=== PATIENT | male | born 1955 | race African-American/Black ===

== ENCOUNTER 2022-01-23 08:38 | Outpatient (CLI) | payer MEDICARE, MEDICAID, SELFPAY ==
[2022-01-23 12:38] LABS: Albumin* 4.2 g/dL (3.3-5.0)
[2022-01-23 12:39] LABS: Chloride* 104 mmol/L (96-114); Potassium* 4.5 mmol/L (3.6-5.1); Sodium* 138 mmol/L (135-149)
[2022-01-23 12:41] LABS: Alkaline Phosphatase* 86 U/L (40-150); Aspartate Amino Transferase* 45 U/L (12-35); Bilirubin Total* 0.9 mg/dL (0.1-1.5); Blood Urea Nitrogen* 15 mg/dL (7-30); Carbon Dioxide* 29 mmol/L (20-32); Estimated Glomerular Filt Rate 84 ml/min
[2022-01-23 12:42] LABS: Alanine Aminotransferase* 19 U/L (4-50); Calcium* 8.6 mg/dL (8.4-10.6); Glucose* 187 mg/dL (60-115)
[2022-01-23 13:10] LABS: PSA Diagnostic* 0.37 ng/mL (0.10-4.00)
== END 2022-01-23 08:39 | disposition home or self-care (01) ==
PROVIDERS: PCP Family Medicine; Visit Provider Family Medicine
DX: I10 Essential (primary) hypertension (principal); C61 Malignant neoplasm of prostate; E66.9 Obesity, unspecified; I48.91 Unspecified atrial fibrillation; Z13.29 Encounter for screening for other suspected endocrine disorder
CPT/HCPCS: 80053; 84153; 84443

== ENCOUNTER 2022-02-05 10:37 | Emergency (ER) | payer MEDICARE, MEDICAID, SELFPAY ==
[2022-02-05 11:03] VITALS: BP 146/84; PULSE 69; RESP 18; TEMP 36.2; O2SAT 94; BMI 55.1
--- NOTE | 2022-02-05 12:15 | ED_ITS ---
HPI - Abdominal Pain General Chief Complaint: Abdominal Pain Stated Complaint: Abdominal pain Time Seen by Provider: 02/05/22 12:09 History of Present Illness HPI narrative: This 66-year-old male comes in reporting upper epigastric abdominal pain radiating through to his back. This is been present over the past 3 days or so but much worse recently. He states that he has a history of pancreatitis. He still has is gallbladder in place. He states that he does take alcohol. He has decreased food and drink intake recently due to his symptoms. He states that the pain last night was not tolerable. Related Data Home Medications Medication Instructions Recorded Confirmed ReliOn Flex Pen 12 unit INJECTION .Before Each Meal 09/26/21 amlodipine 10 mg tablet 10 mg PO QDAY 09/26/21 tadalafil 20 mg tablet (Cialis) 20 mg PO QDAY PRN 09/26/21 tizanidine 4 mg capsule 2 - 4 mg PO Q8H PRN 09/26/21 Previous Rx's Medication Instructions Recorded blood-glucose meter (Blood Glucose #1 ea 01/23/22 Monitoring kit) furosemide 40 mg tablet 40 mg PO BID #180 tabs 01/23/22 glipizide 10 mg tablet 10 mg PO BID #180 tabs 01/23/22 insulin aspart U-100 100 unit/mL 12 unit (0.12 mL) subcut TID #15 mL 01/23/22 (3 mL) subcutaneous pen levetiracetam 1,000 mg tablet See Rx Instructions .Route 01/23/22 .COMPLEX #225 tabs lisinopril 20 2 tab PO QDAY #180 tabs 01/23/22 mg-hydrochlorothiazide 12.5 mg tablet metformin 1,000 mg tablet 1,000 mg PO BIDWMEAL #180 tabs 01/23/22 metoprolol tartrate 50 mg tablet 50 mg PO BID #180 tabs 01/23/22 spironolactone 25 mg tablet 25 mg PO QDAY #90 tabs 01/23/22 warfarin 7.5 mg tablet 15 mg PO .UD #60 tabs 01/23/22 hydrocodone 5 mg-acetaminophen 325 1 tab PO Q4-6H PRN pain #12 tabs 02/05/22 mg tablet pantoprazole 20 mg tablet,delayed 20 mg PO DAILY #20 tabs 02/05/22 release (Protonix) Allergies Allergy/AdvReac Type Severity Reaction Status Date / Time No Known Allergies Allergy Unknown Unverified 12/21/21 16:00 Review of Systems Status of ROS Reports: 10 or more systems reviewed and unremarkable except as noted in History and below Narrative Constitutional: No fevers, no weight gain or loss. Eyes: No discharge. No vision changes. HENT: No congestion, no sore throat, no ear pain. Cardiovascular: No chest pain, no palpitations. Respiratory: No shortness of breath, no wheezes, no cough. Gastrointestinal: Upper epigastric abdominal pain with nausea. Pain radiates through to the back. Genitourinary: No dysuria, no hematuria. Musculoskeletal: Normal range of motion. Skin: No rashes, no pruritis. Neurological: No dizziness, weakness, sensory change, speech change. Endo/Heme/Allergies: No bruising or bleeding. No polydipsia. Pysch: no suicidality, no anxiety, no insomnia. All other systems reviewed and are negative. [facility] Surgical History History of esophageal surgery History of laminectomy History of tonsillectomy and adenoidectomy Social History Smoking Status: Former smoker Non-prescribed substance use: denies use Exam Narrative: Exam Narrative: Constitutional: Well-developed, well-nourished, no acute distress. HEENT: Normocephalic, atraumatic. Neck: Normal range of motion. Nontender. Supple. Heart: Regular. No murmurs. Normal rate. Intact distal pulses. Lungs: Clear to auscultation. No chest discomfort. No wheezes, rhonchi, or rales. Abdomen: Normal bowel sounds. Upper epigastric abdominal pain.. No rebound tenderness. Genitalia: Deferred. Back: No midline tenderness. Normal range of motion. Extremities: Normal range of motion. No injury. Skin: Intact. No rash. Warm. No erythema or pallor. Neurologic: No altered sensation. No weakness. Alert and oriented. Psychiatric: No suicidality. No anxiety or depression. No insomnia. Nursing notes and vitals signs are reviewed. Const: Vital Signs, click to edit/add: Vital Signs - 24 hr 02/05/22 11:03 Temperature 97.1 F L Pulse Rate [Right Pulse Oximeter] 69 Respiratory Rate 18 Blood Pressure [Ri ght Upper Arm] 146/84 H Pulse Oximetry 94 Oxygen Delivery Me thod Room Air Course Vital Signs Vital signs: Initial Vital Signs Temperature 97.1 F L 02/05/22 11:03 Temperature Source Temporal Artery Scan 02/05/22 11:03 Pulse Rate 69 02/05/22 11:03 Respiratory Rate 18 02/05/22 11:03 Blood Pressure 146/84 H 02/05/22 11:03 Blood Pressure Mean 104 02/05/22 11:03 Blood Pressure Position Sitting 02/05/22 11:03 Pulse Oximetry 94 02/05/22 11:03 Oxygen Delivery Method 02/05/22 11:03 Vital Signs Temperature 97.1 F L 02/05/22 11:03 Pulse Rate 69 02/05/22 11:03 Respiratory Rate 18 02/05/22 11:03 Blood Pressure 146/84 H 02/05/22 11:03 Pulse Oximetry 94 02/05/22 11:03 Oxygen Delivery Method 02/05/22 11:03 Temperature 97.1 F L 02/05/22 11:03 Pulse Rate 69 02/05/22 11:03 Respiratory Rate 18 02/05/22 11:03 Blood Pressure 146/84 H 02/05/22 11:03 Pulse Oximetry 94 02/05/22 11:03 Oxygen Delivery Method 02/05/22 11:03 MDM - Abdominal Pain MDM Narrative Medical decision making narrative: This patient comes in with upper epigastric abdominal pain that is suspicious for recurrent pancreatitis. An IV was established and the patient received 0.5 mg of Dilaudid and Zofran 4 mg. This brought sufficient relief to his pain. Lab results returned with reassuring findings. His lipase is actually within normal range. Other lab results also are reassuring. He may be exhibiting symptoms from chronic pancreatitis with a normal lipase level. In any event he is okay to return home as he has normal vital signs. I did prescribe Protonix and some tablets of [place]. I advised him to return if symptoms are recurrent or worsening. I advised him to avoid alcohol of course. Lab Data Labs: Lab Results 02/05/22 02/05/22 Range/Units 13:05 13:05 WBC 3.51 L (4.50-11.00) K/uL RBC 5.44 (4.30-5.90) m/uL Hgb 16.1 (13.5-17.5) gm/dL Hct 48.3 (37.0-53.0) % MCV 89 (80-100) fL MCH 30 (26-34) pg MCHC 33 (32-36) gm/dL RDW Coeff of Ramona 14.5 (11.5-15.5) % Plt Count 199 (140-440) K/uL Neut % (Auto) 46.5 (42.0-72.0) % Lymph % (Auto) 38.7 (20-44) % [place] % (Auto) 12.8 H (0.0-11.0) % Eos % (Auto) 1.4 (0.0-7.0) % Baso % (Auto) 0.3 (0.0-3.0) % Neut # (Auto) 1.60 L (1.7-7.0) K/uL Lymph # (Auto) 1.40 (0.90-2.90) K/uL [place] # (Auto) 0.40 (0.00-0.90) K/UL Eos # (Auto) 0.00 (0.00-0.50) K/uL Baso # (Auto) 0.00 (0.00-0.30) K/uL Sodium 137 (135-149) mmol/L Potassium 3.6 (3.6-5.1) mmol/L Chloride 93 L (96-114) mmol/L Carbon Dioxide 37 H (20-32) mmol/L BUN 23 (7-30) mg/dL Creatinine 1.3 (0.5-1.5) mg/dL Estimated Creat Clear 62.18 Estimated GFR 61 ml/min Glucose 94 (60-115) mg/dL Calcium 8.7 (8.4-10.6) mg/dL Total Bilirubin 0.6 (0.1-1.5) mg/dL Direct Bilirubin 0.3 (0.0-0.5) mg/dL AST 22 (12-35) U/L ALT 15 (4-50) U/L Alkaline Phosphatase 53 (40-150) U/L Total Protein 7.4 (6.0-8.3) g/dL Albumin 4.3 (3.3-5.0) g/dL Lipase 237 (23-300) U/L Ethyl Alcohol < 0.01 L (0.01-0.03) % Discharge Plan Discharge Clinical Impression: Chronic pancreatitis, Abdominal pain Patient Disposition: Home, Self-Care Condition: Improved Additional Instructions: Take medication as needed and indicated. Avoid alcohol. Follow up with MD or return if worsening symptoms happen. Prescriptions: New hydrocodone-acetaminophen 5-325 mg tablet 1 tab PO Q4-6H PRN (Reason: pain) Qty: 12 0RF pantoprazole [Protonix] 20 mg tablet,delayed release (DR/EC) 20 mg PO DAILY Qty: 20 2RF No Action furosemide 40 mg tablet 40 mg PO BID Qty: 180 3RF glipizide 10 mg tablet 10 mg PO BID Qty: 180 3RF levetiracetam 1,000 mg tablet See Rx Instructions .ROUTE .COMPLEX Qty: 225 3RF Dose Instruction: TAKE 1 TABLET BY MOUTH IN THE MORNING AND 1.5 TABLETS AT BEDTIME Rx Instructions: TAKE 1 TABLET BY MOUTH IN THE MORNING AND 1.5 TABLETS AT BEDTIME lisinopril-hydrochlorothiazide 20-12.5 mg tablet 2 tab PO QDAY Qty: 180 3RF metformin 1,000 mg tablet 1,000 mg PO BIDWMEAL Qty: 180 3RF metoprolol tartrate 50 mg tablet 50 mg PO BID Qty: 180 3RF spironolactone 25 mg tablet 25 mg PO QDAY Qty: 90 3RF warfarin 7.5 mg tablet 15 mg PO .UD Qty: 60 11RF insulin aspart U-100 100 unit/mL (3 mL) insulin pen 12 unit subcut TID Qty: 15 5RF (DME) blood-glucose meter [Blood Glucose Monitoring] Kit See Rx Instructions .Route Qty: 1 0RF Rx Instructions: BID ReliOn Flex Pen 12 unit INJECTION .Before Each Meal amlodipine 10 mg tablet 10 mg PO QDAY tizanidine 4 mg capsule 2 - 4 mg PO Q8H PRN tadalafil [Cialis] 20 mg tablet 20 mg PO QDAY PRN Rx Instructions: administer approximately 30min before sexual activity; do not use more than 1 dose per 24hrs Follow Up/Referrals: Isaac Logan MD [Primary Care Provider] - Stand Alone Forms: [employer] [place] Info Instructions
[2022-02-05 13:12] LABS: Basophils Percent Auto 0.3 % (0.0-3.0); Eosinophils Percent Auto 1.4 % (0.0-7.0); Hematocrit 48.3 % (37.0-53.0); Hemoglobin* 16.1 gm/dL (13.5-17.5); Immature Granulocytes Pct Auto 0.3 %; Lymphocytes Percent Auto 38.7 % (20-44); Mean Corpuscular HGB Conc 33 gm/dL (32-36); Mean Corpuscular Hemoglobin 30 pg (26-34); Mean Corpuscular Volume 89 fL (80-100); Monocytes Percent Auto 12.8 % (0.0-11.0); Neutrophils Percent Auto 46.5 % (42.0-72.0); Platelet Count* 199 K/uL (140-440); RDW Coefficient of Variation % 14.5 % (11.5-15.5); Red Blood Count 5.44 m/uL (4.30-5.90); White Blood Count* 3.51 K/uL (4.50-11.00)
[2022-02-05 13:19] LABS: Slide Review Reflex No
[2022-02-05 13:27] LABS: Albumin* 4.3 g/dL (3.3-5.0); Chloride* 93 mmol/L (96-114); Sodium* 137 mmol/L (135-149)
[2022-02-05] MEDS: HYDROmorphone 0.5 mg/0.5 ml inj IVP (13:27)
[2022-02-05] MEDS: 0.9 % SODIUM CHLORIDE 1000 ml 1,000 ML IV (13:27)
[2022-02-05] MEDS: ONDANSETRON 2 MG/ML inj 4 MG IVP (13:27)
[2022-02-05 13:28] LABS: Potassium* 3.6 mmol/L (3.6-5.1)
[2022-02-05 13:30] LABS: Alkaline Phosphatase* 53 U/L (40-150); Aspartate Amino Transferase* 22 U/L (12-35); Bilirubin Direct* 0.3 mg/dL (0.0-0.5); Bilirubin Total* 0.6 mg/dL (0.1-1.5); Blood Urea Nitrogen* 23 mg/dL (7-30); Calcium* 8.7 mg/dL (8.4-10.6); Carbon Dioxide* 37 mmol/L (20-32); Creatinine* 1.3 mg/dL (0.5-1.5); Est. Creatinine Clearance* 62.18; Estimated Glomerular Filt Rate 61 ml/min; Glucose* 94 mg/dL (60-115); Lipase* 237 U/L (23-300); Total Protein* 7.4 g/dL (6.0-8.3)
[2022-02-05 13:31] LABS: Alanine Aminotransferase* 15 U/L (4-50)
[2022-02-05 13:35] LABS: Ethanol* < 0.01 % (0.01-0.03)
[2022-02-05 14:17] VITALS: RESP 20; TEMP 36.2; O2SAT 90
== END 2022-02-05 14:18 | disposition home or self-care (01) ==
PROVIDERS: Emergency Provider Emergency Medicine Emergency Medical Services; PCP Family Medicine
DX: K85.90 Acute pancreatitis without necrosis or infection, unspecified (principal)
CPT/HCPCS: 36415; 80048; 80076; 82077; 83690; 85025; 96374; 96375; 99284; J1170; J2405; J7030

== ENCOUNTER 2022-02-07 14:00 | Emergency (ER) | payer MEDICARE, MEDICAID, SELFPAY ==
[2022-02-07 14:17] VITALS: BP 160/121; PULSE 80; RESP 18; TEMP 36.1; O2SAT 93; BMI 55.1
--- NOTE | 2022-02-07 14:44 | ED.GENADULT ---
HPI - General Adult General Chief complaint: Neuro Symptoms/Altered Deficit Stated complaint: Seizures Time Seen by Provider: 02/07/22 14:19 History of Present Illness HPI narrative: This 66-year-old male comes in reporting some brief jolts or jerks that began about 12 hours prior to arrival. He states that he had this once before in the distant past and was told that they are like pre seizures. He has never had a seizure. He does have recurrent or chronic pancreatitis. He was seen by me a couple days ago for upper epigastric abdominal pain typical of pancreatitis. His lipase returned normal and yet it seems that this was perhaps a chronic pancreatitis. He states that he has not had any alcohol since then. He does not report any symptoms of withdrawal. He does not have a headache or show any sign of neurologic deficit. During my interview with him there were several episodes where he had a brief contraction of muscles generally making him jump a bit on the gurney. Related Data Home Medications Medication Instructions Recorded Confirmed ReliOn Flex Pen 12 unit INJECTION .Before Each Meal 09/26/21 amlodipine 10 mg tablet 10 mg PO QDAY 09/26/21 tadalafil 20 mg tablet (Cialis) 20 mg PO QDAY PRN 09/26/21 tizanidine 4 mg capsule 2 - 4 mg PO Q8H PRN 09/26/21 Previous Rx's Medication Instructions Recorded blood-glucose meter (Blood Glucose #1 ea 01/23/22 Monitoring kit) furosemide 40 mg tablet 40 mg PO BID #180 tabs 01/23/22 glipizide 10 mg tablet 10 mg PO BID #180 tabs 01/23/22 insulin aspart U-100 100 unit/mL 12 unit (0.12 mL) subcut TID #15 mL 01/23/22 (3 mL) subcutaneous pen levetiracetam 1,000 mg tablet See Rx Instructions .Route 01/23/22 .COMPLEX #225 tabs lisinopril 20 2 tab PO QDAY #180 tabs 01/23/22 mg-hydrochlorothiazide 12.5 mg tablet metformin 1,000 mg tablet 1,000 mg PO BIDWMEAL #180 tabs 01/23/22 metoprolol tartrate 50 mg tablet 50 mg PO BID #180 tabs 01/23/22 spironolactone 25 mg tablet 25 mg PO QDAY #90 tabs 01/23/22 warfarin 7.5 mg tablet 15 mg PO .UD #60 tabs 01/23/22 hydrocodone 5 mg-acetaminophen 325 1 tab PO Q4-6H PRN pain #12 tabs 02/05/22 mg tablet pantoprazole 20 mg tablet,delayed 20 mg PO DAILY #20 tabs 02/05/22 release (Protonix) hydrocodone 5 mg-acetaminophen 325 1 tab PO Q4-6H PRN pain #10 tabs 02/07/22 mg tablet pantoprazole 20 mg tablet,delayed 20 mg PO DAILY #20 tabs 02/07/22 release (Protonix) Allergies Allergy/AdvReac Type Severity Reaction Status Date / Time No Known Allergies Allergy Unknown Verified 02/07/22 14:16 Review of Systems Status of ROS: Reports: 10 or more systems reviewed and unremarkable except as noted in History and below Narrative: Constitutional: No fevers, no weight gain or loss. Eyes: No discharge. No vision changes. HENT: No congestion, no sore throat, no ear pain. Cardiovascular: No chest pain, no palpitations. Respiratory: No shortness of breath, no wheezes, no cough. Gastrointestinal: No abdominal pain, no vomiting, no diarrhea. Genitourinary: No dysuria, no hematuria. Musculoskeletal: Normal range of motion. Skin: No rashes, no pruritis. Neurological: No dizziness, weakness, sensory change, speech change. Brief myoclonic jerks. Endo/Heme/Allergies: No bruising or bleeding. No polydipsia. Pysch: no suicidality, no anxiety, no insomnia. All other systems reviewed and are negative. [facility] Surgical History History of esophageal surgery History of laminectomy History of tonsillectomy and adenoidectomy Social History Smoking Status: Former smoker Do you use any of these nicotine containing products: None Second hand tobacco smoke exposure: No How often do you have a drink containing alcohol: 2-4 times a month How many standard drinks containing alcohol do you have on a typical day: 1 or 2 How often do you have six or more drinks on one occasion: Less than monthly AUDIT-C Alcohol total score: 3 Non-prescribed substance use: denies use service: No Exam Narrative: Exam Narrative: Constitutional: Well-developed, well-nourished, no acute distress. HEENT: Normocephalic, atraumatic. Neck: Normal range of motion. Nontender. Supple. Heart: Regular. No murmurs. Normal rate. Intact distal pulses. Lungs: Clear to auscultation. No chest discomfort. No wheezes, rhonchi, or rales. Abdomen: Normal bowel sounds. Upper epigastric pain. No rebound tenderness. Genitalia: Deferred. Back: No midline tenderness. Normal range of motion. Extremities: Normal range of motion. No injury. Skin: Intact. No rash. Warm. No erythema or pallor. Neurologic: No altered sensation. No weakness. Alert and oriented. No unilateral deficits. Brief generalized myoclonic jerks lasting about one second. Psychiatric: No suicidality. No anxiety or depression. No insomnia. Nursing notes and vitals signs are reviewed. Const: Vital Signs, click to edit/add: Vital Signs - 24 hr 02/07/22 14:17 Temperature 97 F L Pulse Rate [Pulse Oximeter] 80 Respiratory Rate 18 Blood Pressure [Le ft Upper Arm] 160/121 H Pulse Oximetry 93 Oxygen Delivery Me thod Room Air Course Vital Signs Vital signs: Initial Vital Signs Temperature 97 F L 02/07/22 14:17 Temperature Source Temporal Artery Scan 02/07/22 14:17 Pulse Rate 80 02/07/22 14:17 Pulse Rhythm 02/07/22 14:17 Respiratory Rate 18 02/07/22 14:17 Blood Pressure 160/121 H 02/07/22 14:17 Blood Pressure Mean 134 02/07/22 14:17 Blood Pressure Position Supine 02/07/22 14:17 Pulse Oximetry 93 02/07/22 14:17 Oxygen Delivery Method 02/07/22 14:17 Vital Signs Temperature 97 F L 02/07/22 14:17 Pulse Rate 80 02/07/22 14:17 Respiratory Rate 18 02/07/22 14:17 Blood Pressure 160/121 H 02/07/22 14:17 Pulse Oximetry 93 02/07/22 14:17 Oxygen Delivery Method 02/07/22 14:17 Temperature 97 F L 02/07/22 14:17 Pulse Rate 80 02/07/22 14:17 Respiratory Rate 18 02/07/22 14:17 Blood Pressure 160/121 H 02/07/22 14:17 Pulse Oximetry 93 02/07/22 14:17 Oxygen Delivery Method 02/07/22 14:17 Medical Decision Making MDM Narrative Medical decision making narrative: This patient comes in with some episodes of myoclonic jerks. He arrives with normal vital signs. He did receive an oral dose of Ativan 1 mg. This brought complete relief of his symptoms. I did check lab results and there are few returning with some relevant results. His lipase again is in normal range. His carbon dioxide is elevated at 41. He states that he does not have any particular history of respiratory disease. He is morbidly obese. He does have diabetes and has been taking his medications for diabetes. Because of his upper epigastric pain he has not been eating so much recently. He also reports that he has not taken any alcohol as this is probably what triggered some symptoms in the previous visit here a couple days ago. He could have a normal lipase level with a chronic pancreatitis. His glucose level today is a bit low at 55. This may also contribute to some of the involuntary jerks. I advised him to take food. He may need to decrease his glucose lowering medications if not eating as much. He is okay to be discharged home. I provided prescription for Protonix and a few tablets of Ativan and a few more tablets of [place]. He understands that these last 2 medicines are not to be taken simultaneously. Lab Data Labs: Lab Results 02/07/22 02/07/22 Range/Units 15:00 15:00 WBC 3.45 L (4.50-11.00) K/uL RBC 5.66 (4.30-5.90) m/uL Hgb 16.9 (13.5-17.5) gm/dL Hct 50.9 (37.0-53.0) % MCV 90 (80-100) fL MCH 30 (26-34) pg MCHC 33 (32-36) gm/dL RDW Coeff of Ramona 14.4 (11.5-15.5) % Plt Count 189 (140-440) K/uL Neut % (Auto) 48.1 (42.0-72.0) % Lymph % (Auto) 37.4 (20-44) % [place] % (Auto) 12.5 H (0.0-11.0) % Eos % (Auto) 1.4 (0.0-7.0) % Baso % (Auto) 0.3 (0.0-3.0) % Neut # (Auto) 1.70 (1.7-7.0) K/uL Lymph # (Auto) 1.30 (0.90-2.90) K/uL [place] # (Auto) 0.40 (0.00-0.90) K/UL Eos # (Auto) 0.00 (0.00-0.50) K/uL Baso # (Auto) 0.00 (0.00-0.30) K/uL Sodium 139 (135-149) mmol/L Potassium 3.1 L (3.6-5.1) mmol/L Chloride 88 L (96-114) mmol/L Carbon Dioxide 41 H* (20-32) mmol/L BUN 23 (7-30) mg/dL Creatinine 1.4 (0.5-1.5) mg/dL Estimated Creat Clear 57.74 Estimated GFR 56 ml/min Glucose 55 L (60-115) mg/dL Calcium 8.5 (8.4-10.6) mg/dL Lipase 237 (23-300) U/L Discharge Plan Discharge Clinical Impression: Hypoglycemia, Myoclonic jerking Patient Disposition: Home, Self-Care Condition: Improved Additional Instructions: Take medication as needed and indicated. Follow up with MD or return if worsening. Prescriptions: New hydrocodone-acetaminophen 5-325 mg tablet 1 tab PO Q4-6H PRN (Reason: pain) Qty: 10 0RF pantoprazole [Protonix] 20 mg tablet,delayed release (DR/EC) 20 mg PO DAILY Qty: 20 2RF No Action furosemide 40 mg tablet 40 mg PO BID Qty: 180 3RF glipizide 10 mg tablet 10 mg PO BID Qty: 180 3RF levetiracetam 1,000 mg tablet See Rx Instructions .ROUTE .COMPLEX Qty: 225 3RF Dose Instruction: TAKE 1 TABLET BY MOUTH IN THE MORNING AND 1.5 TABLETS AT BEDTIME Rx Instructions: TAKE 1 TABLET BY MOUTH IN THE MORNING AND 1.5 TABLETS AT BEDTIME lisinopril-hydrochlorothiazide 20-12.5 mg tablet 2 tab PO QDAY Qty: 180 3RF metformin 1,000 mg tablet 1,000 mg PO BIDWMEAL Qty: 180 3RF metoprolol tartrate 50 mg tablet 50 mg PO BID Qty: 180 3RF spironolactone 25 mg tablet 25 mg PO QDAY Qty: 90 3RF warfarin 7.5 mg tablet 15 mg PO .UD Qty: 60 11RF insulin aspart U-100 100 unit/mL (3 mL) insulin pen 12 unit subcut TID Qty: 15 5RF (DME) blood-glucose meter [Blood Glucose Monitoring] Kit See Rx Instructions .Route Qty: 1 0RF Rx Instructions: BID hydrocodone-acetaminophen 5-325 mg tablet 1 tab PO Q4-6H PRN (Reason: pain) Qty: 12 0RF pantoprazole [Protonix] 20 mg tablet,delayed release (DR/EC) 20 mg PO DAILY Qty: 20 2RF ReliOn Flex Pen 12 unit INJECTION .Before Each Meal amlodipine 10 mg tablet 10 mg PO QDAY tizanidine 4 mg capsule 2 - 4 mg PO Q8H PRN tadalafil [Cialis] 20 mg tablet 20 mg PO QDAY PRN Rx Instructions: administer approximately 30min before sexual activity; do not use more than 1 dose per 24hrs Follow Up/Referrals: Isaac Logan MD [Primary Care Provider] - Stand Alone Forms: [employer] Info Instructions
[2022-02-07] MEDS: LORazepam 1 MG TABLET PO (14:58)
[2022-02-07 15:17] LABS: Basophils Percent Auto 0.3 % (0.0-3.0); Eosinophils Percent Auto 1.4 % (0.0-7.0); Hematocrit 50.9 % (37.0-53.0); Hemoglobin* 16.9 gm/dL (13.5-17.5); Immature Granulocytes Pct Auto 0.3 %; Lymphocytes Percent Auto 37.4 % (20-44); Mean Corpuscular HGB Conc 33 gm/dL (32-36); Mean Corpuscular Hemoglobin 30 pg (26-34); Mean Corpuscular Volume 90 fL (80-100); Monocytes Percent Auto 12.5 % (0.0-11.0); Neutrophils Percent Auto 48.1 % (42.0-72.0); Platelet Count* 189 K/uL (140-440); RDW Coefficient of Variation % 14.4 % (11.5-15.5); Red Blood Count 5.66 m/uL (4.30-5.90); White Blood Count* 3.45 K/uL (4.50-11.00)
[2022-02-07 15:29] LABS: Chloride* 88 mmol/L (96-114); Potassium* 3.1 mmol/L (3.6-5.1); Slide Review Reflex No; Sodium* 139 mmol/L (135-149)
[2022-02-07 15:31] LABS: Creatinine* 1.4 mg/dL (0.5-1.5); Est. Creatinine Clearance* 57.74; Estimated Glomerular Filt Rate 56 ml/min; Lipase* 237 U/L (23-300)
[2022-02-07 15:32] LABS: Blood Urea Nitrogen* 23 mg/dL (7-30); Calcium* 8.5 mg/dL (8.4-10.6); Glucose* 55 mg/dL (60-115)
[2022-02-07 15:41] LABS: Carbon Dioxide* 41 mmol/L (20-32)
--- NOTE | 2022-02-07 16:35 | ED.NURSE ---
pt given sandwhich and juice for blood sugar. Per thelma Aguirre for pt to d/c to home with his glucose level.
== END 2022-02-07 16:44 | disposition home or self-care (01) ==
PROVIDERS: Emergency Provider Emergency Medicine Emergency Medical Services; PCP Family Medicine
DX: G25.3 Myoclonus (principal); E16.2 Hypoglycemia, unspecified
CPT/HCPCS: 36415; 80048; 83690; 85025; 99284; A9270

== ENCOUNTER 2022-02-13 10:11 | Outpatient (CLI) | payer MEDICARE, MEDICAID, SELFPAY | END 2022-02-13 10:12 | disposition home or self-care (01) | PROVIDERS: PCP Family Medicine; Visit Provider Family Medicine | DX: R10.9 Unspecified abdominal pain (principal); E66.01 Morbid (severe) obesity due to excess calories; R31.0 Gross hematuria | CPT/HCPCS: 74177; 87086; Q9967 ==

== ENCOUNTER 2022-04-01 11:12 | Outpatient (CLI) | payer MEDICARE, MEDICAID, SELFPAY ==
[2022-04-01 17:47] LABS: Chloride* 96 mmol/L (96-114); Potassium* 4.2 mmol/L (3.6-5.1); Sodium* 134 mmol/L (135-149)
[2022-04-01 17:50] LABS: Blood Urea Nitrogen* 21 mg/dL (7-30); Carbon Dioxide* 32 mmol/L (20-32); Estimated Glomerular Filt Rate 84 ml/min; Glucose* 173 mg/dL (60-115)
[2022-04-01 17:51] LABS: Calcium* 8.6 mg/dL (8.4-10.6)
== END 2022-04-01 11:13 | disposition home or self-care (01) ==
LOC: LONREF 11:14
PROVIDERS: PCP Family Medicine; Visit Provider Family Medicine
DX: Z01.818 Encounter for other preprocedural examination (principal)
CPT/HCPCS: 80048

== ENCOUNTER 2022-05-25 08:38 | Outpatient (CLI) | payer MEDICARE, MEDICAID, SELFPAY | END 2022-05-25 08:39 | disposition home or self-care (01) | LOC: NFLDREF 05-26 12:16 | PROVIDERS: PCP Family Medicine; Referring Provider Family Medicine; Visit Provider Family Medicine | DX: R31.0 Gross hematuria (principal); E13.9 Other specified diabetes mellitus without complications; R53.1 Weakness; M54.9 Dorsalgia, unspecified; Z13.89 Encounter for screening for other disorder | CPT/HCPCS: 87086 ==

== ENCOUNTER 2022-06-18 09:30 | Outpatient (RCR) | payer MEDICARE, MEDICAID, SELFPAY ==
--- NOTE | 2022-05-29 13:10 | PT.OPEX ---
[facility] PT [facility] Out[facility] Eval Start: 05/29/22 09:02 Freq: Status: Active Protocol: Document 05/29/22 09:02 WENDY (Rec: 05/29/22 12:49 WENDY [id number]) E-signed By Hattie Walker Physical Therapy Outpatient Evaluation Insurance Information Recert Due Date 08/28/22 Insurance Name Medicare B,Medicaid,[employer] Medical Diagnosis R53.1 Weakness Treating Diagnosis R53.1 Weakness R26.9 Gait abnormality R26.81 Unsteadiness on feet Referring MD Isaac Logan Subjective Subjective Pt presents to PT with complaints of weakness. Pt uses SPC for mobility. Getting out of chairs, walking any distance, standing for any time is more difficult. R foot continues to have weakness from CVA in 2009. Pt reports having lots of falls over the last year. Pt's most recent fall was 1 month ago, he was picking up something from the floor and collapsed. Pt states that when he had his stroke he didn't have health insurance and couldn't afford to go PT. No pain, occasionally will have pain shooting through R foot. Pt with complaints of lightheadedness when changing positions, recently was taken off medication last week. Lives at home with , IND with ADLs. Has RW at home. Occasionally goes w/o AD at home and holds onto furniture and the hernandez. Pt lives in multilevel home, reports stairs are difficult, is looking to move into a rambler style home. Pain Comments 06/17 Date of Last Physician Visit 05/20/22 Current Work Status [employer] Occupation Works 10 hours as a [employer] Prolonged sitting required Preferred Name Alex[employer] Precautions Treatment Precautions/Contraindications PMHx: DM, HTN, CVA in 2009, A- fib, seizure disorder, and chronic back pain. Weight Bearing Status Full Weight Bearing Therapy Limitations/Systems Review Not Limited Objective Range of Motion PROM WNLs Strength RUE = 3+/5, biceps = 3/5 LUE = 4/5 L hip flexion =3+/5 R hip flexion = 3/5 L hip abd/add = 4-/5 R hip abd/add = 3/5 L quads/hamstrings = 4/5 R quads = 3+/5 R hamstrings = 4-/5 L dorsiflexors = 4/5 R dorsiflexors = 3+/5 B calf raises = 20 Balance & Gait Pt using SPC for gait, shuffling gait pattern with dec foot clearance Functional Test Performed & Score 5xSTS = 29s TUG = 25.6s, 3 trials CHRIS = 31/56 Assessment Assessment/Impression Pt is a 66yo M presenting to PT with complaints of weakness . PMHx: DM, HTN, CVA in 2010, A-fib, seizure disorder, and chronic back pain. Pt reports that ever since his CVA he has gotten progressively weaker. Pt states that he has had many falls in the last year, with the last one being a month ago when he tried to pick something up off the floor. Uses SPC at baseline. Demonstrates dec step clearance with shuffling gait pattern. Pt demonstrates balance deficits and high fall risk as determined by his score of 31/56 on the CHRIS, 29s 5xSTS, and 25.6s TUG. Pt would continue to benefit from skilled PT services to address balance, strength, and gait deficits. Primary Functional Limitations Balance deficits Gait deficits Generalized weakness Plan of Care Rehabilitation Potential Good Physical Therapy Goals In 8 visits: 1. Pt will inc CHRIS score to > 43/56 in order to reduce fall risk in the community. 2. Pt will reduce TUG score < 13s in order to reduce fall risk in the community. 3. Pt will reduce 5xSTS score < 15s in order to reduce fall risk in the community. 4. Pt will successfully get in /out of boat [place] using least restrictive AD in order to fish this summer. Coordination/Communication With Referral Source Treatment Plan/Direct Interventions Gait Training,Manual Therapy, Neuromuscular Re-ed,Self-Care/ Home Management,Therapeutic Activities,Therapeutic Exercises Frequency/Duration 1x/week for 8 weeks. Patient Will Be Discharged From Therapy Completion of LTG(s),Skills Plateau,Independent w/HEP, Independently Progressing Evaluation Billing Untimed Code Treatment Minutes 35 PT Eval No Charge No Complexity High Certification Information Initial Certification Date 05/29/22 Ending Certification Date 08/28/22 Provider Signature Shows Agreement With POC & Medical Necessity Physician Comment/Change : Physician NPI Number #
== END 2022-10-16 23:59 | disposition home or self-care (01) ==
PROVIDERS: PCP Family Medicine; Visit Provider Family Medicine
DX: R53.1 Weakness (principal); Z51.89 Encounter for other specified aftercare
CPT/HCPCS: 97110; 97112; 97163; 97535

== ENCOUNTER 2022-06-20 12:36 | Outpatient (CLI) | payer MEDICARE, MEDICAID, SELFPAY | END 2022-06-20 12:37 | disposition home or self-care (01) | LOC: AMB 06-22 12:32 | PROVIDERS: PCP Family Medicine; Visit Provider Emergency Medicine Emergency Medical Services | DX: R53.1 Weakness (principal) ==

== ENCOUNTER 2022-08-31 11:37 | Outpatient (CLI) | payer OTHER, SELFPAY | END 2022-08-31 11:38 | disposition home or self-care (01) | PROVIDERS: PCP Family Medicine; Visit Provider Family Medicine | DX: E13.9 Other specified diabetes mellitus without complications (principal); I10 Essential (primary) hypertension; I48.91 Unspecified atrial fibrillation; C61 Malignant neoplasm of prostate | CPT/HCPCS: 80048; 84153 ==

== ENCOUNTER 2022-09-09 08:30 | Observation (INO) | payer OTHER, SELFPAY ==
[2022-09-09] VITALS (47 sets, daily range): BP systolic 126–179; BP diastolic 65–114; PULSE 77–99; RESP 18–20; TEMP 35.8–37.2; O2SAT 85–98; BMI 48.8
--- NOTE | 2022-09-09 09:50 | CRLHL7_ITS ---
For Patients: As a result of the Century Cures Act, medical imaging exams and procedure reports are released immediately into your electronic medical record. You may view this report before your referring provider. If you have questions, please contact your health care provider. Indication: Vertigo Technique: Volumetric multidetector CT images of the head were obtained without the administration of low osmolar intravenous contrast. Comparison: CT head April 24, 2018 and MRI brain June 24, 2022 Findings: There is no intra-axial or extra-axial fluid collection. There is no mass effect or midline shift. There is age-related cortical atrophy with mild sulcal widening and ex vacuo dilatation of the lateral ventricles. There is again seen encephalomalacia of the medial left frontal lobe at the parasagittal vertex. There is moderate chronic small vessel disease change within the subcortical and periventricular white matter. Old lacunar change of the right carlito iveth is appreciated. Otherwise, the brain parenchyma is preserved and attenuation and villarreal-white differentiation. The orbits again demonstrate moderate exophthalmos with moderate orbital lipomatosis. There is demonstration of marked edema within the posterior cervical occipital midline soft tissues. The bony calvarium is otherwise grossly intact. The paranasal sinuses are clear. There is fluid within the right mastoid air cells. This is similar to remote comparison. Impression: Stable remote ischemic and chronic small-vessel disease changes of the brain without new acute intracranial abnormality. If there remains persisting clinical concern follow-up with MRI may be useful for assessment of additional subtle acute lacunar changes. Please note that all CT scans at this facility use dose modulation, iterative reconstruction, and/or weight-based dosing when appropriate to reduce radiation dose to as low as reasonably achievable. Dictated by Edison Tirado MD @ 09/09/2022 10:52:33 AM (Electronically Signed)
--- NOTE | 2022-09-09 09:54 | ED.GENADULT ---
HPI - General Adult General Time Seen by Provider: 09:54 Date Seen: 09/09/22 Chief complaint: Dizziness/Vertigo Stated complaint: weakness Time Seen by Provider: 09/09/22 09:00 Source: patient Mode of arrival: EMS Limitations: physical limitation History of Present Illness HPI narrative: Patient is a 66-year-old black male who lives near [place], sees Dr. Logan for primary care. 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 He is back on his Eliquis. Yesterday he was at his home and felt dizziness and it recurred continued today. He feels when he turns over quickly he feels much worse with spinning and feels unsteady. He was brought in by EMS. He denies chest pain, fevers, chills, cough. He did [facility]habilitate in a [facility] for period of time but he is back home now. He denies focal neurologic weakness, facial asymmetry, word-finding inability or visual problem. Patient denies headache. At this point he is simply troubled by vertigo he lies still he has pretty well. Related Data Home Medications Medication Instructions Recorded Confirmed sennosides 8.6 mg-docusate sodium 2 tab-cap PO BID PRN constipation 09/09/22 09/09/22 50 mg tablet (Stool Softener-Laxative) Previous Rx's Medication Instructions Recorded furosemide 40 mg tablet 40 mg PO BID #180 tabs 01/23/22 levetiracetam 1,000 mg tablet See Rx Instructions .Route 01/23/22 .COMPLEX #225 tabs metformin 1,000 mg tablet 1,000 mg PO BIDWMEAL #180 tabs 01/23/22 metoprolol tartrate 50 mg tablet 50 mg PO BID #180 tabs 01/23/22 tizanidine 4 mg tablet 2 - 4 mg (0.5 - 1 x 4 mg) PO Q8H 04/17/22 PRN for muscle spasm #36 tabs tadalafil 20 mg tablet 20 mg PO Q OTHER DAY PRN sexual 06/05/22 activity #6 tabs insulin detemir U-100 100 unit/mL 16 unit (0.16 mL) subcut QAM #15 mL 06/25/22 (3 mL) subcutaneous pen (Levemir FlexPen) magnesium oxide 400 mg (241.3 mg 400 mg PO DAILY #30 tabs 05/18/23 magnesium) tablet omeprazole 20 mg capsule,delayed 20 mg PO DAILY #30 caps 06/25/22 release apixaban 5 mg tablet (Eliquis) 5 mg PO BID #180 tabs 08/31/22 empagliflozin 25 mg tablet 25 mg PO QAM #90 tabs 08/31/22 (Jardiance) Allergies Allergy/AdvReac Type Severity Reaction Status Date / Time No Known Allergies Allergy Unknown Verified 09/09/22 08:39 Review of Systems Status of ROS: Reports: 10 or more systems reviewed and unremarkable except as noted in History and below [facility] Medical History Recurrent pancreatitis Sebaceous cyst ?L72.3 - Sebaceous cyst (ICD-10) Tobacco use ?Z72.0 - Tobacco use (ICD-10) Mastoiditis ?H70.90 - Unspecified mastoiditis, unspecified ear (ICD-10) Surgical History History of tonsillectomy and adenoidectomy ?Z90.89 - Acquired absence of other organs (ICD-10) History of laminectomy ?Z98.890 - Other specified postprocedural states (ICD-10) History of esophageal surgery ?Z98.890 - Other specified postprocedural states (ICD-10) Social History Narrative: . Lives independently. Smoked 40-50 years, 1 pack every 3 days. Quit all alcohol almost a year ago per Dr. Logan's recommendation. Uses marajuana daily to help with sleep. DNR/DNI. What is your current living situation?: I presently have a place to live Problems where you live: mold Problems where you live details: Mold in the basement In the past 12 months, utilities in danger of being shut off: no In the past 12 mos, have been you worried that your food would run out before you had money to buy more?: sometimes true In the past 12 mos, the food you bought just didn't last and you didn't have money to buy more?: sometimes true Highest level of school completed/degree received: Associate degree: occupational, technical, vocational program Smoking Status: Former smoker Do you use any of these nicotine containing products: None Second hand tobacco smoke exposure: No How often do you have a drink containing alcohol: never How often do you have six or more drinks on one occasion: Never AUDIT-C Alcohol total score: 0 Non-prescribed substance use: marijuana (any form) Non-prescribed substance use details: daily Caffeine: Yes (6 cups daily) How often does anyone, including family, friends and others, physically hurt you: never How often does anyone, including family, friends and others, insult or talk down to you: never How often does anyone, including family, friends and others, threaten you with harm: never How often does anyone, including family, friends and others, scream or curse at you: never service: No Exam Narrative: Exam Narrative: Objective: Patient has stable vital signs He is alert orient x3, no facial asymmetry, mouth is clear, neck is supple Chest clear Heart irregular rhythm 2/6 systolic murmur ectopic beat noted Abdomen obese benign nontender Extremities good mobility, no focal neurologic deficit, normal sensation, normal strength in upper lower extremities that is symmetric Const: Vital Signs, click to edit/add: Vital Signs - 24 hr 09/09/22 08:39 09/09/22 08:52 09/09/22 09:00 Temperature 96.5 F L Pulse Rate 88 85 Pulse Rate [Pulse Oximeter] 79 Respiratory Rate 18 Blood Pressure Blood Pressure [Le ft Upper Arm] 138/83 Pulse Oximetry [address] [facility] 09/09/22 09:02 09/09/22 09:15 09/09/22 09:30 Temperature Pulse Rate 88 80 87 Pulse Rate [Pulse Oximeter] Respiratory Rate Blood Pressure 144/95 H Blood Pressure [Le ft Upper Arm] Pulse Oximetry 96 88 97 Oxygen Delivery Ok thod 09/09/22 09:31 09/09/22 09:42 09/09/22 09:45 Temperature Pulse Rate 83 85 Pulse Rate [Pulse Oximeter] Respiratory Rate Blood Pressure 165/102 H Blood Pressure [Le ft Upper Arm] Pulse Oximetry 95 94 98 Oxygen Delivery Ok thod 09/09/22 10:00 09/09/22 10:02 09/09/22 10:03 Temperature Pulse Rate 85 85 85 Pulse Rate [Pulse Oximeter] Respiratory Rate Blood Pressure 179/88 H Blood Pressure [Le ft Upper Arm] Pulse Oximetry 98 94 94 Oxygen Delivery Me thod 09/09/22 10:05 09/09/22 10:29 09/09/22 10:30 Temperature Pulse Rate 88 81 88 Pulse Rate [Pulse Oximeter] Respiratory Rate Blood Pressure 179/88 H Blood Pressure [Le ft Upper Arm] Pulse Oximetry 96 93 97 Oxygen Delivery Me thod 09/09/22 10:32 09/09/22 10:50 09/09/22 11:00 Temperature Pulse Rate 86 91 81 Pulse Rate [Pulse Oximeter] Respiratory Rate Blood Pressure 141/73 H Blood Pressure [Le ft Upper Arm] Pulse Oximetry 95 98 85 L Oxygen Delivery Ok thod 09/09/22 11:05 09/09/22 11:15 09/09/22 11:30 Temperature Pulse Rate 88 80 85 Pulse Rate [Pulse Oximeter] Respiratory Rate Blood Pressure Blood Pressure [Le ft Upper Arm] Pulse Oximetry 92 95 98 Oxygen Delivery Ok thod 09/09/22 11:35 09/09/22 11:45 09/09/22 12:45 Temperature Pulse Rate 90 85 82 Pulse Rate [Pulse Oximeter] Respiratory Rate Blood Pressure Blood Pressure [Le ft Upper Arm] Pulse Oximetry 97 95 96 Oxygen Delivery Ok thod 09/09/22 12:47 09/09/22 12:48 09/09/22 13:00 Temperature Pulse Rate 89 89 83 Pulse Rate [Pulse Oximeter] Respiratory Rate Blood Pressure 133/65 Blood Pressure [Le ft Upper Arm] Pulse Oximetry 98 97 92 Oxygen Delivery Ok thod 09/09/22 13:02 09/09/22 13:15 09/09/22 13:30 Temperature Pulse Rate 78 85 84 Pulse Rate [Pulse Oximeter] Respiratory Rate Blood Pressure 141/87 H Blood Pressure [Le ft Upper Arm] Pulse Oximetry 93 90 93 Oxygen Delivery Me thod 09/09/22 13:32 09/09/22 13:45 09/09/22 14:00 Temperature Pulse Rate 89 87 77 Pulse Rate [Pulse Oximeter] Respiratory Rate Blood Pressure 155/93 H Blood Pressure [Le ft Upper Arm] Pulse Oximetry 94 92 92 Oxygen Delivery Ok thod 09/09/22 14:02 09/09/22 14:32 09/09/22 14:33 Temperature Pulse Rate 80 83 Pulse Rate [Pulse Oximeter] Respiratory Rate Blood Pressure 145/112 H 153/84 H Blood Pressure [Le ft Upper Arm] Pulse Oximetry 93 94 Oxygen Delivery Me thod 09/09/22 14:45 09/09/22 15:00 09/09/22 15:02 Temperature Pulse Rate 90 93 85 Pulse Rate [Pulse Oximeter] Respiratory Rate Blood Pressure 126/85 Blood Pressure [Le ft Upper Arm] Pulse Oximetry 98 97 96 Oxygen Delivery Me thod 09/09/22 15:15 Temperature Pulse Rate 93 Pulse Rate [Pulse Oximeter] Respiratory Rate Blood Pressure Blood Pressure [Le ft Upper Arm] Pulse Oximetry 97 Oxygen Delivery Me thod Course Vital Signs Vital signs: Initial Vital Signs Temperature 96.5 F L 09/09/22 08:39 Temperature Source Temporal Artery Scan 09/09/22 08:39 Pulse Rate 79 09/09/22 08:39 Pulse Rhythm Irregular 09/09/22 08:39 Respiratory Rate 18 09/09/22 08:39 Blood Pressure 138/83 09/09/22 08:39 Blood Pressure Mean 101 09/09/22 08:39 Blood Pressure Position Supine 09/09/22 08:39 Pulse Oximetry 98 09/09/22 08:39 Oxygen Delivery Method Room Air 09/09/22 08:39 Vital Signs Temperature 96.5 F L 09/09/22 08:39 Pulse Rate 79 09/09/22 08:39 Respiratory Rate 18 09/09/22 08:39 Blood Pressure 138/83 09/09/22 08:39 Pulse Oximetry 98 09/09/22 08:39 Oxygen Delivery Method Room Air 09/09/22 08:39 Temperature 98.9 F 09/09/22 15:46 Pulse Rate 86 09/09/22 15:46 Respiratory Rate 18 09/09/22 15:46 Blood Pressure 135/114 H 09/09/22 15:46 Pulse Oximetry 94 09/09/22 15:46 Oxygen Delivery Method Room Air 09/09/22 15:46 Medical Decision Making MDM Narrative Medical decision making narrative: Patient is a very complex 66-year-old black male with history of multiple medical problems including stroke atrial fibrillation hypertension diabetes. He has had a seizure disorder as well. He has vertigo starting yesterday and today. About 3 months after his pontine stroke. Think at this point be reasonable to get a CT scan again to make sure does not have new bleeding or other abnormality given he is on Eliquis. Disposition pending findings, will check electrolytes, IV fluid, IV Ativan. Patient was cup the workup and plan at this point. Addendum: 3:10 p.m. discussed with Stroke Neurology Dr. Diaz, who felt that given the patient's history we could keep him on Eliquis, control risk factors. The patient still is feeling a little vertiginous I think we should observe him as did the Stroke Neurology , no new real recommendations other than prevention of falls and maximal management of his stroke risk factors. Will discuss with hospitalist. Lab Data Labs: Lab Results 09/09/22 Range/Units 11:42 WBC 4.00 L (4.50-11.00) K/uL RBC 5.20 (4.30-5.90) m/uL Hgb 14.9 (13.5-17.5) gm/dL Hct 45.9 (37.0-53.0) % MCV 88 (80-100) fL MCH 29 (26-34) pg MCHC 33 (32-36) gm/dL RDW Coeff of Ramona 13.4 (11.5-15.5) % Plt Count 199 (140-440) K/uL Neut % (Auto) 67.1 (42.0-72.0) % Lymph % (Auto) 22.8 (20-44) % [place] % (Auto) 8.0 (0.0-11.0) % Eos % (Auto) 1.5 (0.0-7.0) % Baso % (Auto) 0.3 (0.0-3.0) % Neut # (Auto) 2.70 (1.7-7.0) K/uL Lymph # (Auto) 0.90 (0.90-2.90) K/uL [place] # (Auto) 0.30 (0.00-0.90) K/UL Eos # (Auto) 0.10 (0.00-0.50) K/uL Baso # (Auto) 0.00 (0.00-0.30) K/uL Abs Immat Gran (auto) 0.00 (0.00-0.30) K/uL Imm/Tot Granulo (auto) 0.3 % INR 1.12 H (0.91-1.10) APTT 30 (23-33) Seconds Sodium 140 (135-149) mmol/L Potassium 3.9 (3.6-5.1) mmol/L Chloride 101 (96-114) mmol/L Carbon Dioxide 30 (20-32) mmol/L BUN 19 (7-30) mg/dL Creatinine 1.1 (0.5-1.5) mg/dL Estimated Creat Clear 73.48 Estimated GFR 75 ml/min Glucose 138 H (60-115) mg/dL Calcium 9.1 (8.4-10.6) mg/dL Troponin I < 0.01 L (0.01-0.04) ng/mL C-Reactive Protein 0.6 (0.5-1.0) mg/dL NT-Pro-B Natriuret Pep 1510 pg/mL Discharge Plan Discharge Clinical Impression: Vertigo
[2022-09-09] MEDS: 0.9 % SODIUM CHLORIDE 500 ML 500 ML IV (09:58)
[2022-09-09] MEDS: LORazepam 2 MG/ML inj 1 MG IVP (10:01)
--- NOTE | 2022-09-09 11:15 | CRLHL7_ITS ---
For Patients: As a result of the Century Cures Act, medical imaging exams and procedure reports are released immediately into your electronic medical record. You may view this report before your referring provider. If you have questions, please contact your health care provider. Indication: vertigo Technique: Noncontrast sagittal T1 weighted, axial T2 fast spin echo, FLAIR, and diffusion weighted images of the head. Comparison: CT 09/09/2022, MRI 06/24/2022 Findings: Small focus of diffusion signal abnormality in the left superior frontal lobe without signal loss on ADC map. Moderate scattered patchy foci of increased T2 signal within the periventricular and subcortical white matter of both cerebral hemispheres. Chronic lacunar infarct in the right carlito iveth. Chronic infarct in the left parafalcine frontal and parietal cortex. Moderate cerebral parenchymal volume loss. The ventricles, sulci and gyri are of normal size, shape and contour for age and degree of atrophy. No regions of restricted diffusion. Midline structures are centrally located. No convincing evidence of suspicious intra- or extra-axial fluid collections. Complete opacification of the right mastoid air cells. Fluid in the right petrous apex. AP and large min to have the right globe likely due to staphyloma. Impression: 1. Small focus of diffusion signal abnormality in the left superior frontal lobe without signal loss on ADC map suggestive of a subacute ischemic infarct. 2. Moderate supratentorial white matter changes are non-specific but most likely related to small vessel ischemic disease. Moderate cerebral volume loss. 3. Chronic lacunar infarct in the right carlito iveth. Chronic infarct in the left parafalcine frontal and parietal cortex. 4. Complete opacification of the right mastoid air cells. Dictated by Jasen Maki MD @ 09/09/2022 2:26:42 PM (Electronically Signed)
[2022-09-09 11:53] LABS: Basophils Percent Auto 0.3 % (0.0-3.0); Eosinophils Percent Auto 1.5 % (0.0-7.0); Hematocrit 45.9 % (37.0-53.0); Hemoglobin* 14.9 gm/dL (13.5-17.5); Immature Granulocytes Pct Auto 0.3 %; Lymphocytes Percent Auto 22.8 % (20-44); Mean Corpuscular HGB Conc 33 gm/dL (32-36); Mean Corpuscular Hemoglobin 29 pg (26-34); Mean Corpuscular Volume 88 fL (80-100); Neutrophils Percent Auto 67.1 % (42.0-72.0); Platelet Count* 199 K/uL (140-440); RDW Coefficient of Variation % 13.4 % (11.5-15.5)
--- NOTE | 2022-09-09 11:55 | ED.NURSE ---
Pt to MRI.
[2022-09-09 12:06] LABS: Slide Review Reflex No
[2022-09-09 12:09] LABS: Chloride* 101 mmol/L (96-114); Potassium* 3.9 mmol/L (3.6-5.1); Sodium* 140 mmol/L (135-149)
[2022-09-09 12:10] LABS: INR 1.12 (0.91-1.10)
[2022-09-09 12:11] LABS: Partial Thromboplastin Time* 30 Seconds (23-33)
[2022-09-09 12:12] LABS: Creatinine* 1.1 mg/dL (0.5-1.5); Est. Creatinine Clearance* 73.48; Estimated Glomerular Filt Rate 75 ml/min
[2022-09-09 12:13] LABS: Blood Urea Nitrogen* 19 mg/dL (7-30); Calcium* 9.1 mg/dL (8.4-10.6); Carbon Dioxide* 30 mmol/L (20-32); Glucose* 138 mg/dL (60-115)
[2022-09-09 12:16] LABS: C Reactive Protein* 0.6 mg/dL (0.5-1.0)
[2022-09-09 12:23] LABS: NT Pro B Type NatriureticPept* 1510 pg/mL
[2022-09-09 12:27] LABS: Troponin I* < 0.01 ng/mL (0.01-0.04)
--- NOTE | 2022-09-09 13:04 | ED.NURSE ---
has been resting. awaiting results of the mri. has been on his phone. is alert and pleasant.
--- NOTE | 2022-09-09 14:14 | ED.NURSE ---
02 sats dip to lower 80s when he was sleeping. is awake now and reports that he does know that his oxygen levels drop like that. does not have a c pap at home. is using the urinal in bed. has chronic back pain. awaiting the mri results. has been resting. is not complaining of vertigo while in bed.
--- NOTE | 2022-09-09 14:40 | ED.NURSE ---
is awake and watching tv. 02 sats 95%. is alert and oriented. dr prado requesting neurologist consult through [facility]..
--- NOTE | 2022-09-09 15:18 | ED.NURSE ---
report was given to Doretha haile.
--- NOTE | 2022-09-09 15:30 | ED.NURSE ---
to [address] marmolejo was here and had accepted pt
[2022-09-09] MEDS: MECLIZINE HCL 25 MG TABLET PO (18:08)
[2022-09-09] MEDS: ACETAMINOPHEN 325 MG TABLET 650 MG PO (18:08)
[2022-09-09] MEDS: METFORMIN 1,000 MG TABLET 1000 MG PO (18:08)
[2022-09-09] MEDS: TIZANIDINE HCL 4 MG TABLET PO (18:08)
--- NOTE | 2022-09-09 18:54 | P.IMHP_ITS ---
Hospitalist- H&P: HPI History of Present Illness Time Seen by Provider: 16:00 Date Seen: 09/09/22 Chief complaint: vertigo Narrative: Anoop Myers is a 66 year old man was in his usual state of health until yesterday evening around dinner time. He got up to go eat dinner and suddenly felt the room spinning. Unable to get this sensation to stop and felt off balance because of it. Denies nausea at that time. No nausea since. No vomiting. Did eat his dinner yesterday. Not too interested in eating today however. Because of the persistent nature of this sense that the room is spinning and he is not able to have a good sense of balance he presents to the emergency department for further assessment. No recent fevers, rigors, diaphoresis. No other recent illnesses. No recent trauma or injury. No recent travel. Denies other neurologic deficits. Denies headache. Denies cough or dyspnea at rest. Denies diarrhea. Denies hematuria, dysuria, urgency, frequency. No skin infections. Satisfied with current bowel and bladder function. Denies chest heaviness, pressure, tightness, or pain. Denies syncope or near-syncope. Denies loss of consciousness of any sort. Review of Systems Status of ROS: Reports: 10 or more systems reviewed and unremarkable except as noted in History and below Narrative: No recent seizures. Has obstructive sleep apnea. Tells me he is not able to tolerate a CPAP machine. Thus he is not treating his obstructive sleep apnea. Tells me he takes his medications as prescribed. Currently taking levetiracetam 1500 mg at bedtime and 1000 mg every morning. Lives with and son. Designates his as his power of corporate associate attorney for health should that be required. Requests DNR DNI resuscitation status. [facility] Medical History (Updated 09/09/22 @ 19:22 by Francisco Nowak MD) Obstructive sleep apnea ?G47.33 - Obstructive sleep apnea (adult) (pediatric) (ICD-10) Diabetes 1.5, managed as type 1 ?E13.9 - Other specified diabetes mellitus without complications (ICD-10) Hypertension ?I10 - Essential (primary) hypertension (ICD-10) Seizure disorder ?G40.909 - Epilepsy, unspecified, not intractable, without status epilepticus (ICD-10) Right pontine stroke ?I63.50 - Cerebral infarction due to unspecified occlusion or stenosis of unspecified cerebral artery (ICD-10) Generalized weakness ?R53.1 - Weakness (ICD-10) Erectile dysfunction ?N52.9 - Male erectile dysfunction, unspecified (ICD-10) Gross hematuria ?R31.0 - Gross hematuria (ICD-10) Sebaceous cyst ?L72.3 - Sebaceous cyst (ICD-10) Obesity ?E66.9 - Obesity, unspecified (ICD-10) Malignant neoplasm of prostate ?C61 - Malignant neoplasm of prostate (ICD-10) Gastroesophageal reflux ?K21.9 - Gastro-esophageal reflux disease without esophagitis (ICD-10) Cerebrovascular accident (CVA) ?I63.9 - Cerebral infarction, unspecified (ICD-10) Atrial fibrillation ?I48.91 - Unspecified atrial fibrillation (ICD-10) Edema ?R60.9 - Edema, unspecified (ICD-10) Chronic back pain ?M54.9 - Dorsalgia, unspecified (ICD-10) ?G89.29 - Other chronic pain (ICD-10) Recurrent pancreatitis Tobacco use ?Z72.0 - Tobacco use (ICD-10) Mastoiditis ?H70.90 - Unspecified mastoiditis, unspecified ear (ICD-10) Surgical History History of tonsillectomy and adenoidectomy ?Z90.89 - Acquired absence of other organs (ICD-10) History of laminectomy ?Z98.890 - Other specified postprocedural states (ICD-10) History of esophageal surgery ?Z98.890 - Other specified postprocedural states (ICD-10) Social History Narrative: . Lives independently. Smoked 40-50 years, 1 pack every 3 days. Quit all alcohol almost a year ago per Dr. Logan's recommendation. Uses marajuana daily to help with sleep. DNR/DNI. What is your current living situation?: I presently have a place to live Problems where you live: mold Problems where you live details: Mold in the basement In the past 12 months, utilities in danger of being shut off: no In the past 12 mos, have been you worried that your food would run out before you had money to buy more?: sometimes true In the past 12 mos, the food you bought just didn't last and you didn't have money to buy more?: sometimes true Highest level of school completed/degree received: Associate degree: occupational, technical, vocational program Smoking Status: Former smoker Do you use any of these nicotine containing products: None Second hand tobacco smoke exposure: No How often do you have a drink containing alcohol: never How often do you have six or more drinks on one occasion: Never AUDIT-C Alcohol total score: 0 Non-prescribed substance use: marijuana (any form) Non-prescribed substance use details: daily Caffeine: Yes (6 cups daily) How often does anyone, including family, friends and others, physically hurt you : never How often does anyone, including family, friends and others, insult or talk down to you: never How often does anyone, including family, friends and others, threaten you with harm: never How often does anyone, including family, friends and others, scream or curse at you: never service: No Meds Home Medications and Allergies Home Medications Medication Instructions Recorded Confirmed Type insulin detemir U-100 100 unit/mL 22 unit subcut QAM 09/09/22 09/09/22 History (3 mL) subcutaneous pen (Levemir FlexPen) sennosides 8.6 mg-docusate sodium 2 tab-cap PO BID PRN constipation 09/09/22 09/09/22 History 50 mg tablet (Stool Softener-Laxative) Home Medication Comments: Apixaban 5 mg twice daily Furosemide 40 mg twice daily Levemir 22 units subcutaneous every morning Jardiance 25 mg once daily levetiracetam 1500 mg at bedtime and 1000 mg every morning Magnesium 400 mg daily Metformin 1000 mg twice daily Metoprolol tartrate 50 mg twice daily Omeprazole 20 mg once daily next tizanidine 2-4 mg as needed Allergies Allergy/AdvReac Type Severity Reaction Status Date / Time No Known Allergies Allergy Unknown Verified 09/09/22 08:39 Exam Narrative: Exam Narrative: I examine him in the emergency department as he is laying supine on the exam table. Appears comfortable and in no acute distress. Vision and hearing are grossly normal. Alert and oriented to self, place, time, situation. Friendly, articulate, cooperative. Mood and affect are congruent. External auditory canals are clear with normal tympanic membranes. Mallampati class 4 airway. Dry buccal mucosa. No icterus or conjunctival injection. Pupils equally round reactive to light and accommodation. Extraocular muscles are intact. No nystagmus at rest or inducible. Other cranial nerves 3-12 grossly normal. Neck is full. No JVD or hepatojugular reflux. No carotid bruits. No head and neck lymphadenopathy. Lungs clear to auscultation. Chest wall excursions are full. Heart tones with chaotic rhythm, normal S1-S2. No murmur, gallop, or rub. PMI is not laterally displaced. Abdomen is obese with active bowel sounds, soft, nontender. Extremities with edema bilaterally. Skin is intact. No tremor or asterixis. I do not test his gait at this time he Const: Vital Signs, click to edit/add: Vital Signs - 24 hr 09/09/22 08:39 09/09/22 08:52 09/09/22 09:00 Temperature 96.5 F L Pulse Rate 88 85 Pulse Rate [Pulse Oximeter] 79 Respiratory Rate 18 Blood Pressure Blood Pressure [Le ft Arm] Blood Pressure [Le ft Upper Arm] 138/83 Blood Pressure [Ri ght Arm] Pulse Oximetry 98 95 96 [facility] 09/09/22 09:02 09/09/22 09:15 09/09/22 09:30 Temperature Pulse Rate 88 80 87 Pulse Rate [Pulse Oximeter] Respiratory Rate Blood Pressure 144/95 H Blood Pressure [Le ft Arm] Blood Pressure [Le ft Upper Arm] Blood Pressure [Ri ght Arm] Pulse Oximetry 96 88 97 [facility] 09/09/22 09:31 09/09/22 09:42 09/09/22 09:45 Temperature Pulse Rate 83 85 Pulse Rate [Pulse Oximeter] Respiratory Rate Blood Pressure 165/102 H Blood Pressure [Le ft Arm] Blood Pressure [Le ft Upper Arm] Blood Pressure [Ri ght Arm] Pulse Oximetry 95 94 98 [facility] 09/09/22 10:00 09/09/22 10:02 09/09/22 10:03 Temperature Pulse Rate 85 85 85 Pulse Rate [Pulse Oximeter] Respiratory Rate Blood Pressure 179/88 H Blood Pressure [Le ft Arm] Blood Pressure [Le ft Upper Arm] Blood Pressure [Ri ght Arm] Pulse Oximetry 98 94 94 Oxygen Delivery Me thod 09/09/22 10:05 09/09/22 10:29 09/09/22 10:30 Temperature Pulse Rate 88 81 88 Pulse Rate [Pulse Oximeter] Respiratory Rate Blood Pressure 179/88 H Blood Pressure [Le ft Arm] Blood Pressure [Le ft Upper Arm] Blood Pressure [Ri ght Arm] Pulse Oximetry 96 93 97 Oxygen Delivery Me thod 09/09/22 10:32 09/09/22 10:50 09/09/22 11:00 Temperature Pulse Rate 86 91 81 Pulse Rate [Pulse Oximeter] Respiratory Rate Blood Pressure 141/73 H Blood Pressure [Le ft Arm] Blood Pressure [Le ft Upper Arm] Blood Pressure [Ri ght Arm] Pulse Oximetry 95 98 85 L Oxygen Delivery Ut thod 09/09/22 11:05 09/09/22 11:15 09/09/22 11:30 Temperature Pulse Rate 88 80 85 Pulse Rate [Pulse Oximeter] Respiratory Rate Blood Pressure Blood Pressure [Le ft Arm] Blood Pressure [Le ft Upper Arm] Blood Pressure [Ri ght Arm] Pulse Oximetry 92 95 98 Oxygen Delivery Ut thod 09/09/22 11:35 09/09/22 11:45 09/09/22 12:45 Temperature Pulse Rate 90 85 82 Pulse Rate [Pulse Oximeter] Respiratory Rate Blood Pressure Blood Pressure [Le ft Arm] Blood Pressure [Le ft Upper Arm] Blood Pressure [Ri ght Arm] Pulse Oximetry 97 95 96 Oxygen Delivery Ut thod 09/09/22 12:47 09/09/22 12:48 09/09/22 13:00 Temperature Pulse Rate 89 89 83 Pulse Rate [Pulse Oximeter] Respiratory Rate Blood Pressure 133/65 Blood Pressure [Le ft Arm] Blood Pressure [Le ft Upper Arm] Blood Pressure [Ri ght Arm] Pulse Oximetry 98 97 92 Oxygen Delivery Me thod 09/09/22 13:02 09/09/22 13:15 09/09/22 13:30 Temperature Pulse Rate 78 85 84 Pulse Rate [Pulse Oximeter] Respiratory Rate Blood Pressure 141/87 H Blood Pressure [Le ft Arm] Blood Pressure [Le ft Upper Arm] Blood Pressure [Ri ght Arm] Pulse Oximetry 93 90 93 Oxygen Delivery Me thod 09/09/22 13:32 09/09/22 13:45 09/09/22 14:00 Temperature Pulse Rate 89 87 77 Pulse Rate [Pulse Oximeter] Respiratory Rate Blood Pressure 155/93 H Blood Pressure [Le ft Arm] Blood Pressure [Le ft Upper Arm] Blood Pressure [Ri ght Arm] Pulse Oximetry 94 92 92 Oxygen Delivery Me thod 09/09/22 14:02 09/09/22 14:32 09/09/22 14:33 Temperature Pulse Rate 80 83 Pulse Rate [Pulse Oximeter] Respiratory Rate Blood Pressure 145/112 H 153/84 H Blood Pressure [Le ft Arm] Blood Pressure [Le ft Upper Arm] Blood Pressure [Ri ght Arm] Pulse Oximetry 93 94 Oxygen Delivery Me thod 09/09/22 14:45 09/09/22 15:00 09/09/22 15:02 Temperature Pulse Rate 90 93 85 Pulse Rate [Pulse Oximeter] Respiratory Rate Blood Pressure 126/85 Blood Pressure [Le ft Arm] Blood Pressure [Le ft Upper Arm] Blood Pressure [Ri ght Arm] Pulse Oximetry 98 97 96 Oxygen Delivery Me thod 09/09/22 15:15 09/09/22 15:46 Temperature 98.9 F Pulse Rate 93 Pulse Rate [Pulse Oximeter] 86 Respiratory Rate 18 Blood Pressure Blood Pressure [Le ft Arm] 135/114 H Blood Pressure [Le ft Upper Arm] Blood Pressure [Ri ght Arm] 143/110 H Pulse Oximetry 97 94 Oxygen Delivery Me thod Room Air Hospitalist - H&P: Result Labs Labs: Short CBC 09/09/22 Range/Units 11:42 WBC 4.00 L (4.50-11.00) K/uL Hgb 14.9 (13.5-17.5) gm/dL Hct 45.9 (37.0-53.0) % Plt Count 199 (140-440) K/uL BMP 09/09/22 11:42 Sodium 140 Potassium 3.9 Chloride 101 Carbon Dioxide 30 BUN 19 Creatinine 1.1 Glucose 138 H Calcium 9.1 Cardiac Enzymes 09/09/22 Range/Units 11:42 Troponin I < 0.01 L (0.01-0.04) ng/mL ECG Attestation: I personally reviewed and interpreted this ECG as follows: ECG interpretation date: 09/09/22 ECG interpretation time: 16:00 Prior ECG tracings: not available for review Interpretation: Atrial fibrillation Imaging CT scan - head: Attestation: I have reviewed the pertinent imaging results. Radiologist's impression: Impression: Stable remote ischemic and chronic small-vessel disease changes of the brain without new acute intracranial abnormality. If there remains persisting clinical concern follow-up with MRI may be useful for assessment of additional subtle acute lacunar changes. MRI - head: Attestation: I have reviewed the pertinent imaging results. Radiologist's impression: Impression: 1. Small focus of diffusion signal abnormality in the left superior frontal lobe without signal loss on ADC map suggestive of a subacute ischemic infarct. 2. Moderate supratentorial white matter changes are non-specific but most likely related to small vessel ischemic disease. Moderate cerebral volume loss. 3. Chronic lacunar infarct in the right carlito iveth. Chronic infarct in the left parafalcine frontal and parietal cortex. 4. Complete opacification of the right mastoid air cells. Assessment and Plan Assessment and plan (1) Vertigo: Problem comment: Most likely benign paroxysmal positional vertigo. Nonetheless, check levetiracetam level for possible toxicity effects. Symptom management. Physical therapy and occupational therapy to assist while he is being observed in the hospital. Status: Acute (2) Cerebrovascular accident (CVA): Problem comment: He had a stroke in 2008 with right hemiparesis which is much improved. Another stroke in 2015. New right pontine stroke, June 2022. 09/09/2022 found to have a subacute left superior frontal stroke - no change in management after consulting with stroke neurology. Statin therapy and apixaban and ongoing blood pressure control and blood sugar control for stroke prevention. Status: Chronic (3) Diabetes 1.5, managed as type 1: Status: Acute (4) Hypertension: Problem comment: Continue home meds. Status: Acute (5) Obstructive sleep apnea: Problem comment: He tells me this has been diagnosed as severe, but he is not able to wear CPAP because it does not work for him. He describes being in hospital setting trying to wear the CPAP at night but the alarms kept going off even while he was on the CPAP so he stopped wearing it. Status: Acute (6) Seizure disorder: Problem comment: 04/2018, treated with Keppra. 09/09/2022, check levetiracetam level. Status: Acute Plan 1. Reviewed with patient. 2. Recommended admission to observation per recommendation from stroke pathologist. 3. Telemetry. Neuro checks. 4. Will check a levetiracetam level to make sure that he does not have toxic levels that might be contributing to the vertigo. 5. Treat the vertical symptomatically for now. Will have PT and OT assess and assist. 6. Continue with other supportive efforts. For now will also add sliding scale insulin. 7. Patient agreeable to above stated plans or recommendations.
[2022-09-09 20:14] LABS: SARS PCR* Negative SARS-CoV-2 (Negative)
[2022-09-09] MEDS: levETIRAcetam 500 MG TABLET 1500 MG PO (21:02)
[2022-09-09] MEDS: MELATONIN 3 MG TABLET 6 MG PO (21:02)
[2022-09-09] MEDS: FUROSEMIDE 40 MG TABLET PO (21:02)
[2022-09-09] MEDS: METOPROLOL TARTRATE 50 MG TABLET PO (21:02)
[2022-09-09] MEDS: APIXABAN 5 MG TABLET PO (21:02)
[2022-09-09] MEDS: SODIUM CHLORIDE 0.9 % (FLUSH) 10 ML SYRINGE 5 ML IVF (21:03)
--- NOTE | 2022-09-09 23:19 | PC.NURSE ---
Shift note: Pt friendly and cooperative with cares. A/o x3, during conversation his responses are mildly delayed. Answers are appropriate. States he is not dizzy at this time but has had intermittent bouts of acute and severe dizziness since yesterday. Pt was able to dangle at the edge of the bed, stand and move to his recliner for supper with assist x2, walker, and GB. Pt denied acute dizziness and transitions were slow. Hypertensive on admission, but BP's have since improved and home meds given at HS. 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 BG= 113 and 257, SS novolog given at HS. Chronic low back pain rated 5-7/10, PRN Tylenol and Zanaflex given as well as frequent repositioning.
[2022-09-10 00:04] VITALS: PULSE 76
[2022-09-10] MEDS: ACETAMINOPHEN 325 MG TABLET 650 MG PO (02:33)
[2022-09-10 03:00] VITALS: BP 123/86; PULSE 95; RESP 20; TEMP 36.7; O2SAT 95
[2022-09-10] MEDS: MECLIZINE HCL 25 MG TABLET PO (05:26)
[2022-09-10] MEDS: OMEPRAZOLE 20 MG CAPSULE DR PO (06:31)
--- NOTE | 2022-09-10 06:35 | PC.NURSE ---
End of shift: Pt A&O, pleasant and cooperative. VSS w/ sats >90% on RA.?At 0500 attempted to get pt up the commode w/ A2, but when sitting on the side of the bed pt got dizzy and needed to lay back down. See eMAR for intervention. Once laying back down pt states symptoms relieved. Neuro?s q4h. Rating pain in lower back /10, PRN Tylenol given. Upon reassessment, pt was sleeping. Pt was able to turn and repo self overnight. Using urinal in bed to void.
[2022-09-10 07:00] VITALS: BP 139/85; PULSE 80; PULSE 86; RESP 20; TEMP 36.7; O2SAT 99
[2022-09-10] MEDS: METFORMIN 1,000 MG TABLET 1000 MG PO (08:42)
[2022-09-10] MEDS: APIXABAN 5 MG TABLET PO (08:42)
[2022-09-10] MEDS: EMPAGLIFLOZIN 10 MG TABLET 25 MG PO (08:43)
[2022-09-10] MEDS: FUROSEMIDE 40 MG TABLET PO (08:45)
[2022-09-10] MEDS: levETIRAcetam 500 MG TABLET 1000 MG PO (08:47)
[2022-09-10] MEDS: METOPROLOL TARTRATE 50 MG TABLET PO (08:48)
[2022-09-10] MEDS: MAGNESIUM OXIDE 400 MG TABLET PO (08:48)
[2022-09-10] MEDS: SODIUM CHLORIDE 0.9 % (FLUSH) 10 ML SYRINGE 5 ML IVF (08:48)
--- NOTE | 2022-09-10 09:58 | P.IMPN_ITS ---
Exam Const: Vital Signs, click to edit/add: Vital Signs - 24 hr 09/09/22 10:00 09/09/22 10:02 09/09/22 10:03 Temperature Pulse Rate 85 85 85 Pulse Rate [Apical ] Pulse Rate [Pulse Oximeter] Respiratory Rate Blood Pressure 179/88 H Blood Pressure [Le ft Arm] Blood Pressure [Ri ght Arm] Pulse Oximetry 98 94 94 Oxygen Delivery Vt thod 09/09/22 10:05 09/09/22 10:29 09/09/22 10:30 Temperature Pulse Rate 88 81 88 Pulse Rate [Apical ] Pulse Rate [Pulse Oximeter] Respiratory Rate Blood Pressure 179/88 H Blood Pressure [Le ft Arm] Blood Pressure [Ri ght Arm] Pulse Oximetry 96 93 97 [facility] 10:32 09/09/22 10:50 09/09/22 11:00 Temperature Pulse Rate 86 91 81 Pulse Rate [Apical ] Pulse Rate [Pulse Oximeter] Respiratory Rate Blood Pressure 141/73 H Blood Pressure [Le ft Arm] Blood Pressure [Ri ght Arm] Pulse Oximetry 95 98 85 L Oxygen Delivery Vt thod 09/09/22 11:05 09/09/22 11:15 09/09/22 11:30 Temperature Pulse Rate 88 80 85 Pulse Rate [Apical ] Pulse Rate [Pulse Oximeter] Respiratory Rate Blood Pressure Blood Pressure [Le ft Arm] Blood Pressure [Ri ght Arm] Pulse Oximetry 92 95 98 Oxygen Delivery Vt thod 09/09/22 11:35 09/09/22 11:45 09/09/22 12:45 Temperature Pulse Rate 90 85 82 Pulse Rate [Apical ] Pulse Rate [Pulse Oximeter] Respiratory Rate Blood Pressure Blood Pressure [Le ft Arm] Blood Pressure [Ri ght Arm] Pulse Oximetry 97 95 96 Oxygen Delivery Vt thod 09/09/22 12:47 09/09/22 12:48 09/09/22 13:00 Temperature Pulse Rate 89 89 83 Pulse Rate [Apical ] Pulse Rate [Pulse Oximeter] Respiratory Rate Blood Pressure 133/65 Blood Pressure [Le ft Arm] Blood Pressure [Ri ght Arm] Pulse Oximetry 98 97 92 Oxygen Delivery Vt thod 09/09/22 13:02 09/09/22 13:15 09/09/22 13:30 Temperature Pulse Rate 78 85 84 Pulse Rate [Apical ] Pulse Rate [Pulse Oximeter] Respiratory Rate Blood Pressure 141/87 H Blood Pressure [Le ft Arm] Blood Pressure [Ri ght Arm] Pulse Oximetry 93 90 93 [facility] 09/[facility] 13:32 09/09/22 13:45 09/09/22 14:00 Temperature Pulse Rate 89 87 77 Pulse Rate [Apical ] Pulse Rate [Pulse Oximeter] Respiratory Rate Blood Pressure 155/93 H Blood Pressure [Le ft Arm] Blood Pressure [Ri ght Arm] Pulse Oximetry 94 92 92 [facility] 09/[facility]/22 14:02 09/09/22 14:32 09/09/22 14:33 Temperature Pulse Rate 80 83 Pulse Rate [Apical ] Pulse Rate [Pulse Oximeter] Respiratory Rate Blood Pressure 145/112 H 153/84 H Blood Pressure [Le ft Arm] Blood Pressure [Ri ght Arm] Pulse Oximetry 93 94 [facility] 09/[facility]/22 14:45 09/09/22 15:00 09/09/22 15:02 Temperature Pulse Rate 90 93 85 Pulse Rate [Apical ] Pulse Rate [Pulse Oximeter] Respiratory Rate Blood Pressure 126/85 Blood Pressure [Le ft Arm] Blood Pressure [Ri ght Arm] Pulse Oximetry 98 97 96 [facility] 09/09/22 15:15 09/09/22 15:46 09/09/22 19:00 Temperature 98.9 F 98.1 F Pulse Rate 93 Pulse Rate [Apical ] Pulse Rate [Pulse Oximeter] 86 99 Respiratory Rate 18 18 Blood Pressure Blood Pressure [Le ft Arm] 135/114 H Blood Pressure [Ri ght Arm] 143/110 H 134/79 Pulse Oximetry 97 94 94 Oxygen Delivery [facility] Room Air Room Air 09/09/22 19:07 09/09/22 21:12 09/09/22 23:33 Temperature 98.1 F Pulse Rate 97 Pulse Rate [Apical ] Pulse Rate [Pulse Oximeter] 91 Respiratory Rate 18 20 Blood Pressure Blood Pressure [Le ft Arm] 143/85 H Blood Pressure [Ri ght Arm] Pulse Oximetry 94 95 [facility] Air 09/09/22 23:48 09/09/22 23:50 09/10/22 00:04 Temperature Pulse Rate 76 Pulse Rate [Apical ] 81 Pulse Rate [Pulse Oximeter] Respiratory Rate 20 Blood Pressure Blood Pressure [Le ft Arm] Blood Pressure [Ri ght Arm] Pulse Oximetry 95 Oxygen Delivery Me thod Room Air 09/10/22 03:00 09/10/22 07:00 09/10/22 07:00 Temperature 98.1 F Pulse Rate Pulse Rate [Apical ] 80 Pulse Rate [Pulse Oximeter] 95 Respiratory Rate 20 Blood Pressure Blood Pressure [Le ft Arm] Blood Pressure [Ri ght Arm] 123/86 Pulse Oximetry 95 99 Oxygen Delivery Me thod Room Air Room Air 09/10/22 07:00 Temperature 98.1 F Pulse Rate Pulse Rate [Apical ] Pulse Rate [Pulse Oximeter] 80 Respiratory Rate 20 Blood Pressure Blood Pressure [Le ft Arm] 139/85 Blood Pressure [Ri ght Arm] Pulse Oximetry 99 Oxygen Delivery Me thod Room Air Labs Labs: Laboratory Results - last 24 hr 09/09/22 09/09/22 09/09/22 11:42 16:44 18:58 WBC 4.00 L RBC 5.20 Hgb 14.9 Hct 45.9 MCV 88 MCH 29 MCHC 33 RDW Coeff of Ramona 13.4 Plt Count 199 Neut % (Auto) 67.1 Lymph % (Auto) 22.8 Otero % (Auto) 8.0 Eos % (Auto) 1.5 Baso % (Auto) 0.3 Neut # (Auto) 2.70 Lymph # (Auto) 0.90 Otero # (Auto) 0.30 Eos # (Auto) 0.10 Baso # (Auto) 0.00 Abs Immat Gran (auto) 0.00 Imm/Tot Granulo (auto) 0.3 INR 1.12 H APTT 30 Sodium 140 Potassium 3.9 Chloride 101 Carbon Dioxide 30 BUN 19 Creatinine 1.1 Estimated Creat Clear 73.48 Estimated GFR 75 Glucose 138 H Calcium 9.1 Troponin I < 0.01 L C-Reactive Protein 0.6 NT-Pro-B Natriuret Pep 1510 SARS-CoV-2 (PCR) Negative SARS-CoV-2 Lab Acknowledgement Test Added Imaging MRI - head: Radiologist's impression: Indication: vertigo Technique: Noncontrast sagittal T1 weighted, axial T2 fast spin echo, FLAIR, and diffusion weighted images of the head. Comparison: CT 09/09/2022, MRI 06/24/2022 Findings: Small focus of diffusion signal abnormality in the left superior frontal lobe without signal loss on ADC map. Moderate scattered patchy foci of increased T2 signal within the periventricular and subcortical white matter of both cerebral hemispheres. Chronic lacunar infarct in the right carlito iveth. Chronic infarct in the left parafalcine frontal and parietal cortex. Moderate cerebral parenchymal volume loss. The ventricles, sulci and gyri are of normal size, shape and contour for age and degree of atrophy. No regions of restricted diffusion. Midline structures are centrally located. No convincing evidence of suspicious intra- or extra-axial fluid collections. Complete opacification of the right mastoid air cells. Fluid in the right petrous apex. AP and large min to have the right globe likely due to staphyloma. Impression: 1. Small focus of diffusion signal abnormality in the left superior frontal lobe without signal loss on ADC map suggestive of a subacute ischemic infarct. 2. Moderate supratentorial white matter changes are non-specific but most likely related to small vessel ischemic disease. Moderate cerebral volume loss. 3. Chronic lacunar infarct in the right carlito iveth. Chronic infarct in the left parafalcine frontal and parietal cortex. 4. Complete opacification of the right mastoid air cells.
[2022-09-10 11:00] VITALS: BP 121/64; PULSE 97; RESP 18; TEMP 36.8; O2SAT 97
--- NOTE | 2022-09-10 11:58 | P.DS_ITS ---
DS: Providers Provider Date Seen: 09/10/22 Date of admission: 09/09/22 15:32 Primary care physician: Isaac Logan MD Admitting Clinician: Francisco Nowak MD Attending Physician on discharge: Mika Herrera MD Date of Discharge: 09/10/22 DS: Diagnosis Discharge Diagnosis (1) Vertigo: Status: Acute Problem details: Most likely benign paroxysmal positional vertigo. Nonetheless, check levetiracetam level for possible toxicity effects. Symptom management. Therapy performed otolith repositioning maneuvers with good affect at resolving symptoms (2) Cerebrovascular accident (CVA): Status: Chronic Problem details: He had a stroke in 2008 with right hemiparesis which is much improved. Another stroke in 2015. New right pontine stroke, June 2022. 09/09/2022 found to have a subacute left superior frontal stroke - no change in management after consulting with stroke neurology. MRI done yesterday showed subacute frontal stroke which was not thought to cause vertigo. Statin therapy and apixaban and ongoing blood pressure control and blood sugar control for stroke prevention. (3) Right pontine stroke: Status: Acute Problem details: 06/2012, with weakness and balance problems (4) Diabetes 1.5, managed as type 1: Status: Acute (5) Obstructive sleep apnea: Status: Acute Problem details: He tells me this has been diagnosed as severe, but he is not able to wear CPAP because it does not work for him. He describes being in hospital setting trying to wear the CPAP at night but the alarms kept going off even while he was on the CPAP so he stopped wearing it. (6) Hypertension: Status: Acute Problem details: Continue home meds. (7) Seizure disorder: Status: Acute Problem details: 04/2018, treated with Keppra. 09/09/2022, check levetiracetam level. DS: Summary Hospital Course Hospital Course: 66-year-old male admitted through the emergency department with fairly severe vertigo for 2 days prior to admission. Symptoms were bad enough that he was having trouble ambulating. Evaluation in the emergency room did not show evidence of acute stroke. He had head CT and MRI of the head showing old strokes and chronic small-vessel ischemic changes. The MRI showed a subacute frontal stroke. This was not thought to be likely the cause of vertigo however. His symptoms overnight remains stable. Physical therapy did otolith repositioning maneuvers with good affect. Other chronic medical problems appear to be stable at this time. Status at Discharge Functional status at discharge: uses cane/walker Overall status at discharge: patient is progressing back to baseline Time Spent with Patient Time attestation: Total time spent providing and/or coordinating discharge services: Time spent: Greater than 30 minutes Exam Narrative: Exam Narrative: He is alert and in no distress. Oriented to his circumstances. Eyes are normal. Extraocular movements are full. Visual hernandez are intact. There is no nystagmus. Oropharynx with small airway. Tongue is midline. No facial asymmetry. Intact sensation on both sides the face. Roughly symmetric hearing in both ears to soft touch. Neck is supple without mass or adenopathy. Respirations are clear to auscultation. Cardiovascular: S1, S2, regular rate and rhythm. Abdomen is soft without tenderness or mass. Strength testing is upper extremities shows 5/5 strength on the left shoulder flexion and extension, elbow flexion extension wrist flexion extension and finger extension. On the right he has very mild weakness compared to the right due to his prior stroke. Lower extremities are proximally symmetric in strength. [id number] and heel-rodríguez are relatively normal as well. No pronator drift. Otolith repositioning maneuvers are performed he does get nystagmus when he lies supine and rolls toward the right side. This extinguishes after about 10 seconds to 15 seconds of lying still. Const: Vital Signs, click to edit/add: Vital Signs - 24 hr 09/09/22 12:45 09/09/22 12:47 09/09/22 12:48 Temperature Pulse Rate 82 89 89 Pulse Rate [Apical ] Pulse Rate [Pulse Oximeter] Respiratory Rate Blood Pressure 133/65 Blood Pressure [Le ft Arm] Blood Pressure [Ri ght Arm] Pulse Oximetry 96 98 97 Oxygen Delivery Ia thod 09/09/22 13:00 09/09/22 13:02 09/09/22 13:15 Temperature Pulse Rate 83 78 85 Pulse Rate [Apical ] Pulse Rate [Pulse Oximeter] Respiratory Rate Blood Pressure 141/87 H Blood Pressure [Le ft Arm] Blood Pressure [Ri ght Arm] Pulse Oximetry 92 93 90 Oxygen Delivery Me thod 09/09/22 13:30 09/09/22 13:32 09/09/22 13:45 Temperature Pulse Rate 84 89 87 Pulse Rate [Apical ] Pulse Rate [Pulse Oximeter] Respiratory Rate Blood Pressure 155/93 H Blood Pressure [Le ft Arm] Blood Pressure [Ri ght Arm] Pulse Oximetry 93 94 [facility] 14:00 09/09/22 14:02 09/09/22 14:32 Temperature Pulse Rate 77 80 Pulse Rate [Apical ] Pulse Rate [Pulse Oximeter] Respiratory Rate Blood Pressure 145/112 H 153/84 H Blood Pressure [Le ft Arm] Blood Pressure [Ri ght Arm] Pulse Oximetry 92 93 [facility] 09/[facility]22 14:33 09/09/22 14:45 09/09/22 15:00 Temperature Pulse Rate 83 90 93 Pulse Rate [Apical ] Pulse Rate [Pulse Oximeter] Respiratory Rate Blood Pressure Blood Pressure [Le ft Arm] Blood Pressure [Ri ght Arm] Pulse Oximetry 94 98 97 [facility] 09/09/22 15:02 09/09/22 15:15 09/09/22 15:46 Temperature 98.9 F Pulse Rate 85 93 Pulse Rate [Apical ] Pulse Rate [Pulse Oximeter] 86 Respiratory Rate 18 Blood Pressure 126/85 Blood Pressure [Le ft Arm] 135/114 H Blood Pressure [Ri ght Arm] 143/110 H Pulse Oximetry 96 97 94 Oxygen Delivery [facility] Room Air 09/09/22 19:00 09/09/22 19:07 09/09/22 21:12 Temperature 98.1 F Pulse Rate 97 Pulse Rate [Apical ] Pulse Rate [Pulse Oximeter] 99 Respiratory Rate 18 18 Blood Pressure Blood Pressure [Le ft Arm] Blood Pressure [Ri ght Arm] 134/79 Pulse Oximetry 94 94 Oxygen Delivery [facility] Room Air Room Air 09/09/22 23:33 09/09/22 23:48 09/09/22 23:50 Temperature 98.1 F Pulse Rate Pulse Rate [Apical ] 81 Pulse Rate [Pulse Oximeter] 91 Respiratory Rate 20 20 Blood Pressure Blood Pressure [Le ft Arm] 143/85 H Blood Pressure [Ri ght Arm] Pulse Oximetry 95 95 [facility] 09/10/22 00:04 09/10/22 03:00 09/10/22 07:00 Temperature 98.1 F Pulse Rate 76 Pulse Rate [Apical ] 80 Pulse Rate [Pulse Oximeter] 95 Respiratory Rate 20 Blood Pressure Blood Pressure [Le ft Arm] Blood Pressure [Ri ght Arm] 123/86 Pulse Oximetry 95 Oxygen Delivery Me thod Room Air 09/10/22 07:00 09/10/22 07:00 09/10/22 07:00 Temperature 98.1 F Pulse Rate 86 Pulse Rate [Apical ] Pulse Rate [Pulse Oximeter] 80 Respiratory Rate 20 Blood Pressure Blood Pressure [Le ft Arm] 139/85 Blood Pressure [Ri ght Arm] Pulse Oximetry 99 99 Oxygen Delivery Me thod Room Air Room Air 09/10/22 11:00 Temperature 98.2 F Pulse Rate Pulse Rate [Apical ] Pulse Rate [Pulse Oximeter] 97 Respiratory Rate 18 Blood Pressure Blood Pressure [Le ft Arm] 121/64 Blood Pressure [Ri ght Arm] Pulse Oximetry 97 Oxygen Delivery Me thod Room Air Documenting provider has reviewed patient's vital signs: yes DS: Data Data Completed and Pending Labs on day of discharge: Labs from last 24 hours 09/09/22 09/09/22 09/09/22 18:58 16:44 11:42 WBC 4.00 L RBC 5.20 Hgb 14.9 Hct 45.9 MCV 88 MCH 29 MCHC 33 RDW Coeff of Ramona 13.4 Plt Count 199 Neut % (Auto) 67.1 Lymph % (Auto) 22.8 Nicholas % (Auto) 8.0 Eos % (Auto) 1.5 Baso % (Auto) 0.3 Neut # (Auto) 2.70 Lymph # (Auto) 0.90 Nicholas # (Auto) 0.30 Eos # (Auto) 0.10 Baso # (Auto) 0.00 Abs Immat Gran (auto) 0.00 Imm/Tot Granulo (auto) 0.3 INR 1.12 H APTT 30 Sodium 140 Potassium 3.9 Chloride 101 Carbon Dioxide 30 BUN 19 Creatinine 1.1 Estimated Creat Clear 73.48 Estimated GFR 75 Glucose 138 H Calcium 9.1 Troponin I < 0.01 L C-Reactive Protein 0.6 NT-Pro-B Natriuret Pep 1510 Levetiracetam Pending SARS-CoV-2 (PCR) Negative SARS-CoV-2 Lab Acknowledgement Test Added Imaging MRI - head: My impression: Indication: vertigo Technique: Noncontrast sagittal T1 weighted, axial T2 fast spin echo, FLAIR, and diffusion weighted images of the head. Comparison: CT 09/09/2022, MRI 06/24/2022 Findings: Small focus of diffusion signal abnormality in the left superior frontal lobe without signal loss on ADC map. Moderate scattered patchy foci of increased T2 signal within the periventricular and subcortical white matter of both cerebral hemispheres. Chronic lacunar infarct in the right carlito iveth. Chronic infarct in the left parafalcine frontal and parietal cortex. Moderate cerebral parenchymal volume loss. The ventricles, sulci and gyri are of normal size, shape and contour for age and degree of atrophy. No regions of restricted diffusion. Midline structures are centrally located. No convincing evidence of suspicious intra- or extra-axial fluid collections. Complete opacification of the right mastoid air cells. Fluid in the right petrous apex. AP and large min to have the right globe likely due to staphyloma. Impression: 1. Small focus of diffusion signal abnormality in the left superior frontal lobe without signal loss on ADC map suggestive of a subacute ischemic infarct. 2. Moderate supratentorial white matter changes are non-specific but most likely related to small vessel ischemic disease. Moderate cerebral volume loss. 3. Chronic lacunar infarct in the right carlito iveth. Chronic infarct in the left parafalcine frontal and parietal cortex. 4. Complete opacification of the right mastoid air cells. Discharge Plan Discharge Disposition: Home, Self-Care Date of Admission: 09/09/22 15:32 Attending Provider on Discharge: Antonio Herrera Primary Care Provider: Isaac Logan Condition: Improved Anticipated Discharge Date/Time: 09/10/22 15:56 Discharge Medications: Continued furosemide 40 mg tablet 40 mg PO BID Qty: 180 3RF levetiracetam 1,000 mg tablet See Rx Instructions .ROUTE .COMPLEX Qty: 225 3RF Dose Instruction: TAKE 1 TABLET BY MOUTH IN THE MORNING AND 1.5 TABLETS AT BEDTIME Rx Instructions: TAKE 1 TABLET BY MOUTH IN THE MORNING AND 1.5 TABLETS AT BEDTIME metformin 1,000 mg tablet 1,000 mg PO BIDWMEAL Qty: 180 3RF metoprolol tartrate 50 mg tablet 50 mg PO BID Qty: 180 3RF Eliquis 5 mg tablet 5 mg PO BID Qty: 180 4RF Jardiance 25 mg tablet 25 mg PO QAM Qty: 90 3RF magnesium oxide 400 mg (241.3 mg magnesium) Tablet 400 mg PO DAILY Qty: 30 0RF omeprazole 20 mg Capsule,Delayed Release(Dr/Ec) 20 mg PO DAILY Qty: 30 0RF sennosides-docusate sodium [Stool Softener-Laxative] 8.6-50 mg Tablet 2 tab-cap PO BID PRN (Reason: constipation) Levemir FlexPen 100 unit/mL (3 mL) Insulin Pen 22 unit subcut QAM tizanidine 4 mg tablet 2 - 4 mg PO Q8H PRN (Reason: for muscle spasm) Qty: 36 2RF tadalafil 20 mg tablet 20 mg PO Q OTHER DAY PRN (Reason: sexual activity) Qty: 6 5RF Discharge Orders: Discharge Order (Routine); Ordered 09/10/22 Ordered By: Antonio Herrera Patient Education: Vertigo (DC), Stroke (DC) Additional Instructions: resume of cares, PT and OT, Nursing and Home health Aid Activity Level: Use Walker Discharge Diet: Heart Healthy (2 gm sodium, low fat) Follow Up Appointments: Isaac Logan MD [Primary Care Provider] - 09/16/22 12:45 pm ([facility] for follow-up.) Forms: [employer] Info Instructions
--- NOTE | 2022-09-10 13:12 | PC.SOCIAL ---
Pt. will discharge home today and will resume home care through [facility]. 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 Pt. recently discharged from the [facility] 2 weeks ago following a rehab stay and is now home with his spouse and 9 year old with home care.
--- NOTE | 2022-09-10 13:20 | NUTR.NU ---
RDN with nutrition screen for 2 gram sodium and diabetic diets. ?Patient declined verbal education for designated caregiver and will pass along the handout provided. Nutrition education on low sodium diet for HTN. Verbal and written information provided. Recommend limiting sodium to 2,000 mg per day.? Discussed foods recommended and to avoid.? Handouts provided from [facility] on hypertension nutrition therapy, sodium content of foods, and sodium-free flavoring tips. Patient verbalized understanding.?Diabetic diet education provided. Discussed basics of carbohydrate counting including sources of carbohydrates, serving sizes, and label reading. Discussed using the plate method for carbohydrate-controlled, balanced meals that include ? plate non-starchy vegetables, ? plate protein, and 3-4 servings of carbohydrates per meal (fruit, whole grains, legumes, milk, yogurt) and 1-2 per snack. Handouts provided to support discussion. Patient has had education in the past on 06.23.22 for the diabetic diet. RDN's contact information was provided and patient was encouraged to call with questions.?
--- NOTE | 2022-09-10 15:28 | PC.NURSE ---
Patient was ambulating with standby assist. Reporting some dizziness when changing positions. Sitting or waiting to change position for a few minutes was effective. Pt ambulated slowly, but was steady. He denied pain all shift. VSS. Pt was discharged at 3:20pm. IV to right arm removed. Pt was wheeled out. Left with and son. Discharge papers reviewed with pt and . Reeducated on using walker; if having dizziness to wait until subsides to move/stand/ambulate; keeping head up and looking ahead when standing up; finding a focal point.
[2022-09-11 13:54] LABS: Keppra (Levetiracetam) 24 ug/mL (10-40)
== END 2022-09-10 15:20 | disposition home or self-care (01) ==
LOC: ED 09:16 → MEDSURG 15:32
PROVIDERS: Admitting Provider Internal Medicine; Emergency Provider Family Medicine; PCP Family Medicine; Visit Provider Internal Medicine
DX: R42 Dizziness and giddiness (principal); I69.851 Hemiplegia and hemiparesis following other cerebrovascular disease affecting right dominant side; Z79.02 Long term (current) use of antithrombotics/antiplatelets; E13.9 Other specified diabetes mellitus without complications; Z79.4 Long term (current) use of insulin; Z79.84 Long term (current) use of oral hypoglycemic drugs; Z79.85 Long-term (current) use of injectable non-insulin antidiabetic drugs; I10 Essential (primary) hypertension; G47.33 Obstructive sleep apnea (adult) (pediatric); G40.909 Epilepsy, unspecified, not intractable, without status epilepticus; I48.91 Unspecified atrial fibrillation
CPT/HCPCS: 36415; 70450; 70551; 80048; 80177; 82962; 83880; 84484; 85025; 85610; 85730; 86140; 87081; 87635; 93005; 94761; 96374; 97112; 97116; 97161; 97165; 97535; 99285; G0378; A9270; J2060; J7120

== ENCOUNTER 2022-12-09 12:59 | Outpatient (CLI) | payer OTHER, SELFPAY ==
--- OUTSIDE RECORDS SUMMARY | 2022-12-12 16:40 | XMS_ITS | Continuity of Care Document ---
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 tel:[phone] Family History Family Member Type Diagnosis Age At Onset No Information Payers Payer name Insurance type Covered constitution party ID Authoriza tion(s) [facility] [place] [employer] [id number] Social History Type Description Quantity Date Captured Comments Sex Male Smoking Status No Information Chief Complaint And Reason For Visit No Information Reason For Referral Reason For Referral No Information History Of Present Illness Encounter Date Complaint History Of Prese nt Illness No Information Functional Status Date Functional Assessmen t No Information Instructions Date Instruction Additional Infor mation No Information Assessments Type Assessment Date No Information Patient Care Teams Name Effective Dates (start - stop) Status Members No Information
== END 2022-12-09 13:00 | disposition home or self-care (01) ==
LOC: AMB 12-12 16:38
PROVIDERS: PCP Family Medicine; Visit Provider Student in an Organized Health Care Education/Training Program
DX: M54.9 Dorsalgia, unspecified (principal)
CPT/HCPCS: A0425; A0427

== ENCOUNTER 2022-12-09 13:30 | Emergency (ER) | payer OTHER, SELFPAY ==
[2022-12-09 13:40] VITALS: BP 149/115; PULSE 73; RESP 20; TEMP 36.2; O2SAT 98; BMI 48.8
--- NOTE | 2022-12-09 14:07 | ED_ITS ---
HPI - Back Pain/Injury General Date Seen: 12/09/22 Chief Complaint: Back Injury/Pain Stated Complaint: Lower back pain Time Seen by Provider: 12/09/22 13:31 Source: patient Mode of arrival: EMS Limitations: no limitations History of Present Illness HPI Narrative: Patient is a 66-year-old male history of diabetes, hypertension, multiple strokes, AFib, chronic back pain presenting to the emergency department for low back pain. He states he has had back surgery back in 1995 and has been continued to have back issues since then. He was receiving Dilaudid through a pain doctor but then that provider cut back and patient's could no longer cm. He was also previously was seen epidural shots last 1 was 2 years ago. States his back is 7 a dull ache the past few years but it has been for the most part tolerable any only takes the occasional muscle relaxer. He noticed last night the back pain is getting worse and then today after he walked to the bathroom and sat on the toilet the back pain is worse is unable to stand back up. EMS was called. They states he is fully alert and oriented with normal vital signs for them. Patient states he has some chronic right leg numbness from his strokes but denies weakness. Denies saddle anesthesia, loss of bowel or bladder control, urinary retention, IV drug use, fevers or chills. No other concerns at this time. Related Data Home Medications Medication Instructions Recorded Confirmed insulin detemir U-100 100 unit/mL 22 unit subcut QAM 09/09/22 09/09/22 (3 mL) subcutaneous pen (Levemir FlexPen) sennosides 8.6 mg-docusate sodium 2 tab-cap PO BID PRN constipation 09/09/22 09/09/22 50 mg tablet (Stool Softener-Laxative) Previous Rx's Medication Instructions Recorded metoprolol tartrate 50 mg tablet 50 mg PO BID #180 tabs 01/23/22 tizanidine 4 mg tablet 2 - 4 mg (0.5 - 1 x 4 mg) PO Q8H 04/17/22 PRN for muscle spasm #36 tabs tadalafil 20 mg tablet 20 mg PO Q OTHER DAY PRN sexual 06/05/22 activity #6 tabs apixaban 5 mg tablet (Eliquis) 5 mg PO BID #180 tabs 08/31/22 empagliflozin 25 mg tablet 25 mg PO QAM #90 tabs 08/31/22 (Jardiance) meclizine 25 mg tablet 25 mg PO .Q6 PRN dizziness #30 tabs 09/11/22 clotrimazole 1 % topical cream 1 applic topical BID #30 grams 09/16/22 fluconazole 150 mg tablet See Rx Instructions PO .ud #3 tabs 09/16/22 levetiracetam 1,000 mg tablet See Rx Instructions .Route 09/29/22 .COMPLEX #225 tabs furosemide 40 mg tablet 40 mg PO BID #180 tabs 10/06/22 metformin 1,000 mg tablet 1,000 mg PO BIDWMEAL #180 tabs 10/06/22 magnesium oxide 400 mg (241.3 mg 400 mg PO DAILY #90 tabs 11/06/22 magnesium) tablet omeprazole 20 mg capsule,delayed 20 mg PO DAILY #90 caps 11/06/22 release oxycodone 5 mg tablet 5 mg PO Q6H PRN pain #12 tabs 12/09/22 Allergies Allergy/AdvReac Type Severity Reaction Status Date / Time No Known Allergies Allergy Unknown Verified 09/09/22 08:39 Review of Systems Status of ROS: Reports: 10 or more systems reviewed and unremarkable except as noted in History and below [facility] Medical History Generalized weakness ?R53.1 - Weakness (ICD-10) Erectile dysfunction ?N52.9 - Male erectile dysfunction, unspecified (ICD-10) Gross hematuria ?R31.0 - Gross hematuria (ICD-10) Sebaceous cyst ?L72.3 - Sebaceous cyst (ICD-10) Gastroesophageal reflux ?K21.9 - Gastro-esophageal reflux disease without esophagitis (ICD-10) Edema ?R60.9 - Edema, unspecified (ICD-10) Recurrent pancreatitis Tobacco use ?Z72.0 - Tobacco use (ICD-10) Mastoiditis ?H70.90 - Unspecified mastoiditis, unspecified ear (ICD-10) Surgical History History of tonsillectomy and adenoidectomy ?Z90.89 - Acquired absence of other organs (ICD-10) History of laminectomy ?Z98.890 - Other specified postprocedural states (ICD-10) History of esophageal surgery ?Z98.890 - Other specified postprocedural states (ICD-10) Social History Narrative: . Lives independently. Smoked 40-50 years, 1 pack every 3 days. Quit all alcohol almost a year ago per Dr. Logan's recommendation. Uses marajuana daily to help with sleep. DNR/DNI. What is your current living situation?: I presently have a place to live Problems where you live: mold Problems where you live details: Mold in the basement In the past 12 months, utilities in danger of being shut off: no In past 12 months, lack of transportation kept you from medical appts, meetings, work, or getting things needed for daily living: no In the past 12 mos, have been you worried that your food would run out before you had money to buy more?: sometimes true In the past 12 mos, the food you bought just didn't last and you didn't have money to buy more?: sometimes true Highest level of school completed/degree received: Associate degree: occupational, technical, vocational program Smoking Status: Former smoker Do you use any of these nicotine containing products: None Second hand tobacco smoke exposure: No How often do you have a drink containing alcohol: never How often do you have six or more drinks on one occasion: Never AUDIT-C Alcohol total score: 0 Non-prescribed substance use: marijuana (any form) Non-prescribed substance use details: daily Caffeine: Yes (6 cups daily) How often does anyone, including family, friends and others, physically hurt you : never How often does anyone, including family, friends and others, insult or talk down to you: never How often does anyone, including family, friends and others, threaten you with harm: never How often does anyone, including family, friends and others, scream or curse at you: never service: No Exam Narrative: Exam Narrative: Const: Well-nourished, Well-developed, in mild distress Eyes: PERRL, no conjunctival injection, and symmetrical lids HENT: Atraumatic external nose and ears. Moist mucous membranes. Neck: Symmetric, trachea midline, No thyromegaly. CVS: RRR, No murmurs or gallops. Peripheral pulses 2+ and equal in all extremities RESP: Unlabored respiratory effort. Clear to auscultation bilaterally. GI: Nontender/Nondistended, No rebound or guarding. MSK:Extremities w/o deformity, Normal Active ROM Skin: Warm, Dry. No rashes or lesions. Neuro: Normal Muscle tone, No focal neurological deficits other than chronic right leg numbness Psych: Awake, Alert, & Oriented x3. Appropriate mood and affect. Const: Vital Signs, click to edit/add: Vital Signs - 24 hr 12/09/22 13:40 12/09/22 15:22 Temperature 97.2 F L Pulse Rate [Pulse Oximeter] 73 Respiratory Rate 20 Blood Pressure [Ri ght Upper Arm] 149/115 H Pulse Oximetry 98 96 Oxygen Delivery Me thod Room Air Course Vital Signs Vital signs: Initial Vital Signs Temperature 97.2 F L 12/09/22 13:40 Temperature Source Temporal Artery Scan 12/09/22 13:40 Pulse Rate 73 12/09/22 13:40 Respiratory Rate 20 12/09/22 13:40 Blood Pressure 149/115 H 12/09/22 13:40 Blood Pressure Mean 126 H 12/09/22 13:40 Pulse Oximetry 98 12/09/22 13:40 Oxygen Delivery Method Room Air 12/09/22 13:40 Vital Signs Temperature 97.2 F L 12/09/22 13:40 Pulse Rate 73 12/09/22 13:40 Respiratory Rate 20 12/09/22 13:40 Blood Pressure 149/115 H 12/09/22 13:40 Pulse Oximetry 98 12/09/22 13:40 Oxygen Delivery Method Room Air 12/09/22 13:40 Temperature 97.2 F L 12/09/22 13:40 Pulse Rate 73 12/09/22 13:40 Respiratory Rate 20 12/09/22 13:40 Blood Pressure 149/115 H 12/09/22 13:40 Pulse Oximetry 96 12/09/22 15:22 Oxygen Delivery Method Room Air 12/09/22 13:40 MDM - Back Pain/Injury MDM Narrative Medical decision making narrative: Patient is a 66-year-old male presenting to emergency department for back pain. He has chronic back issues psycho acutely worse for the past day after he mopped his floor yesterday. He states the pain is usually tolerable. Patient has no red flag symptoms and Misbah equina seems unlikely. He lives in a split-level home with his bedroom on the upper level. Says he is usually able to get up the steps slowly. Denies any trauma or injuries to his back. Most of the pain is in the low back to lower right paraspinal on region. Hurts with lifting his right leg. I do not believe is necessary to do imaging of this patient right now is he has known chronic back issues and denies any recent trauma to his back or falls. The give him dose of oxycodone Toradol and then a dose of morphine. After the morphine he was able to stand up in take a few steps. I spoke to him about admission versus discharge with explained with him for admission there would only be able to give him pain medicine is not much different than what we will do for him if he goes home. At this time he is agreeable to try to go home. EMS will come and help him up his steps. He is agreeable to this plan at this time. He will be discharged with some oxycodone. Discharge Plan Discharge Clinical Impression: Low back pain Qualifiers: Chronicity: unspecified Back pain laterality: right Sciatica presence: without sciatica Qualified Code(s): M54.50 - Low back pain, unspecified Patient Disposition: Home, Self-Care Condition: Improved Instructions: Acute Low Back Pain (ED) Additional Instructions: Take Tylenol and ibuprofen for the pain and that has not helped pain take the prescribed oxycodone. He can also keep using muscle relaxers. Return for new or worsening symptoms Prescriptions: New oxycodone 5 mg tablet 5 mg PO Q6H PRN (Reason: pain) Qty: 12 0RF No Action metoprolol tartrate 50 mg tablet 50 mg PO BID Qty: 180 3RF fluconazole 150 mg tablet See Rx Instructions PO .ud Qty: 3 1RF Rx Instructions: 150 mg Q3D for 3 doses orally UD; clotrimazole 1 % cream 1 applic topical BID Qty: 30 1RF Eliquis 5 mg tablet 5 mg PO BID Qty: 180 4RF Jardiance 25 mg tablet 25 mg PO QAM Qty: 90 3RF sennosides-docusate sodium [Stool Softener-Laxative] 8.6-50 mg Tablet 2 tab-cap PO BID PRN (Reason: constipation) Levemir FlexPen 100 unit/mL (3 mL) Insulin Pen 22 unit subcut QAM tizanidine 4 mg tablet 2 - 4 mg PO Q8H PRN (Reason: for muscle spasm) Qty: 36 2RF tadalafil 20 mg tablet 20 mg PO Q OTHER DAY PRN (Reason: sexual activity) Qty: 6 5RF meclizine 25 mg tablet 25 mg PO .Q6 PRN (Reason: dizziness) Qty: 30 2RF levetiracetam 1,000 mg tablet See Rx Instructions .ROUTE .COMPLEX Qty: 225 3RF Dose Instruction: TAKE 1 TABLET BY MOUTH IN THE MORNING AND 1.5 TABLETS AT BEDTIME Rx Instructions: TAKE 1 TABLET BY MOUTH IN THE MORNING AND 1.5 TABLETS AT BEDTIME metformin 1,000 mg tablet 1,000 mg PO BIDWMEAL Qty: 180 3RF furosemide 40 mg tablet 40 mg PO BID Qty: 180 3RF magnesium oxide 400 mg (241.3 mg magnesium) tablet 400 mg PO DAILY Qty: 90 0RF omeprazole 20 mg capsule,delayed release(DR/EC) 20 mg PO DAILY Qty: 90 0RF Follow Up/Referrals: Isaac Logan MD [Primary Care Provider] - Stand Alone Forms: [employer] Info Instructions
[2022-12-09] MEDS: OXYCODONE 5 MG TABLET PO (14:14)
[2022-12-09] MEDS: KETOROLAC 30 MG/ML inj IM (14:14)
[2022-12-09] MEDS: MORPHINE 10 MG/ML inj 8 MG IM (15:20)
[2022-12-09 15:22] VITALS: O2SAT 96
--- NOTE | 2022-12-09 16:00 | ED.NURSE ---
Patient will discharge via EMS due to habitus of over 350lb. He will be assisted up the steps to his residence. Reports feeling better at time of discharge.
== END 2022-12-09 16:55 | disposition home or self-care (01) ==
PROVIDERS: Emergency Provider Student in an Organized Health Care Education/Training Program; PCP Family Medicine
DX: M54.50 Low back pain, unspecified (principal)
CPT/HCPCS: 94761; 96372; 99283; A9270; J1885; J2270

== ENCOUNTER 2022-12-09 16:25 | Outpatient (CLI) | payer OTHER, SELFPAY ==
--- OUTSIDE RECORDS SUMMARY | 2022-12-24 14:26 | XMS_ITS | Continuity of Care Document ---
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 [address], [place], [address], [place]. tel:[phone] Referring Provider: Oc Peck MD, [address] [place], [address]. tel:[phone] Offic/outpt E&m Estab Low-mod [facility], [address], [place], [place], [id number], tel:[phone] [facility] No Information 5 Shelly NAVARRO Cl. [address], [place], [address], [place]. tel:[phone] Referring Provider: Oc Peck MD, [address] [facility], [place], [address]. tel:[phone] Family History Family Member Type Diagnosis Age At Onset No Information Payers Payer name Insurance type Covered alliance party ID Authoriza tialexandr(s) [employer] [facility] [id number] Social History Type Description Quantity Date Captured [...]
== END 2022-12-09 16:26 | disposition home or self-care (01) ==
LOC: AMB 12-24 14:24
PROVIDERS: PCP Family Medicine; Visit Provider Student in an Organized Health Care Education/Training Program
DX: M54.9 Dorsalgia, unspecified (principal)
CPT/HCPCS: A0425; A0428

== ENCOUNTER 2023-02-12 16:26 | Emergency (ER) | payer OTHER, SELFPAY ==
[2023-02-12 16:31] VITALS: BP 152/95; PULSE 83; RESP 18; TEMP 36.1; O2SAT 97; BMI 51.5
--- NOTE | 2023-02-12 17:19 | ED.GENADULT ---
HPI - General Adult General Chief complaint: Back Injury/Pain Stated complaint: back pain, can't walk Time Seen by Provider: 02/12/23 17:17 History of Present Illness HPI narrative: 67-year-old male coming in today complaining of low back pain. Patient states that this is a recurrent problem for him. He has had a history of chronic narcotic use for this, epidural injections. He states that he no longer uses chronic narcotics. The last time he had oxycodone was in December of last year for with an acute episode like this occurred. He denies any alarming symptoms such as loss of bowel function, no fevers or chills. He denies any trauma to the back. He states that this episode is not unlike previous ones. Patient states that he had a very bad Bird: Patient got on January 26 that his house was repossessed on the . States that he is currently living in a hotel by himself. He states that he has reached out to the [facility] for some help and is waiting to hear back. Related Data Home Medications Medication Instructions Recorded Confirmed insulin detemir U-100 100 unit/mL 22 unit subcut QAM 09/09/22 02/12/23 (3 mL) subcutaneous pen (Levemir FlexPen) sennosides 8.6 mg-docusate sodium 2 tab-cap PO BID PRN constipation 09/09/22 09/09/22 50 mg tablet (Stool Softener-Laxative) Previous Rx's Medication Instructions Recorded metoprolol tartrate 50 mg tablet 50 mg PO BID #180 tabs 01/23/22 tizanidine 4 mg tablet 2 - 4 mg (0.5 - 1 x 4 mg) PO Q8H 04/17/22 PRN for muscle spasm #36 tabs tadalafil 20 mg tablet 20 mg PO Q OTHER DAY PRN sexual 06/05/22 activity #6 tabs apixaban 5 mg tablet (Eliquis) 5 mg PO BID #180 tabs 08/31/22 empagliflozin 25 mg tablet 25 mg PO QAM #90 tabs 08/31/22 (Jardiance) meclizine 25 mg tablet 25 mg PO .Q6 PRN dizziness #30 tabs 09/11/22 clotrimazole 1 % topical cream 1 applic topical BID #30 grams 09/16/22 levetiracetam 1,000 mg tablet See Rx Instructions .Route 09/29/22 .COMPLEX #225 tabs furosemide 40 mg tablet 40 mg PO BID #180 tabs 10/06/22 metformin 1,000 mg tablet 1,000 mg PO BIDWMEAL #180 tabs 10/06/22 magnesium oxide 400 mg (241.3 mg 400 mg PO DAILY #90 tabs 11/06/22 magnesium) tablet omeprazole 20 mg capsule,delayed 20 mg PO DAILY #90 caps 11/06/22 release fluconazole 150 mg tablet See Rx Instructions PO .ud #3 tabs 01/13/23 Allergies Allergy/AdvReac Type Severity Reaction Status Date / Time No Known Allergies Allergy Unknown Verified 09/09/22 08:39 Review of Systems Status of ROS: Reports: 10 or more systems reviewed and unremarkable except as noted in History and below [facility] Medical History Generalized weakness ?R53.1 - Weakness (ICD-10) Erectile dysfunction ?N52.9 - Male erectile dysfunction, unspecified (ICD-10) Gross hematuria ?R31.0 - Gross hematuria (ICD-10) Sebaceous cyst ?L72.3 - Sebaceous cyst (ICD-10) Gastroesophageal reflux ?K21.9 - Gastro-esophageal reflux disease without esophagitis (ICD-10) Edema ?R60.9 - Edema, unspecified (ICD-10) Recurrent pancreatitis Tobacco use ?Z72.0 - Tobacco use (ICD-10) Mastoiditis ?H70.90 - Unspecified mastoiditis, unspecified ear (ICD-10) Surgical History History of tonsillectomy and adenoidectomy ?Z90.89 - Acquired absence of other organs (ICD-10) History of laminectomy ?Z98.890 - Other specified postprocedural states (ICD-10) History of esophageal surgery ?Z98.890 - Other specified postprocedural states (ICD-10) Social History Narrative: . Lives independently. Smoked 40-50 years, 1 pack every 3 days. Quit all alcohol almost a year ago per Dr. Logan's recommendation. Uses marajuana daily to help with sleep. DNR/DNI. What is your current living situation?: I presently have a place to live Problems where you live: mold Problems where you live details: Mold in the basement In the past 12 months, utilities in danger of being shut off: no In past 12 months, lack of transportation kept you from medical appts, meetings, work, or getting things needed for daily living: no In the past 12 mos, have been you worried that your food would run out before you had money to buy more?: sometimes true In the past 12 mos, the food you bought just didn't last and you didn't have money to buy more?: sometimes true Highest level of school completed/degree received: Associate degree: occupational, technical, vocational program Smoking Status: Former smoker Do you use any of these nicotine containing products: None Second hand tobacco smoke exposure: No How often do you have a drink containing alcohol: never How often do you have six or more drinks on one occasion: Never AUDIT-C Alcohol total score: 0 Non-prescribed substance use: marijuana (any form) Non-prescribed substance use details: daily Caffeine: Yes (6 cups daily) How often does anyone, including family, friends and others, physically hurt you: never How often does anyone, including family, friends and others, insult or talk down to you: never How often does anyone, including family, friends and others, threaten you with harm: never How often does anyone, including family, friends and others, scream or curse at you: never service: No Exam Narrative: Exam Narrative: Obese patient in no acute distress. Alert and oriented x3. Answers questions appropriately. Mood and affect are appropriate. Thoughts are goal oriented and rational. No tangential or magical thinking noted. Patient speaks in full sentences without needing to catch his breath. HEENT: Normocephalic atraumatic. Pupils are equally round reactive to light. Extraocular muscles are intact. Conjunctivae are moist without any icterus noted. Moist mucous membranes. Posterior pharynx is normal. Neck is soft without any lymphadenopathy or thyromegaly. No masses are appreciated. Patient has poor dentition with several missing teeth. Cardiovascular: Heart is regular rate and rhythm. Lungs: Clear to auscultation bilaterally. Abdomen: Soft, protuberant and nontender. Cannot assess for organomegaly secondary to body habitus. Extremities: Bilateral lower extremities show edema with woody induration. Patient is lying down in bed and can elevate both legs into the air. He can ambulate but it is difficult. Skin: Well perfused without any obvious rashes. Const: Vital Signs, click to edit/add: Vital Signs - 24 hr 02/12/23 16:31 02/12/23 18:00 Temperature 97 F L Pulse Rate [Pulse Oximeter] 83 Respiratory Rate 18 Blood Pressure [Ri ght Upper Arm] 152/95 H Pulse Oximetry 97 96 Oxygen Delivery Me thod Room Air Course Course ED Course: IV is established and patient received 4 mg of IV morphine. This did help the patient requested oral medication as well. He received oxycodone-APAP orally. He was then able to walk around with his walker. Patient comfortable going home with some pain medication. Vital Signs Vital signs: Initial Vital Signs Temperature 97 F L 02/12/23 16:31 Temperature Source Temporal Artery Scan 02/12/23 16:31 Pulse Rate 83 02/12/23 16:31 Respiratory Rate 18 02/12/23 16:31 Blood Pressure 152/95 H 02/12/23 16:31 Blood Pressure Mean 114 H 02/12/23 16:31 Blood Pressure Position Sitting 02/12/23 16:31 Pulse Oximetry 97 02/12/23 16:31 Oxygen Delivery Method Room Air 02/12/23 16:31 Vital Signs Temperature 97 F L 02/12/23 16:31 Pulse Rate 83 02/12/23 16:31 Respiratory Rate 18 02/12/23 16:31 Blood Pressure 152/95 H 02/12/23 16:31 Pulse Oximetry 97 02/12/23 16:31 Oxygen Delivery Method Room Air 02/12/23 16:31 Temperature 97 F L 02/12/23 16:31 Pulse Rate 83 02/12/23 16:31 Respiratory Rate 18 02/12/23 16:31 Blood Pressure 152/95 H 02/12/23 16:31 Pulse Oximetry 96 02/12/23 18:00 Oxygen Delivery Method Room Air 02/12/23 16:31 Medications Administered Medications: Discontinued Medications Generic Name Dose Route Start Last Admin Trade Name Freq PRN Reason Stop Dose Admin Morphine Sulfate 4 mg 02/12/23 17:24 02/12/23 18:09 Morphine 4 Mg/Ml Inj IVP 02/12/23 17:25 4 mg ONCE ONE Administration Oxycodone/Acetaminophen 2 tab 02/12/23 18:42 02/12/23 18:57 Oxycodone/Apap 5-325 Tablet PO 02/12/23 18:43 2 tab ONCE ONE Administration Medical Decision Making MDM Narrative Medical decision making narrative: 67-year-old male with exacerbation of chronic back pain. Patient will be sent home 10 tablets of Percocet. He has had in the past with success. Last time he picked up any narcotic medications was December of last year according to the [place] pharmacy monitoring program. Recommend he follow-up with his primary care provider as needed. Discharge Plan Discharge Clinical Impression: Low back pain Patient Disposition: Home, Self-Care Condition: Improved Additional Instructions: Recommend you follow-up with your primary care provider or back specialist as needed. Prescriptions: No Action metoprolol tartrate 50 mg tablet 50 mg PO BID Qty: 180 3RF clotrimazole 1 % cream 1 applic topical BID Qty: 30 1RF Eliquis 5 mg tablet 5 mg PO BID Qty: 180 4RF Jardiance 25 mg tablet 25 mg PO QAM Qty: 90 3RF sennosides-docusate sodium [Stool Softener-Laxative] 8.6-50 mg Tablet 2 tab-cap PO BID PRN (Reason: constipation) Levemir FlexPen 100 unit/mL (3 mL) Insulin Pen 22 unit subcut QAM tizanidine 4 mg tablet 2 - 4 mg PO Q8H PRN (Reason: for muscle spasm) Qty: 36 2RF tadalafil 20 mg tablet 20 mg PO Q OTHER DAY PRN (Reason: sexual activity) Qty: 6 5RF meclizine 25 mg tablet 25 mg PO .Q6 PRN (Reason: dizziness) Qty: 30 2RF levetiracetam 1,000 mg tablet See Rx Instructions .ROUTE .COMPLEX Qty: 225 3RF Dose Instruction: TAKE 1 TABLET BY MOUTH IN THE MORNING AND 1.5 TABLETS AT BEDTIME Rx Instructions: TAKE 1 TABLET BY MOUTH IN THE MORNING AND 1.5 TABLETS AT BEDTIME metformin 1,000 mg tablet 1,000 mg PO BIDWMEAL Qty: 180 3RF furosemide 40 mg tablet 40 mg PO BID Qty: 180 3RF magnesium oxide 400 mg (241.3 mg magnesium) tablet 400 mg PO DAILY Qty: 90 0RF omeprazole 20 mg capsule,delayed release(DR/EC) 20 mg PO DAILY Qty: 90 0RF fluconazole 150 mg tablet See Rx Instructions PO .ud Qty: 3 1RF Rx Instructions: 150 mg Q3D for 3 doses orally UD; Follow Up/Referrals: Isaac Logan MD [Primary Care Provider] - Stand Alone Forms: cinvolve Info Instructions
[2023-02-12 18:00] VITALS: O2SAT 96
[2023-02-12] MEDS: MORPHINE 4 MG/ML INJ IVP (18:09)
--- OUTSIDE RECORDS SUMMARY | 2023-02-12 18:22 | XMS_ITS | Continuity of Care Document ---
Author Name Unknown Organization [facility] Address [address] [address] [place] [address] Phone Care Team Providers Care Reformatory Attendant Name Role Phone Unavailable Unavailable Unavailable Advance Directives Directive Yes / No Effective Date File Name No Information Encounters Encounter Description Practice Location Reason(s) For Visit Diagnoses Date Provider Providers Copied on Encounter [facility], [address] [address], [place], [place], [id number], [place] tel:[phone] [facility] No Information No Information Referring Provider: Zachary howell, [address], [place], [address]. tel:[phone] Family History Family Member Type Diagnosis Age At Onset No Information Payers Payer name Insurance type Covered alliance party ID Authoriza tion(s) Medical [place] [facility] [id number] Social History Type Description Quantity Date Captured [...]
--- OUTSIDE RECORDS SUMMARY | 2023-02-12 18:22 | XMS_ITS | Continuity of Care Document ---
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 [address], [place], [address], [place]. tel:[phone] Referring Provider: Oc Peck MD, [address] [place], [address]. tel:[phone] Offic/outpt E&m Estab Low-mod [facility], [address], [place], [place], [id number], tel:[phone] [facility] No Information 5 Shelly NAVARRO Cl. [address], [place], [address], [place]. tel:[phone] Referring Provider: Oc Peck MD, [address] [facility], [place], [address]. tel:[phone] Family History Family Member Type Diagnosis Age At Onset No Information Payers Payer name Insurance type Covered democrat ID Authoriza tialexandr(s) Preferred [facility] [id number] Social History Type Description Quantity Date Captured [...]
[2023-02-12] MEDS: OxyCODONE/APAP 5-325 TABLET 2 TAB PO (18:57)
--- NOTE | 2023-02-12 19:48 | ED.NURSE ---
pt able to tolerate walking
== END 2023-02-12 20:35 | disposition home or self-care (01) ==
PROVIDERS: Emergency Provider Family Medicine; PCP Family Medicine
DX: M54.50 Low back pain, unspecified (principal)
CPT/HCPCS: 94761; 96374; 99283; 99284; A9270; J2270

== ENCOUNTER 2023-02-23 14:08 | Outpatient (CLI) | payer OTHER, SELFPAY ==
--- NOTE | 2023-02-23 14:30 | CRLHL7_ITS ---
For Patients: As a result of the Century Cures Act, medical imaging exams and procedure reports are released immediately into your electronic medical record. You may view this report before your referring provider. If you have questions, please contact your health care provider. INDICATION: Lumbar radiculopathy. TECHNIQUE : Lumbar spine MRI without contrast. The following sequences were obtained: Sagittal T1, T2 weighted and STIR sequences. Axial T1 and T2 weighted sequences. COMPARISON: CT abdomen/pelvis from 02/13/2022. FINDINGS : A partially lumbarized S1 segment, with hyperplastic transverse processes which are fused with the sacral ala on the left. Five non rib-bearing lumbar type vertebral bodies above this level. Normal lumbar lordotic curve. No recent compression fracture or marrow replacing process. Lower cord/conus signal is normal. The conus terminates at a normal location. No intradural lesion. No extraspinal soft tissue abnormalities. Discs/Endplates: At L5-S1, advanced disc height loss is disc desiccation and endplate remodeling. At L1-2, mild disc height loss/disc desiccation. Minimal disc degeneration elsewhere. Stir hyperintensity within the anterior vertebral bodies and L1 through L3, likely reactive/degenerative. Findings at individual levels as follows: T12-L1: No spinal canal or neural foraminal stenosis. L1-2: Trace retrolisthesis. Mild disc bulge. Bilateral low-grade facet arthrosis. Mild bilateral foraminal stenosis. No spinal canal stenosis. L2-3: Trace retrolisthesis. Mild disc bulge. Bilateral low-grade facet arthrosis. Mild bilateral neural foraminal stenosis. No spinal canal stenosis. L3-4: Trace retrolisthesis. Mild disc bulge. Bilateral facet arthrosis. Mild bilateral neural foraminal stenosis. No spinal canal stenosis. L4-5: Mild disc bulge. Bilateral facet arthrosis. Mild bilateral neural foraminal stenosis. No spinal canal stenosis. L5-S1: A right-sided foraminotomy site. Moderate disc bulge with overlying osteophytic ridging and superimposed right subarticular extrusion with caudal migration which impinges the traversing right S1 nerve root. Bilateral low-grade facet arthrosis. Overall mild to moderate spinal canal stenosis, mild left and moderate right neural foraminal stenosis. S1-2: No spinal canal or neural foraminal stenosis. Imaged SI joints: Within normal limits. Imaged sacrum: Within normal limits. IMPRESSION: 1. Transitional segment designated S1. 2. At L5-S1, a right-sided foraminotomy site. Presumed residual/recurrent right subarticular disc extrusion which impinges the traversing right S1 nerve root. Overall mild to moderate spinal canal stenosis and moderate right neural foraminal stenosis. 3. Scattered spondylosis at the remaining imaged levels without high-grade spinal canal/neural foraminal stenosis or ignacia impingement on neural structures. 4. Type 1 reactive marrow changes involving the anterior L1 through L3 vertebral bodies. Dictated by Fidel Serrano MD @ 02/23/2023 4:17:09 PM (Electronically Signed)
== END 2023-02-23 14:09 | disposition home or self-care (01) ==
PROVIDERS: PCP Family Medicine; Visit Provider Registered Nurse
DX: M54.16 Radiculopathy, lumbar region (principal); M48.07 Spinal stenosis, lumbosacral region; M47.896 Other spondylosis, lumbar region
CPT/HCPCS: 72148

== ENCOUNTER 2023-06-09 13:30 | Outpatient (RCR) | payer MEDICAID, SELFPAY | END 2024-06-08 13:45 | disposition home or self-care (01) | LOC: MOW 13:30 | PROVIDERS: PCP Family Medicine; Visit Provider Family Medicine | DX: Z76.0 Encounter for issue of repeat prescription (principal) | CPT/HCPCS: S5170 ==

== ENCOUNTER 2023-07-19 18:42 | Emergency (ER) | payer MEDICARE, BC, MEDICAID, SELFPAY ==
[2023-07-19] VITALS (37 sets, daily range): BP systolic 100–179; BP diastolic 77–163; PULSE 67–230; RESP 16–20; TEMP 36.4–36.6; O2SAT 81–100; BMI 49.6
--- OUTSIDE RECORDS SUMMARY | 2023-07-19 19:17 | XMS_ITS | Data Portability ---
Author Organization [place] [facility] [place] [facility] Address [address] [place] [address] Assessment No assessment recorded. Plan of Treatment Reminders Order Date Submit Date Provider Last Modified By Organization Details Last Modified Time Details Appointments None recorded. Lab urinalysis, dipstick 2022 023 [email or web address] 30 [facility], [address], [place], [address], 3 11:36:38 Referral None recorded. Procedures None recorded. Surgeries cystoscopy with bladder biopsy (SURG) 2022 023 [email or web address] Not available 12:11:53 Imaging None recorded. Medication Orders None recorded. Patient TargetsNo targets recorded. Patient InstructionsNo instructions recorded. Reason for Referral None Reported. Results Created Date Observation Date Name Description Value Unit Range Abnormal Flag LastModifiedBy Organization Detail LastModifiedTime 03/26/1903/26/2022 urina lysis , dipst ick Color-Status Yellow Not Available [facility] [address], [place], [address], 03/26/2022 11:36:14 03/26/19 23 03/26/2022 urina lysis , dipst ick pH-Status 6.0 Not Available [facility] [address], [place], [address], 03/26/2022 11:36:14 03/26/19 23 03/26/2022 urina lysis , dipst ick Nitrates-Sta tus negati ve Not Available [facility] [address], [place], [address], 03/26/2022 11:36:14 03/26/19 23 03/26/2022 urina lysis , dipst ick Blood-Status Large Not Available [facility] [address], [place], [address], 03/26/2022 11:36:14 03/26/19 23 03/26/2022 urina lysis , dipst ick Leuko-Status Negati ve Not Available [facility] [address], [place], [address], 03/26/2022 11:36:14 Result Notes None recorded. Problems Name Status Onset Date Resolution Date Notes Provider Name and Address Organization Details Recorded Time Malignant tumor of prostate Active 05/06/19 17 C61 : Malignant neoplasm of prostate Not Available [facility] 07/27/2019 02:07:27 Carcinoma of prostate Active 03/26/19 23 Baron Burt MD [address] [place] [address],[address], [address], [facility] 03/26/2022 11:52:55 Blood in urine Active 03/26/19 23 Baron Burt MD [address] [place] [address],[address], [address], [facility] 03/26/2022 11:55:16 Problem Notes None recorded. Procedures Surgical History Date Name Laterality Status Provider Name and Address Organization Details Recorded Time procedure on back completed Silvana yeung [facility] 03/26/2022 11:36:06 Imaging Results None recorded. Procedure Notes None recorded. Medical Equipment None Reported. Allergies No known drug allergies Medications Name Sig Start Date Stop Date Status Note LastModified by Organization Details LastModified Time furosemide 40 mg tablet active Not Available Not Available Not Available lisinopril 20 mg-hydrochlo rothiazide 12.5 mg tablet active Not Available Not Available Not Available glipizide 10 mg tablet active Not Available Not Available No t Available spironolacto ne 25 mg tablet active Not Available Not Available Not Available amlodipine 10 mg tablet active Not Available Not Available Not Available metformin 1,000 mg tablet active Not Available Not Available Not Available metoprolol tartrate 50 mg tablet active Not Available Not Available No t Available Novolog FlexPen U-100 Insulin aspart 100 unit/mL (3 mL) subcutaneous INJECT 12 UNITS SUBCUTANEOU SLY BEFORE MEAL(S) active Not Available Not Available No t Available Jantoven 7.5 mg tablet active Not Available Not Available No t Available levetiraceta m 1,000 mg tablet active Not Available Not Available Not Available pen needle, diabetic 32 gauge x USE DIRECTED active Not Available Not Available No t Available Vitals Date Recorded Body height Body mass index (BMI) Body weight Provider Name and Address Organization Details Last Updated DateTime 03/26/2022 182.88 cm 52.9 kg/m2 197318.02 g Silvana Mckeon [facility] 03/26/2022 11:34:15 Social History Question Answer Notes LastModified by Organizat ion Details LastModified Time Tobacco Smoking Status Former Smoker Silvana yeung [facility] 03/26/2022 11:35:06 What Is Your Level Of Alcohol Consumption? None Information not available 03/26/2022 What Is Your Level Of Caffeine Consumption? Moderate [email or web address] Information not available 03/26/2022 What Was The Date Of Your Most Recent Tobacco Screening? 03/26/2022 [email or web address] Information not available 03/26/2022 Do You Use Any Illicit Or Recreational Drugs? No [email or web address] Information not available 03/26/2022 Sex: Male Functional Status None recorded. Mental Status None recorded. Family History Nothing Reported. Medical History Condition Response High Blood Pressure Y GERD/Acid Reflux Y Cancer Y Diabetes Y Immunizations Vaccine Type Date Status Provider Name and Address Organization Details Recorded Time pneumococcal polysaccharide PPV23 04/14/2000 completed Silvana yeung [facility] 03/26/2022 11:28:45 Past Encounters Encounter ID Performer Location Encounter Start Date Encounter Closed Date Diagnosis/Indication Diagnosis SNOMED-CT Code [id number] Baron Burt MD [facility] [address] [place], [place] [address]e. [place] [address] 03/26/2022 11:11:02 03/30/2022 13:49:57 Blood in urine 24891223 Carcinoma of prostate 25 7472888 Health Concerns Section Related Observation LastModified by Organization Detai ls LastModified Time None Recorded Concern Status LastModified by Organization Details LastModified Time None Recorded Advance Directives Directive None Recorded Payers Encounter Date Sequence Insurance Name Policy Number Policy Perdomo Covered Member ID Perdomo Member ID Guarantor Name 03/26/2022 1 [place] [employer] [id number] 5 Anoop Myers Notes Date Note Type Note Provider Name and Address Organization Details Recorded Time 03/26/2022 text/html HPI Notes: New patient referred for painless gross hematuria. He was originally referred to me in 2014 for a PSA of 10.6. Biopsy showed [place] 3+3 prostate cancer and he was initially on active surveillance but PSA shena to 12.8 and he had an MRI showing a PI-RADS 4 lesion. Targeted biopsies showed [place] 4+4 prostate cancer. He completed external beam radiation in 2017 along with 2 years of androgen deprivation therapy. He has been lost to follow-up in our clinic since 04/06/2017. I reviewed the most recent clinic notes from Dr. Isaac Logan dated 02/13/20[address] as [address] as the CT abdomen and pelvis with IV contrast report from [facility] dated 02/13/2022. This shows normal kidneys bilaterally with no hydronephrosis, masses or stones. Prostate was enlarged and bladder normal. According to Dr. Logan's notes, most recent PSA was 0.37 on 01/23/2022. He does have chronic urinary frequency and nocturia since undergoing radiation. Urinalysis today shows large blood, 100 mg/dL protein, otherwise unremarkable. Other pertinent medical history significant for insulin-dependent diabetes, chronic pancreatitis and opioid dependence. He takes warfarin for a stroke in 2009. He also uses Cialis 20 mg as needed. Baron Burt MD [address], [place], [address], [facility] 03/26/2022 11:56:15
--- OUTSIDE RECORDS SUMMARY | 2023-07-19 19:18 | XMS_ITS | Clinical Summary ---
Author Organization [facility] Address [place], [place] [address] Care Team Providers Care [facility] Name Role Phone Isaac Logan MD Primary Care Provider [phone] Allergies No known active allergies Medications Medication Sig Dispensed Refills Start Date End Date Status glipiZIDE (GLUCOTROL) 5 mg tabletIndications:T ype 2 diabetes mellitus with stage 2 chronic kidney disease, without long-term current use of insulin (HC) Take 1/2 tablets by mouth once daily before a meal. 30 tablet 05/04/2018 Active Additional Information Patient taking differently: 10 mgOralTWICE DAILY BEFORE MEALS, Informant: Patient's Med List, Reported on 04/10/2022 metFORMIN (GLUCOPHAGE) 1,000 mg tabletIndications:T ype 2 diabetes mellitus with stage 2 chronic kidney disease, without long-term current use of insulin (HC) Take 1 tablet by mouth 2 times daily with meals. 30 tablet 05/04/2018 Active metoprolol tartrate (LOPRESSOR) 50 mg tabletIndications:P ersistent atrial fibrillation (HC) Take 1 tablet by mouth 2 times daily. 60 tablet 05/04/2018 Active levETIRAcetam (KEPPRA) 1,000 mg tabletIndications:A cute left ankle pain Take 1 tablet by mouth once daily AND 1.5 tablets at bedtime. 75 tablet 11 05/04/2018 Active lisinopril-hydrochl orothiazide 20-12.5 mg tablet (PRINZIDE)Indicatio ns:Essential hypertension Take 1 tablet by mouth once daily. 30 tablet 05/05/2018 Active Additional Information Patient taking differently: 2 TabletOral DAILY, Informant: Patient's Med List, Reported on 04/10/2022 amLODIPine (NORVASC) 10 mg tabletIndications:E ssential hypertension Take 1 tablet by mouth once daily. 30 tablet 05/05/2018 Active warfarin (COUMADIN) 7.5 mg tabletIndications:P ersistent atrial fibrillation (HC) Take 2 tablets by mouth once daily. 10 tablet 05/05/2018 Active furosemide (LASIX) 40 mg tablet Take 40 mg by mouth two times daily. Active pantoprazole (PROTONIX) 40 mg delayed-release tablet Take 40 mg by mouth once daily. Active spironolactone (ALDACTONE) 25 mg tablet Take 25 mg by mouth once daily. Active tadalafiL (CIALIS;ADCIRCA) 20 mg tablet Take 20 mg by mouth once daily if needed for Erectile Dysfunction. Take 30 minutes before sexual activity. Active tiZANidine (ZANAFLEX) 2 mg tablet Take 2 mg by mouth every 8 hours if needed for Muscle Spasm. 1-2 TABLETS EVERY 8 HOURS NEEDED Active HYDROcodone-acetami nophen (NORCO) 5-325 mg per tablet Take 1 Tablet by mouth every 6 hours if needed for Pain. Max acetaminophen dose: 4000 mg in 24 hrs. Active INSULIN ASPART U-100 SUBQ Inject 12 units subcutaneous three times daily. Active Active Problems Problem Noted Date Diagnosed Date Left hemiparesis 04/28/2018 Metabolic encephalopathy 04/28/2018 Dysarthria 04/28/2018 ACP (advance care planning) 04/26/2018 Overview: Patient has identified Health Care Agent(s): Yes JOHN FRANKS Mobile Relation: Spouse Patient has Advance Care Plan Documents (Health Care Directive, POLST): No, Health Care Packet given to patient. Patient has identified Specific Treatment Preferences: No Specific limits to treatment preferences NOT identified: ASSUME FULL TREATMENT. Confusion 04/24/2018 Dysarthria 04/24/2018 Weakness 04/24/2018 Head pain 04/24/2018 Chronic alcohol dependence, continuous 9 History of gastroesophageal reflux 10/12/2009 History of recurrent pancreatitis 10/12/2009 Overview: Over six hospitalizations. MRSA infection (methicillin- resistant Staphylococcus aureus) 10/12/2009 Overview: Posterior neck, 2007. Obstructive sleep apnea 10/12/2009 Overview: Patient wakes during sleep for many years. Acute right-sided weakness 10/12/2009 Overview: Since 10/04/2009 with occasional attacks in months prior. Cannabis dependence, continuous use 10/12/2009 Overview: Smokes daily. Obesity 10/12/2009 Overview: Associated with sleep apnea and history of pancreatitis. Normal triglycerides. Impotence 10/12/2009 Overview: Possibly due to erectile dysfunction or emotional stress. Elevated creatine kinase 10/12/2009 Overview: 291 on 10/11/2009. Seizure like spells 10/12/2009 Diabetes mellitus type II 10/04/2009 Overview: Patient takes Metformin 1000mg. a system change updated this record. This will not affect patient care or billing. This comment can be deleted. HTN (hypertension) 10/04/2009 Overview: Patient takes Lisinopril-Hydroclorothiazide 20-12.5mg, Simvastatin 20mg, Amlodipine 10mg. TIA (transient ischemic attack) 10/04/2009 Tobacco use disorder 10/04/2009 Overview: 1/2 PPD for 30 years. Seizure Acute left ankle pain Resolved Problems Problem Noted Date Diagnosed Date Resolved Date Spells resembling tonic clonic seizures 10/12/2009 10/12/2009 Overview: Began 10:30pm on 10/11/2009. Immunizations Name Administration Dates Next Due Influenza A (H1N1), Inactivated 02/07/2009 Influenza Virus, Unspecified 11/09/2007 Influenza, IIV3 (Age 6-35 mos) 11/29/2013 Influenza, IIV3 (Age >=3 years) 12/09/19 12,10/02/2010,12/30/2009,2008,11/28/2007 Influenza, IIV4 12/07/2016 Pneumococcal Poly,23-Valent (Pneumovax) 04/14/2000 Tdap 11/29/2013,09/11/2008 Family History Medical History Relation Name Comments Heart Disease Brother Has enlarged heart GI Disease Father Diabetes Maternal Aunt Heart Disease Mother 82 Relation Name Status Comments Brother Father Maternal Aunt Mother Social History Tobacco Use Types Packs/Day Years Used Date Smoking Tobacco: Former Cigarettes 0.5 30 0 04/28/1987 - 04/27/2017 Smokeless Tobacco: Never Tobacco Cessation:Counseling Given: Not Answered Comments:1/2 PPD Alcohol Use Standard Drinks/Week Comments Yes 0 (1 standard drink = 0.6 oz pur e alcohol) 1 /week, occassnally Sex and Gender Information Value Date Recorded Sex Assigned at Not on file Gender Identity Not on file Sexual Orientation Not on file Obstetrics History Last Filed Vital Signs Vital Sign Reading Time Taken Comments Blood Pressure 148/83 04/10/2022 3:10 PM OFFICE CORRESPONDENT Pulse 66 04/10/2022 3:10 PM OFFICE CORRESPONDENT Temperature 36.4 ??C (97.5 ??F) 04/10/2022 2:25 PM CS T Respiratory Rate 16 04/10/2022 3:10 PM OFFICE CORRESPONDENT Oxygen Saturation 100% 04/10/2022 3:10 PM OFFICE CORRESPONDENT Inhaled Oxygen Concentration - - Weight 166.7 kg (367 lb 6.4 oz) 023 12:08 PM OFFICE CORRESPONDENT Height 182.9 cm (6') 04/10/2022 12:08 PM OFFICE CORRESPONDENT Body Mass Index 49.83 04/10/2022 12:08 PM OFFICE CORRESPONDENT Plan of Treatment Health Maintenance Due Date Last Done Comments Depression screening for age 12+ 1968 BMI (ht and wt on same day) for age 18+ 1974 Hepatitis C screening for ag e 18-79 1974 Colonoscopy through age 75 2001 Zoster (shingles) series for age 50+ (1 of 2) 2006 Lipids for age 45-75 10/04/2014 10/04/2009 Pneumococcal series for age 65+ (2 of 2 - PCV) 2021 04/14/2000 COVID-19 vaccine series ( season) 2022 04/29/2021, 06/28/2020, 05/31/2020 Influenza for age 65+ 10/10/2023 12/07/2016 , 12/09/2011, 10/02/2010, Additional history exists Tetanus booster 11/30/2023 11/29/2013, 09/11/2008 Tdap Completed 11/29/2013, 09/11/2008 Procedures Procedure Name Priority Date/Time Associated Diagnosis Comments LIPID PANEL Early AM 10/04/2009 6:55 AM CDT from Last 3 Months or Most Recently Relevant to Health Maintenance Results * (ABNORMAL) Lipid Panel - Fasting (10/04/2009 6:55 AM CDT) CHOLESTEROL,TOTAL 137 110 - 199 mg/dL [facility] TRIGLYCERIDES 77 40 - 149 mg/dL [facility] HDL CHOLESTEROL 40(L) >40 mg/dL [facility] CHOL/HDL RATIO 3.43 <[address]51 [facility] LDL CHOLESTEROL 82 <131 mg/dL [facility] PATIENT STATUS Fasting [facility] Blood specimen (specimen) BLOOD SPECIMEN / Unknown 10/04/2009 6:55 AM CDT 10/04/2009 6:30 AM CDT Phi Hernandez MD CHEMISTRY [facility] INTERNAL ZIP [id number] [place] [id number] from Last 3 Months or Most Recently Relevant to Health Maintenance Additional Health Concerns Infection Onset Date Last Indicated MDRO Clearance Comment:Infection Control Note: Hx of MRSA, surveillance criteria met, no need for further testing or isolation precautions. Do not delete or resolve the Infection Flag. 04/06/2022 04/06/2022 Advance Directives * Full Code (Latest Code Status on File) Date Activated Date Inactivated Comments 04/10/2022 11:38 AM 04/10/2022 5:41 PM Question Answer Comments Code Status Discussion: Not Discussed * Full Code Date Activated Date Inactivated Comments 04/24/2018 10:17 PM 05/05/2018 5:22 PM * Full Code Date Activated Date Inactivated Comments 10/12/2009 11:41 AM 10/16/2009 5:41 PM * Full Code Date Activated Date Inactivated Comments 10/04/2009 6:30 AM 10/09/2009 3:50 PM Care Teams [facility] Relationship Specialty Start Date End Date Isaac Logan MD PCP - General Family Practice 04/01/16
[2023-07-19 20:13] LABS: Lactate* 1.2 mmol/L (0.5-1.9)
[2023-07-19 20:14] LABS: Basophils Percent Auto 0.3 % (0.0-3.0); Eosinophils Percent Auto 1.8 % (0.0-7.0); Hematocrit 48.6 % (37.0-53.0); Hemoglobin* 15.9 gm/dL (13.5-17.5); Lymphocytes Percent Auto 34.4 % (20-44); Mean Corpuscular HGB Conc 33 gm/dL (32-36); Mean Corpuscular Hemoglobin 29 pg (26-34); Mean Corpuscular Volume 88 fL (80-100); Monocytes Percent Auto 12.7 % (0.0-11.0); Neutrophils Percent Auto 50.8 % (42.0-72.0); Platelet Count* 169 K/uL (140-440); RDW Coefficient of Variation % 13.4 % (11.5-15.5); Red Blood Count 5.55 m/uL (4.30-5.90); White Blood Count* 3.95 K/uL (4.50-11.00)
[2023-07-19 20:15] LABS: Slide Review Reflex No
--- NOTE | 2023-07-19 20:17 | ED.GENADULT ---
HPI - General Adult General Chief complaint: Altered Mental Status <Tiffany Zaragoza MD - Last Filed: 07/20/23 16:01> Stated complaint: Possible mini-strokes--confusion episodes <Tiffany Zaragoza MD - Last Filed: 07/20/23 16:01> Time Seen by Provider: 07/19/23 18:50 <Tiffany Zaragoza MD - Last Filed: 07/20/23 16:01> Source: patient <Tiffany Zaragoza MD - Last Filed: 07/20/23 16:01> Mode of arrival: ambulatory <Tiffany Zaragoza MD - Last Filed: 07/20/23 16:01> Limitations: no limitations <Tiffany Zaragoza MD - Last Filed: 07/20/23 16:01> History of Present Illness HPI narrative: 67-year-old male presenting today concerned that he is having ?multiple mini strokes?. He states that for the last 2 days he feels the sensation that starts at the top of his head and goes all the way down to his tip of his toes almost like an electric shock. He states that it makes him feel like he has to shake his whole body. This occurs every few seconds. He denies facial asymmetry or facial droop, he denies weakness to any extremity, he denies biting his tongue, denies losing control of bowel or bladder. He denies confusion or altered mental status. He denies headache. He denies feeling dizzy or lightheaded. When the frequency increases his whole face starts to twitch and it becomes difficult for him to speak, his speech then becomes slurred while this is happening and then goes back to normal when it improves. <Tiffany Zaragoza MD - Last Filed: 07/20/23 16:01> Related Data Home medications: Home Medications ?Medication ?Instructions ?Recorded ?Confirmed insulin detemir U-100 100 unit/mL 22 unit subcut QAM 09/09/22 07/19/23 (3 mL) subcutaneous pen (Levemir FlexPen) sennosides 8.6 mg-docusate sodium 2 tab-cap PO BID PRN constipation 09/09/22 07/19/23 50 mg tablet (Stool Softener-Laxative) Previous Rx's ?Medication ?Instructions ?Recorded tadalafil 20 mg tablet 20 mg PO Q OTHER DAY PRN sexual 06/05/22 activity #6 tabs meclizine 25 mg tablet 25 mg PO .Q6 PRN dizziness #30 tabs 09/11/22 blood sugar diagnostic (Easy Touch #50 ea 03/08/23 Test Strip) blood-glucose meter (Blood Glucose #1 ea 03/08/23 Monitoring kit) pen needle, diabetic 32 gauge x #100 ea 03/10/23 1/ (Novofine 32) furosemide 40 mg tablet 40 mg PO BID #180 tabs 05/20/23 magnesium oxide 400 mg (241.3 mg 400 mg PO DAILY #30 tabs 06/18/23 magnesium) tablet apixaban 5 mg tablet (Eliquis) 5 mg PO BID #180 tabs 06/28/23 empagliflozin 25 mg tablet 25 mg PO QAM #90 tabs 06/28/23 (Jardiance) lancets 23 gauge (Easy Touch #100 ea 06/28/23 Safety Lancets) levetiracetam 1,000 mg tablet See Rx Instructions .Route 06/28/23 .COMPLEX #225 tabs metformin 1,000 mg tablet 1,000 mg PO BIDWMEAL #180 tabs 06/28/23 metoprolol tartrate 50 mg tablet 50 mg PO BID #180 tabs 06/28/23 omeprazole 20 mg capsule,delayed 20 mg PO DAILY #90 caps 06/28/23 release tizanidine 4 mg tablet 2 - 4 mg (0.5 - 1 x 4 mg) PO Q8H 06/30/23 PRN for muscle spasm #36 tabs <Tiffany Zaragoza MD - Last Filed: 07/20/23 16:01> Allergies/adverse reactions: Allergies Allergy/AdvReac Type Severity Reaction Status Date / Time No Known Allergies Allergy Unknown Verified 07/19/23 18:49 <Tiffany Zaragoza MD - Last Filed: 07/20/23 16:01> Review of Systems Status of ROS: Reports: 10 or more systems reviewed and unremarkable except as noted in History and below <Tiffany Zaragoza MD - Last Filed: 07/20/23 16:01> [facility] Medical History: Medical History Generalized weakness ?R53.1 - Weakness (ICD-10) Erectile dysfunction ?N52.9 - Male erectile dysfunction, unspecified (ICD-10) Gross hematuria ?R31.0 - Gross hematuria (ICD-10) Sebaceous cyst ?L72.3 - Sebaceous cyst (ICD-10) Edema ?R60.9 - Edema, unspecified (ICD-10) Recurrent pancreatitis Tobacco use ?Z72.0 - Tobacco use (ICD-10) Mastoiditis ?H70.90 - Unspecified mastoiditis, unspecified ear (ICD-10) <Tiffany Zaragoza MD - Last Filed: 07/20/23 16:01> Surgical History: Surgical History History of tonsillectomy and adenoidectomy ?Z90.89 - Acquired absence of other organs (ICD-10) History of laminectomy ?Z98.890 - Other specified postprocedural states (ICD-10) History of esophageal surgery ?Z98.890 - Other specified postprocedural states (ICD-10) <Tiffany Zaragoza MD - Last Filed: 07/20/23 16:01> Social History: Social History Narrative: . Lives independently. Smoked 40-50 years, 1 pack every 3 days. Quit all alcohol almost a year ago per Dr. Logan's recommendation. Uses marajuana daily to help with sleep. DNR/DNI. What is your current living situation?: I presently have a place to live Problems where you live: mold Problems where you live details: Mold in the basement In the past 12 months, utilities in danger of being shut off: no In past 12 months, lack of transportation kept you from medical appts, meetings, work, or getting things needed for daily living: no In the past 12 mos, have been you worried that your food would run out before you had money to buy more?: sometimes true In the past 12 mos, the food you bought just didn't last and you didn't have money to buy more?: sometimes true Highest level of school completed/degree received: Associate degree: occupational, technical, vocational program Smoking Status: Former smoker Do you use any of these nicotine containing products: None Second hand tobacco smoke exposure: No How often do you have a drink containing alcohol: never How often do you have six or more drinks on one occasion: Never AUDIT-C Alcohol total score: 0 Non-prescribed substance use: marijuana (any form) Non-prescribed substance use details: daily Caffeine: Yes (6 cups daily) How often does anyone, including family, friends and others, physically hurt you: never How often does anyone, including family, friends and others, insult or talk down to you: never How often does anyone, including family, friends and others, threaten you with harm: never How often does anyone, including family, friends and others, scream or curse at you: never service: No <Tiffany Zaragoza MD - Last Filed: 07/20/23 16:01> Exam Narrative: Exam Narrative: Obese, well-developed patient in no acute distress. Alert and oriented x3. Answers questions appropriately. Mood and affect are appropriate. Thoughts are goal oriented and rational. No tangential or magical thinking noted. Patient speaks in full sentences without needing to catch his breath. With when the facial twitching increases his speech does become slurred but this quickly resolves when the twitching stops. His whole body twitches frequently while we talk. Continues to touch while he is distracted. HEENT: Normocephalic atraumatic. Pupils are equally round reactive to light. Extraocular muscles are intact. Conjunctivae are moist without any icterus noted. Moist mucous membranes. Posterior pharynx is normal. Neck is soft without any lymphadenopathy or thyromegaly. No masses are appreciated. Cardiovascular: Heart is regular rate and rhythm S1 and S2 are present without any murmurs. Lungs: Clear to auscultation bilaterally no wheezes rhonchi or rales are appreciated. Patient takes deep breaths without any discomfort. Abdomen: Soft and nontender nondistended with normal bowel sounds. Extremities: Bilateral lower extremities have 2+ pitting edema. Skin: Well perfused. Strength is 5/5 of the upper and lower extremities. Cranial nerves 3-12 are normal. Liyrui-rq-laob is normal. There is no nystagmus either horizontally or vertically. He has frequent whole body shakes that last a few seconds <Tiffany Zaragoza MD - Last Filed: 07/20/23 16:01> Const: Vital Signs, click to edit/add: Vital Signs - 24 hr 07/19/23 18:49 07/19/23 18:58 07/19/23 19:00 Temperature 97.6 F Pulse Rate 78 76 Pulse Rate [Pulse Oximeter] 75 Respiratory Rate 20 Blood Pressure Blood Pressure [Le ft Upper Arm] 138/84 Pulse Oximetry 94 99 99 Oxygen Delivery Me thod Room Air Oxygen Flow Rate 07/19/23 19:02 07/19/23 19:17 07/19/23 19:22 Temperature Pulse Rate 72 78 Pulse Rate [Pulse Oximeter] Respiratory Rate Blood Pressure 148/86 H 135/89 Blood Pressure [Le ft Upper Arm] Pulse Oximetry 100 99 Oxygen Delivery Me thod Oxygen Flow Rate 07/19/23 19:30 07/19/23 19:32 07/19/23 19:47 Temperature Pulse Rate 74 79 Pulse Rate [Pulse Oximeter] Respiratory Rate Blood Pressure 126/83 150/97 H Blood Pressure [Le ft Upper Arm] Pulse Oximetry 93 94 Oxygen Delivery Me thod Oxygen Flow Rate 07/19/23 20:14 07/19/23 20:15 07/19/23 20:18 Temperature Pulse Rate 230 H 78 Pulse Rate [Pulse Oximeter] Respiratory Rate Blood Pressure Blood Pressure [Le ft Upper Arm] Pulse Oximetry 81 L 97 96 Oxygen Delivery Me thod Oxygen Flow Rate 07/19/23 20:27 07/19/23 20:30 07/19/23 20:35 Temperature Pulse Rate 75 67 71 Pulse Rate [Pulse Oximeter] Respiratory Rate Blood Pressure 100/77 160/99 H Blood Pressure [Le ft Upper Arm] Pulse Oximetry 98 94 96 Oxygen Delivery Me thod Oxygen Flow Rate 07/19/23 20:45 07/19/23 20:47 07/19/23 20:51 Temperature Pulse Rate 72 71 74 Pulse Rate [Pulse Oximeter] Respiratory Rate Blood Pressure 174/125 H 178/163 H Blood Pressure [Le ft Upper Arm] Pulse Oximetry 99 98 96 Oxygen Delivery Me thod Oxygen Flow Rate 07/19/23 21:00 07/19/23 21:02 07/19/23 21:15 Temperature Pulse Rate 78 75 73 Pulse Rate [Pulse Oximeter] Respiratory Rate Blood Pressure 160/100 H Blood Pressure [Le ft Upper Arm] Pulse Oximetry 92 96 92 Oxygen Delivery Me thod Oxygen Flow Rate 07/19/23 21:18 07/19/23 21:30 07/19/23 21:32 Temperature Pulse Rate 74 75 77 Pulse Rate [Pulse Oximeter] Respiratory Rate Blood Pressure 159/140 H 157/105 H Blood Pressure [Le ft Upper Arm] Pulse Oximetry 96 96 97 Oxygen Delivery Me thod Oxygen Flow Rate 07/19/23 21:33 07/19/23 21:45 07/19/23 21:47 Temperature Pulse Rate 73 72 75 Pulse Rate [Pulse Oximeter] Respiratory Rate Blood Pressure 149/106 H Blood Pressure [Le ft Upper Arm] Pulse Oximetry 97 92 98 Oxygen Delivery Me thod Oxygen Flow Rate 07/19/23 22:00 07/19/23 22:15 07/19/23 22:18 Temperature Pulse Rate 79 76 75 Pulse Rate [Pulse Oximeter] Respiratory Rate Blood Pressure 149/126 H Blood Pressure [Le ft Upper Arm] Pulse Oximetry 96 94 96 Oxygen Delivery Me thod Oxygen Flow Rate 07/19/23 22:30 07/19/23 22:33 07/19/23 22:45 Temperature Pulse Rate 77 76 75 Pulse Rate [Pulse Oximeter] Respiratory Rate Blood Pressure 173/130 H Blood Pressure [Le ft Upper Arm] Pulse Oximetry 97 94 99 Oxygen Delivery Me thod Oxygen Flow Rate 07/19/23 22:47 07/19/23 22:48 07/19/23 23:00 Temperature Pulse Rate 83 67 75 Pulse Rate [Pulse Oximeter] Respiratory Rate Blood Pressure 179/116 H Blood Pressure [Le ft Upper Arm] Pulse Oximetry 95 95 99 Oxygen Delivery Me thod Oxygen Flow Rate 07/19/23 23:48 07/20/23 00:24 07/20/23 00:49 Temperature 97.8 F Pulse Rate Pulse Rate [Pulse Oximeter] 78 77 80 Respiratory Rate 16 12 14 Blood Pressure Blood Pressure [Le ft Upper Arm] 178/100 H 164/100 H 160/100 H Pulse Oximetry 94 96 98 Oxygen Delivery Me thod Nasal Cannula Nasal Cannula Nasal Cannula Oxygen Flow Rate 2 2 2 07/20/23 01:26 07/20/23 02:33 Temperature Pulse Rate Pulse Rate [Pulse Oximeter] 80 88 Respiratory Rate 16 18 Blood Pressure Blood Pressure [Le ft Upper Arm] 200/112 H 170/114 H Pulse Oximetry 94 96 Oxygen Delivery Me thod OxyMask Room Air Oxygen Flow Rate 2 <Tiffany Zaragoza MD - Last Filed: 07/20/23 16:01> Vital Signs, click to edit/add: Vital Signs - 24 hr 07/19/23 18:49 07/19/23 18:58 07/19/23 19:00 Temperature 97.6 F Pulse Rate 78 76 Pulse Rate [Pulse Oximeter] 75 Respiratory Rate 20 Blood Pressure Blood Pressure [Le ft Upper Arm] 138/84 Pulse Oximetry 94 99 99 Oxygen Delivery Me thod Room Air Oxygen Flow Rate 07/19/23 19:02 07/19/23 19:17 07/19/23 19:22 Temperature Pulse Rate 72 78 Pulse Rate [Pulse Oximeter] Respiratory Rate Blood Pressure 148/86 H 135/89 Blood Pressure [Le ft Upper Arm] Pulse Oximetry 100 99 Oxygen Delivery Me thod Oxygen Flow Rate 07/19/23 19:30 07/19/23 19:32 07/19/23 19:47 Temperature Pulse Rate 74 79 Pulse Rate [Pulse Oximeter] Respiratory Rate Blood Pressure 126/83 150/97 H Blood Pressure [Le ft Upper Arm] Pulse Oximetry 93 94 Oxygen Delivery Me thod Oxygen Flow Rate 07/19/23 20:14 07/19/23 20:15 07/19/23 20:18 Temperature Pulse Rate 230 H 78 Pulse Rate [Pulse Oximeter] Respiratory Rate Blood Pressure Blood Pressure [Le ft Upper Arm] Pulse Oximetry 81 L 97 96 Oxygen Delivery Me thod Oxygen Flow Rate 07/19/23 20:27 07/19/23 20:30 07/19/23 20:35 Temperature Pulse Rate 75 67 71 Pulse Rate [Pulse Oximeter] Respiratory Rate Blood Pressure 100/77 160/99 H Blood Pressure [Le ft Upper Arm] Pulse Oximetry 98 94 96 Oxygen Delivery Me thod Oxygen Flow Rate 07/19/23 20:45 07/19/23 20:47 07/19/23 20:51 Temperature Pulse Rate 72 71 74 Pulse Rate [Pulse Oximeter] Respiratory Rate Blood Pressure 174/125 H 178/163 H Blood Pressure [Le ft Upper Arm] Pulse Oximetry 99 98 96 Oxygen Delivery Me thod Oxygen Flow Rate 07/19/23 21:00 07/19/23 21:02 07/19/23 21:15 Temperature Pulse Rate 78 75 73 Pulse Rate [Pulse Oximeter] Respiratory Rate Blood Pressure 160/100 H Blood Pressure [Le ft Upper Arm] Pulse Oximetry 92 96 92 Oxygen Delivery Me thod Oxygen Flow Rate 07/19/23 21:18 07/19/23 21:30 07/19/23 21:32 Temperature Pulse Rate 74 75 77 Pulse Rate [Pulse Oximeter] Respiratory Rate Blood Pressure 159/140 H 157/105 H Blood Pressure [Le ft Upper Arm] Pulse Oximetry 96 96 97 Oxygen Delivery Me thod Oxygen Flow Rate 07/19/23 21:33 07/19/23 21:45 07/19/23 21:47 Temperature Pulse Rate 73 72 75 Pulse Rate [Pulse Oximeter] Respiratory Rate Blood Pressure 149/106 H Blood Pressure [Le ft Upper Arm] Pulse Oximetry 97 92 98 Oxygen Delivery Me thod Oxygen Flow Rate 07/19/23 22:00 07/19/23 22:15 07/19/23 22:18 Temperature Pulse Rate 79 76 75 Pulse Rate [Pulse Oximeter] Respiratory Rate Blood Pressure 149/126 H Blood Pressure [Le ft Upper Arm] Pulse Oximetry 96 94 96 Oxygen Delivery Me thod Oxygen Flow Rate 07/19/23 22:30 07/19/23 22:33 07/19/23 22:45 Temperature Pulse Rate 77 76 75 Pulse Rate [Pulse Oximeter] Respiratory Rate Blood Pressure 173/130 H Blood Pressure [Le ft Upper Arm] Pulse Oximetry 97 94 99 Oxygen Delivery Me thod Oxygen Flow Rate 07/19/23 22:47 07/19/23 22:48 07/19/23 23:00 Temperature Pulse Rate 83 67 75 Pulse Rate [Pulse Oximeter] Respiratory Rate Blood Pressure 179/116 H Blood Pressure [Le ft Upper Arm] Pulse Oximetry 95 95 99 Oxygen Delivery Me thod Oxygen Flow Rate 07/19/23 23:48 07/20/23 00:24 07/20/23 00:49 Temperature 97.8 F Pulse Rate Pulse Rate [Pulse Oximeter] 78 77 80 Respiratory Rate 16 12 14 Blood Pressure Blood Pressure [Le ft Upper Arm] 178/100 H 164/100 H 160/100 H Pulse Oximetry 94 96 98 Oxygen Delivery Me thod Nasal Cannula Nasal Cannula Nasal Cannula Oxygen Flow Rate 2 2 2 07/20/23 01:26 07/20/23 02:33 Temperature Pulse Rate Pulse Rate [Pulse Oximeter] 80 88 Respiratory Rate 16 18 Blood Pressure Blood Pressure [Le ft Upper Arm] 200/112 H 170/114 H Pulse Oximetry 94 96 Oxygen Delivery Me thod OxyMask Room Air Oxygen Flow Rate 2 <Maddy Lobato MD - Last Filed: 07/19/23 23:55> Course Course ED Course: CBCs unremarkable. Chemistries are unremarkable. Normal lactate. Normal magnesium. UA shows 2+ protein and 2+ glucose. Normal CRP. Normal LFTs. TSH and triple swab pending. EKG, read by me, shows atrial fibrillation with a pulse of 77. This is not new, patient is anticoagulated with apixaban. I spoke to Dr. Moreno, neurology at [facility] who recommended transfer for continuous video EEG monitoring and an epilepsy consult. She also recommended an extra 1000 mg of Keppra oral and IV Ativan right now. Unfortunately, there are no beds available at [facility], therefore patient will be placed on a wait list. In the meantime [facility] was not accepting anyone but trauma, we also called [facility] and [facility]: Both also declined the patient secondary to capacity. At this time we will await bed placement at [facility]. Care transferred to oncoming physician. <Tiffany Zaragoza MD - Last Filed: 07/20/23 16:01> Vital Signs Vital signs: Initial Vital Signs Temperature 97.6 F 07/19/23 18:49 Temperature Source Temporal Artery Scan 07/19/23 18:49 Pulse Rate 75 07/19/23 18:49 Respiratory Rate 20 07/19/23 18:49 Blood Pressure 138/84 07/19/23 18:49 Blood Pressure Mean 102 07/19/23 18:49 Blood Pressure Position Semi-Fowlers 07/19/23 18:49 Pulse Oximetry 94 07/19/23 18:49 Oxygen Delivery Method Room Air 07/19/23 18:49 Vital Signs Temperature 97.6 F 07/19/23 18:49 Pulse Rate 75 07/19/23 18:49 Respiratory Rate 20 07/19/23 18:49 Blood Pressure 138/84 07/19/23 18:49 Pulse Oximetry 94 07/19/23 18:49 Oxygen Delivery Method Room Air 07/19/23 18:49 Temperature 97.8 F 07/19/23 23:48 Pulse Rate 88 07/20/23 02:33 Respiratory Rate 18 07/20/23 02:33 Blood Pressure 170/114 H 07/20/23 02:33 Pulse Oximetry 96 07/20/23 02:33 Oxygen Delivery Method Room Air 07/20/23 02:33 Oxygen Flow Rate 2 07/20/23 01:26 <Tiffany Zaragoza MD - Last Filed: 07/20/23 16:01> Initial Vital Signs Temperature 97.6 F 07/19/23 18:49 Temperature Source Temporal Artery Scan 07/19/23 18:49 Pulse Rate 75 07/19/23 18:49 Respiratory Rate 20 07/19/23 18:49 Blood Pressure 138/84 07/19/23 18:49 Blood Pressure Mean 102 07/19/23 18:49 Blood Pressure Position Semi-Fowlers 07/19/23 18:49 Pulse Oximetry 94 07/19/23 18:49 Oxygen Delivery Method Room Air 07/19/23 18:49 Vital Signs Temperature 97.6 F 07/19/23 18:49 Pulse Rate 75 07/19/23 18:49 Respiratory Rate 20 07/19/23 18:49 Blood Pressure 138/84 07/19/23 18:49 Pulse Oximetry 94 07/19/23 18:49 Oxygen Delivery Method Room Air 07/19/23 18:49 Temperature 97.8 F 07/19/23 23:48 Pulse Rate 88 07/20/23 02:33 Respiratory Rate 18 07/20/23 02:33 Blood Pressure 170/114 H 07/20/23 02:33 Pulse Oximetry 96 07/20/23 02:33 Oxygen Delivery Method Room Air 07/20/23 02:33 Oxygen Flow Rate 2 07/20/23 01:26 <Maddy Lobato MD - Last Filed: 07/19/23 23:55> Medications Administered Medications: Discontinued Medications Generic Name Dose Route Start Last Admin Trade Name Freq PRN Reason Stop Dose Admin Levetiracetam 1,000 mg 07/19/23 20:33 07/19/23 20:56 Levetiracetam 500 Mg Tablet PO 07/19/23 20:34 1,000 mg ONCE ONE Administration Lorazepam 0.5 mg 07/19/23 20:35 07/19/23 20:50 Lorazepam 2 Mg/Ml Inj IVP 07/19/23 20:36 0.5 mg ONCE ONE Administration <Tiffany Zaragoza MD - Last Filed: 07/20/23 16:01> Discontinued Medications Generic Name Dose Route Start Last Admin Trade Name Freq PRN Reason Stop Dose Admin Levetiracetam 1,000 mg 07/19/23 20:33 07/19/23 20:56 Levetiracetam 500 Mg Tablet PO 07/19/23 20:34 1,000 mg ONCE ONE Administration Lorazepam 0.5 mg 07/19/23 20:35 07/19/23 20:50 Lorazepam 2 Mg/Ml Inj IVP 07/19/23 20:36 0.5 mg ONCE ONE Administration <Maddy Lobato MD - Last Filed: 07/19/23 23:55> Medical Decision Making MDM Narrative Medical decision making narrative: Dr. Zaragoza has signed this patient out to me. I was asked to follow up on the TSH, triple swab as well as the affects of Keppra and Ativan given for suspected seizure. Prior to her departure she was instructed by Neurology to give patient additional dose of Keppra 1000 mg as well as Ativan 0.5 mg. This has improved the muscular ticks and spasms at this gentleman is experiencing but has not completely resolve them. He is hungry at this time. Mentating normally. We will allow him to eat and drink. Currently awaiting on [facility] phone call as he is 2nd on the list for transfer. Will plan on 2nd dose of Ativan 0.5 mg if he still has symptoms after eating. TSH and triple swab are within normal limits/negative. I do visit with patient after easy eating and the movement spasm appears to be much improved. He is resting comfortably. I had the pleasure speak with who has accepted the patient to neurology at [facility]. There is a 2 hour wait. 1. Seizure-partial/complex as this does involve multiple sites and patient is fully 0 alert when this is happening. Patient improved after additional dose of Keppra 1 g as well as Ativan 0.5 mg. 2. History of atrial fibrillation-anticoagulated. 3. History of CVA with most recent MRI in September of 2022 4. Disposition-ground ambulance ALS transfer to [facility]. Dr. Espinosa accepting. <Maddy Lobato MD - Last Filed: 07/19/23 23:55> Medical Records Medical records reviewed: Yes I reviewed the patient's medical records <Maddy Lobato MD - Last Filed: 07/19/23 23:55> Lab Data Lab results reviewed: Yes I reviewed the patient's lab results <Maddy Lobato MD - Last Filed: 07/19/23 23:55> Labs: Lab Results 07/19/23 07/19/23 07/19/23 Range/Units 19:29 20:11 20:17 WBC 3.95 L (4.50-11.00) K/uL RBC 5.55 (4.30-5.90) m/uL Hgb 15.9 (13.5-17.5) gm/dL Hct 48.6 (37.0-53.0) % MCV 88 (80-100) fL MCH 29 (26-34) pg MCHC 33 (32-36) gm/dL RDW Coeff of Ramona 13.4 (11.5-15.5) % Plt Count 169 (140-440) K/uL Neut % (Auto) 50.8 (42.0-72.0) % Lymph % (Auto) 34.4 (20-44) % [place] % (Auto) 12.7 H (0.0-11.0) % Eos % (Auto) 1.8 (0.0-7.0) % Baso % (Auto) 0.3 (0.0-3.0) % Neut # (Auto) 2.00 (1.7-7.0) K/uL Lymph # (Auto) 1.40 (0.90-2.90) K/uL [place] # (Auto) 0.50 (0.00-0.90) K/UL Eos # (Auto) 0.10 (0.00-0.50) K/uL Baso # (Auto) 0.00 (0.00-0.30) K/uL Abs Immat Gran (auto) 0.00 (0.00-0.30) K/uL Imm/Tot Granulo (auto) 0.0 % Sodium 136 (135-149) mmol/L Potassium 4.3 (3.6-5.1) mmol/L Chloride 104 (96-114) mmol/L Carbon Dioxide 28 (20-32) mmol/L Anion Gap 4 L (7-15) mEq/L BUN 13 (7-30) mg/dL Creatinine 0.9 (0.5-1.5) mg/dL Estimated Creat Clear 79.76 Estimated GFR 94 ml/min Glucose 164 H (60-115) mg/dL Lactate 1.2 (0.5-1.9) mmol/L Calcium 8.8 (8.4-10.6) mg/dL Magnesium 1.9 (1.5-2.6) mg/dL Total Bilirubin 0.9 (0.1-1.5) mg/dL Direct Bilirubin 0.4 (0.0-0.5) mg/dL AST 20 (12-35) U/L ALT 14 (4-50) U/L Alkaline Phosphatase 53 (40-150) U/L Troponin I 0.02 (0.01-0.04) ng/mL C-Reactive Protein < 0.5 L (0.5-1.0) mg/dL Total Protein 6.8 (6.0-8.3) g/dL Albumin 4.3 (3.3-5.0) g/dL TSH 1.750 (0.270-4.20) uIU/mL Urine Color Yellow (Yellow) Urine Appearance Clear (Clear) Urine pH 6.0 (5.0-8.5) Ur Specific Willard 1.015 (1.000-1.030) Urine Protein 2+ A (Negative) Urine Glucose (UA) 2+ A (Negative) Urine Ketones Negative (Negative) Urine Blood Negative (Negative) Urine Nitrite Negative (Negative) Urine Bilirubin Negative (Negative) Urine Urobilinogen 0.2 (0.2-1.0) Ur Leukocyte Esterase Negative (Negative) Urine RBC 0-2 (0-2) Urine WBC 0-2 (0-5) Ur Squamous Epith Cells None (None-Few) Urine Bacteria None (None) SARS-CoV-2 (PCR) Negative SARS-CoV-2 (Negative) Influenza Type A (PCR) Negative PCR FLU A (Negative) Influenza Type B (PCR) Negative PCR FLU B (Negative) RSV (PCR) Negative PCR RSV (Negative) <Tiffany Zaragoza MD - Last Filed: 07/20/23 16:01> Lab Results 07/19/23 07/19/23 07/19/23 Range/Units 19:29 20:11 20:17 WBC 3.95 L (4.50-11.00) K/uL RBC 5.55 (4.30-5.90) m/uL Hgb 15.9 (13.5-17.5) gm/dL Hct 48.6 (37.0-53.0) % MCV 88 (80-100) fL MCH 29 (26-34) pg MCHC 33 (32-36) gm/dL RDW Coeff of Ramona 13.4 (11.5-15.5) % Plt Count 169 (140-440) K/uL Neut % (Auto) 50.8 (42.0-72.0) % Lymph % (Auto) 34.4 (20-44) % [place] % (Auto) 12.7 H (0.0-11.0) % Eos % (Auto) 1.8 (0.0-7.0) % Baso % (Auto) 0.3 (0.0-3.0) % Neut # (Auto) 2.00 (1.7-7.0) K/uL Lymph # (Auto) 1.40 (0.90-2.90) K/uL [place] # (Auto) 0.50 (0.00-0.90) K/UL Eos # (Auto) 0.10 (0.00-0.50) K/uL Baso # (Auto) 0.00 (0.00-0.30) K/uL Abs Immat Gran (auto) 0.00 (0.00-0.30) K/uL Imm/Tot Granulo (auto) 0.0 % Sodium 136 (135-149) mmol/L Potassium 4.3 (3.6-5.1) mmol/L Chloride 104 (96-114) mmol/L Carbon Dioxide 28 (20-32) mmol/L Anion Gap 4 L (7-15) mEq/L BUN 13 (7-30) mg/dL Creatinine 0.9 (0.5-1.5) mg/dL Estimated Creat Clear 79.76 Estimated GFR 94 ml/min Glucose 164 H (60-115) mg/dL Lactate 1.2 (0.5-1.9) mmol/L Calcium 8.8 (8.4-10.6) mg/dL Magnesium 1.9 (1.5-2.6) mg/dL Total Bilirubin 0.9 (0.1-1.5) mg/dL Direct Bilirubin 0.4 (0.0-0.5) mg/dL AST 20 (12-35) U/L ALT 14 (4-50) U/L Alkaline Phosphatase 53 (40-150) U/L Troponin I 0.02 (0.01-0.04) ng/mL C-Reactive Protein < 0.5 L (0.5-1.0) mg/dL Total Protein 6.8 (6.0-8.3) g/dL Albumin 4.3 (3.3-5.0) g/dL TSH 1.750 (0.270-4.20) uIU/mL Urine Color Yellow (Yellow) Urine Appearance Clear (Clear) Urine pH 6.0 (5.0-8.5) Ur Specific Willard 1.015 (1.000-1.030) Urine Protein 2+ A (Negative) Urine Glucose (UA) 2+ A (Negative) Urine Ketones Negative (Negative) Urine Blood Negative (Negative) Urine Nitrite Negative (Negative) Urine Bilirubin Negative (Negative) Urine Urobilinogen 0.2 (0.2-1.0) Ur Leukocyte Esterase Negative (Negative) Urine RBC 0-2 (0-2) Urine WBC 0-2 (0-5) Ur Squamous Epith Cells None (None-Few) Urine Bacteria None (None) SARS-CoV-2 (PCR) Negative SARS-CoV-2 (Negative) Influenza Type A (PCR) Negative PCR FLU A (Negative) Influenza Type B (PCR) Negative PCR FLU B (Negative) RSV (PCR) Negative PCR RSV (Negative) <Maddy Lobato MD - Last Filed: 07/19/23 23:55> Discharge Plan Discharge Clinical Impression: Seizure disorder Atrial fibrillation Qualifiers: Atrial fibrillation type: paroxysmal Qualified Code(s): I48.0 - Paroxysmal atrial fibrillation <Tiffany Zaragoza MD - Last Filed: 07/20/23 16:01> Patient Disposition: Xfer [facility] <Tiffany Zaragoza MD - Last Filed: 07/20/23 16:01> Discharge Location: [facility] <Tiffany Zaragoza MD - Last Filed: 07/20/23 16:01> Condition: Improved <Tiffany Zaragoza MD - Last Filed: 07/20/23 16:01> Prescriptions: No Action Eliquis 5 mg tablet 5 mg PO BID Qty: 180 4RF Jardiance 25 mg tablet 25 mg PO QAM Qty: 90 3RF (DME) Easy Touch Safety Lancets 23 gauge misc See Rx Instructions .Route Qty: 100 4RF Rx Instructions: TEST Once DAILY levetiracetam 1,000 mg tablet See Rx Instructions .ROUTE .COMPLEX Qty: 225 3RF Dose Instruction: TAKE 1 TABLET BY MOUTH IN THE MORNING AND 1.5 TABLETS AT BEDTIME Rx Instructions: TAKE 1 TABLET BY MOUTH IN THE MORNING AND 1.5 TABLETS AT BEDTIME metformin 1,000 mg tablet 1,000 mg PO BIDWMEAL Qty: 180 3RF metoprolol tartrate 50 mg tablet 50 mg PO BID Qty: 180 3RF omeprazole 20 mg capsule,delayed release(DR/EC) 20 mg PO DAILY Qty: 90 3RF sennosides-docusate sodium [Stool Softener-Laxative] 8.6-50 mg Tablet 2 tab-cap PO BID PRN (Reason: constipation) Levemir FlexPen 100 unit/mL (3 mL) Insulin Pen 22 unit subcut QAM tadalafil 20 mg tablet 20 mg PO Q OTHER DAY PRN (Reason: sexual activity) Qty: 6 5RF meclizine 25 mg tablet 25 mg PO .Q6 PRN (Reason: dizziness) Qty: 30 2RF (DME) blood-glucose meter [Blood Glucose Monitoring] Kit See Rx Instructions .Route Qty: 1 0RF Rx Instructions: TEST BID (DME) Easy Touch Test Strip Strip See Rx Instructions .Route Qty: 50 4RF Rx Instructions: TEST TWICE DAILY (DME) pen needle, diabetic [Novofine 32] 32 gauge x 1/4 needle See Rx Instructions .Route Qty: 100 3RF Rx Instructions: ONCE DAILY furosemide 40 mg tablet 40 mg PO BID Qty: 180 1RF magnesium oxide 400 mg (241.3 mg magnesium) tablet 400 mg PO DAILY Qty: 30 6RF tizanidine 4 mg tablet 2 - 4 mg PO Q8H PRN (Reason: for muscle spasm) Qty: 36 0RF <Tiffany Zaragoza MD - Last Filed: 07/20/23 16:01> Stand Alone Forms: MyHealth Info Instructions <Tiffany Zaragoza MD - Last Filed: 07/20/23 16:01>
[2023-07-19 20:29] LABS: Chloride* 104 mmol/L (96-114)
[2023-07-19 20:30] LABS: Albumin* 4.3 g/dL (3.3-5.0); Sodium* 136 mmol/L (135-149)
[2023-07-19 20:31] LABS: Potassium* 4.3 mmol/L (3.6-5.1)
[2023-07-19 20:33] LABS: Creatinine* 0.9 mg/dL (0.5-1.5); Est. Creatinine Clearance* 79.76; Estimated Glomerular Filt Rate 94 ml/min
[2023-07-19 20:34] LABS: Alanine Aminotransferase* 14 U/L (4-50); Alkaline Phosphatase* 53 U/L (40-150); Anion Gap 4 mEq/L (7-15); Aspartate Amino Transferase* 20 U/L (12-35); Bilirubin Direct* 0.4 mg/dL (0.0-0.5); Bilirubin Total* 0.9 mg/dL (0.1-1.5); Blood Urea Nitrogen* 13 mg/dL (7-30); Calcium* 8.8 mg/dL (8.4-10.6); Carbon Dioxide* 28 mmol/L (20-32); Glucose* 164 mg/dL (60-115); Magnesium* 1.9 mg/dL (1.5-2.6); Total Protein* 6.8 g/dL (6.0-8.3)
[2023-07-19 20:37] LABS: C Reactive Protein* < 0.5 mg/dL (0.5-1.0)
[2023-07-19 20:44] LABS: Appearance Urine Clear (Clear); Bilirubin Urine Negative (Negative); Blood Urine Negative (Negative); Color Urine Yellow (Yellow); Glucose Urine 2+ (Negative); Ketones Urine Negative (Negative); Leukocyte Esterase Urine Negative (Negative); Nitrite Urine Negative (Negative); Protein Urine 2+ (Negative); Specific Gravity Urine 1.015 (1.000-1.030); Urobilinogen Urine 0.2 (0.2-1.0)
[2023-07-19 20:45] LABS: Troponin I* 0.02 ng/mL (0.01-0.04)
[2023-07-19 20:48] LABS: RBC Urine 0-2 (0-2); WBC Urine 0-2 (0-5)
[2023-07-19] MEDS: LORazepam 2 MG/ML inj 0.5 MG IVP (20:50)
[2023-07-19] MEDS: levETIRAcetam 500 MG TABLET 1000 MG PO (20:56)
[2023-07-19 21:07] LABS: PCR FLU A Negative PCR FLU A (Negative); PCR FLU B Negative PCR FLU B (Negative); PCR RSV Negative PCR RSV (Negative); SARS PCR* Negative SARS-CoV-2 (Negative)
--- NOTE | 2023-07-19 23:49 | PC.NURSE ---
Pt snoring, oxygen sats down to 86-87% on room air while asleep. Put on 2L oxygen per NC. Sats up to 91-92%.
[2023-07-20 00:24] VITALS: BP 164/100; PULSE 77; RESP 12; O2SAT 96
[2023-07-20 00:49] VITALS: BP 160/100; PULSE 80; RESP 14; O2SAT 98
[2023-07-20 01:26] VITALS: BP 200/112; PULSE 80; RESP 16; O2SAT 94
[2023-07-20 02:33] VITALS: BP 170/114; PULSE 88; RESP 18; O2SAT 96
--- NOTE | 2023-07-20 02:34 | PC.NURSE ---
Physician informed of pt's VS, transfer crew here. Report given to MAHESH Shelton at [facility]. Will call pt's son in am to filler picker wheelchair.
--- NOTE | 2023-07-20 14:06 | ED.NURSE ---
Spoke with son to update him on transfer of patient. 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
== END 2023-07-20 02:30 | disposition short-term general hospital (02) ==
PROVIDERS: Family Medicine; Emergency Provider Family Medicine; PCP Family Medicine
DX: G40.909 Epilepsy, unspecified, not intractable, without status epilepticus (principal); I48.0 Paroxysmal atrial fibrillation
CPT/HCPCS: 36415; 80048; 80076; 80177; 81001; 83605; 83735; 84443; 84484; 85025; 86140; 87086; 87631; 93005; 94761; 96374; 99284; 99285; A9270; J2060

== ENCOUNTER 2023-07-20 02:05 | Outpatient (CLI) | payer MEDICARE, BC, MEDICAID, SELFPAY ==
--- OUTSIDE RECORDS SUMMARY | 2023-07-23 15:46 | XMS_ITS | Data Portability ---
Author Organization [place] [facility] Address [address] [place] [address] Assessment No assessment recorded. Plan of Treatment Reminders Order Date Submit Date Provider Last Modified By Organization Details Last Modified Time Details Appointments None recorded. Lab urinalysis, dipstick 2022 023 [email or web address] 30 [facility], [address], [place], [address], 3 11:36:38 Referral None recorded. Procedures None [...] Available [facility] [address], [place], [address], 03/26/2022 11:36:14 03/26/19 23 03/26/2022 urina lysis , dipst ick pH-Status 6.0 Not Available [facility] [address], [place], [address], 03/26/2022 11:36:14 03/26/19 23 03/26/2022 urina lysis , dipst ick Nitrates-Sta tus negati ve Not Available [facility] [address], [place], [address], 03/26/2022 11:36:14 03/26/19 23 03/26/2022 urina lysis , dipst ick Blood-Status Large Not Available [facility] [address], [place], [address], 03/26/2022 11:36:14 03/26/19 23 03/26/2022 urina lysis , dipst ick Leuko-Status Negati ve Not Available [facility] [address], [place], [address], 03/26/2022 11:36:14 Result Notes None recorded. Problems Name Status Onset Date Resolution Date Notes Provider Name and Address Organization Details Recorded Time Malignant tumor of prostate Active 05/06/19 17 C61 : Malignant neoplasm of prostate Not Available [facility] 07/27/2019 02:07:27 Carcinoma of prostate Active 03/26/19 23 Baron Burt MD [address] [place] [address],[address], [address], [facility] 03/26/2022 11:52:55 Blood in urine Active 03/26/19 23 Baron Burt MD [address] [place] [address],[address], [address], [facility] 03/26/2022 11:55:16 Problem Notes None recorded. Procedures Surgical History Date Name Laterality Status Provider Name and Address Organization Details Recorded Time procedure on back completed Silvana yeung [facility] 03/26/2022 11:36:06 Imaging Results None [...] Updated DateTime 03/26/2022 182.88 cm 52.9 kg/m2 791484.02 g Silvana Mckeon [facility] 03/26/2022 11:34:15 Social History Question Answer Notes LastModified by Organizat ion Details LastModified Time Tobacco Smoking Status Former Smoker Silvana yeung [facility] 03/26/2022 11:35:06 What Is Your Level Of Alcohol Consumption? None [email or web address] Information not available 03/26/2022 What Is Your Level Of Caffeine Consumption? Moderate [email or web address] Information not available 03/26/2022 What Was The Date Of Your Most Recent Tobacco Screening? 03/26/2022 [email or web address] Information not available 03/26/2022 Do You Use Any Illicit Or Recreational Drugs? No Information not available 03/26/2022 Sex: Male Functional Status None recorded. Mental Status None recorded. Family History Nothing Reported. Medical History Condition Response High Blood Pressure Y Cancer Y GERD/Acid Reflux Y Diabetes Y Immunizations Vaccine Type Date Status Provider Name and Address Organization Details Recorded Time pneumococcal polysaccharide PPV23 04/14/2000 completed Silvana yeung [facility] 03/26/2022 11:28:45 Past Encounters Encounter ID Performer Location Encounter Start Date Encounter Closed Date Diagnosis/Indication Diagnosis SNOMED-CT Code [id number] Baron Burt MD [facility] [address] [place], [place] [address]. [place] [id number] 03/26/2022 11:11:02 03/30/2022 13:49:57 Blood in urine [id number] Carcinoma of prostate 25 [id number] Health Concerns Section Related Observation LastModified by Organization Detai ls LastModified Time None Recorded Concern Status LastModified by Organization Details LastModified Time None Recorded Advance Directives Directive None Recorded Payers Encounter Date Sequence Insurance Name Policy Number Policy Perdomo Covered Member ID Perdomo Member ID Guarantor Name 03/26/2022 1 [place] Anoop Myers [id number] 5 Anoop Myers Notes Date Note Type Note Provider Name and Address Organization Details Recorded Time 03/26/2022 text/html HPI Notes: New patient referred for painless gross hematuria. He was originally referred to me in 2014 for a PSA of 10.6. Biopsy showed [place] 3+3 prostate cancer and he was initially on active surveillance but PSA shena to 12.8 and he had an MRI showing a PI-RADS 4 lesion. Targeted biopsies showed [place] 4+4 prostate cancer. He completed external beam radiation in 2017 along with 2 years of androgen deprivation therapy. He has been lost to follow-up in our clinic since 04/06/2017. I reviewed the most recent clinic notes from Dr. Isaac Logan dated 02/13/[address] abdomen and pelvis with IV contrast report from [facility] dated 02/13/2022. This shows normal kidneys bilaterally [...] 20 mg as needed. Baron Burt MD [address], [place], [address], [facility] 03/26/2022 11:56:15
--- OUTSIDE RECORDS SUMMARY | 2023-07-23 15:46 | XMS_ITS | Clinical Summary ---
Author Organization [facility] Address [place], [place] [address] Care Team Providers Care Records Tech Name Role Phone Isaac Logan MD Primary Care Provider [phone] Allergies No known active allergies Medications Medication Sig Dispensed Refills Start Date End Date Status glipiZIDE (GLUCOTROL) 5 mg tabletIndications :Type 2 diabetes mellitus with stage 2 chronic kidney disease, without long-term current use of insulin (HC) Take 1/2 tablets by mouth once daily before a meal. 30 tablet 9 07/20/19 24 Discontinued( Other - add note to specify (E-cancel not sent)) metFORMIN (GLUCOPHAGE) 1,000 mg tabletIndications :Type 2 diabetes mellitus with stage 2 chronic kidney disease, without long-term current use of insulin (HC) Take 1 tablet by mouth 2 times daily with meals. 30 tablet 9 Suspended Additional Information metoprolol tartrate (LOPRESSOR) 50 mg tabletIndications :Persistent atrial fibrillation (HC) Take 1 tablet by mouth 2 times daily. 60 tablet 9 Suspended Additional Information levETIRAcetam (KEPPRA) 1,000 mg tabletIndications :Acute left ankle pain Take 1 tablet by mouth once daily AND 1.5 tablets at bedtime. 75 tablet 11 9 Suspended Additional Information lisinopril-hydroc hlorothiazide 20-12.5 mg tablet (PRINZIDE)Indicat ions:Essential hypertension Take 1 tablet by mouth once daily. 30 tablet 9 07/20/19 24 Discontinued( Other - add note to specify (E-cancel not sent)) amLODIPine (NORVASC) 10 mg tabletIndications :Essential hypertension Take 1 tablet by mouth once daily. 30 tablet 9 07/20/19 24 Discontinued( Other - add note to specify (E-cancel not sent)) warfarin (COUMADIN) 7.5 mg tabletIndications :Persistent atrial fibrillation (HC) Take 2 tablets by mouth once daily. 10 tablet 9 07/20/19 24 Discontinued( *Medication adjustment) furosemide (LASIX) 40 mg tablet Take 40 mg by mouth two times daily. Suspended pantoprazole (PROTONIX) 40 mg delayed-release tablet Take 40 mg by mouth once daily. 07/20/19 Discontinued( Other - add note to specify (E-cancel not sent)) spironolactone (ALDACTONE) 25 mg tablet Take 25 mg by mouth once daily. 07/20/19 24 Discontinued( Other - add note to specify (E-cancel not sent)) tadalafiL (CIALIS;ADCIRCA) 20 mg tablet Take 20 mg by mouth once daily if needed for Erectile Dysfunction. Take 30 minutes before sexual activity. 07/20/19 Discontinued( Other - add note to specify (E-cancel not sent)) tiZANidine (ZANAFLEX) 2 mg tablet Take 2 mg by mouth every 8 hours if needed for Muscle Spasm. 1-2 TABLETS EVERY 8 HOURS NEEDED 07/20/19 Discontinued( Other - add note to specify (E-cancel not sent)) HYDROcodone-aceta minophen (NORCO) 5-325 mg per tablet Take 1 Tablet by mouth every 6 hours if needed for Pain. Max acetaminophen dose: 4000 mg in 24 hrs. 07/20/19 Discontinued( Other - add note to specify (E-cancel not sent)) INSULIN ASPART U-100 SUBQ Inject 12 units subcutaneous three times daily. 07/20/19 Discontinued( Other - add note to specify (E-cancel not sent)) Eliquis 5 mg tablet Take 5 mg by mouth two times daily. 4 Suspended Jardiance 25 mg tablet Take 25 mg by mouth once daily. 4 Suspended omeprazole (PRILOSEC) 20 mg Delayed-Release capsule Take 20 mg by mouth once daily before a meal. 4 Suspended magnesium oxide (MAG-OX 400) 400 mg tablet Take 400 mg by mouth once daily. 4 Suspended insulin detemir U-100 (LEVEMIR) 100 unit/mL injection Inject 22 units subcutaneous once daily in the morning. Suspended tiZANidine (ZANAFLEX) 2 mg tablet Take 2 mg by mouth every 8 hours if needed for Muscle Spasm. Suspended pregabalin (LYRICA) 75 mg capsuleIndication s:Seizure (HC) Take 1 Capsule (75 mg) by mouth two times daily. 60 Capsule 3 4 07/22/19 24 Discontinued( *IP Discontinued) Active Problems Problem Noted Date Diagnosed Date Expressive aphasia 07/21/2023 History of CVA (cerebrovascular accident) 2023 Muscle spasms of neck 07/20/2023 Complex partial seizure disorder 07/20/2023 Carcinoma of prostate 03/25/2022 Left hemiparesis 04/28/2018 Metabolic encephalopathy 04/28/2018 Dysarthria [...] pain 04/24/2018 Chronic alcohol dependence, continuous 9 Retinopathy due to secondary diabetes 10/24/2010 History of gastroesophageal reflux 10/12/2009 History of [...] 10/12/2009 10/12/2009 Overview: Began 10:30pm on 10/11/2009. Encounters Date Type Department Care Team Description 07/20/2023 3:16 AM CDT - Present Hospital Encounter [facility] [address] [place] [address] [facility] [place], [facility] [place], MD Lisset Patiño, John Paul Alvarez MD Seizure (HC) (Primary Dx) from Last 3 Months Immunizations Name Administration Dates Next Due Influenza [...] oz pur e alcohol) 1 /week, occassnally Social Connections Answer Date Recorded Frequency of Communication with Friends and Fami ly Not on file 07/20/2023 Sex and Gender Information Value Date Recorded Sex Assigned at Not on file Gender Identity Not on file Sexual Orientation Not on file Obstetrics History Last Filed Vital Signs Vital Sign Reading Time Taken Comments Blood Pressure 125/76 07/23/2023 1:10 PM CDT Pulse 80 07/23/2023 1:10 PM CDT Temperature 36.8 ??C (98.3 ??F) 07/23/2023 7:45 AM CD T Respiratory Rate 20 07/23/2023 1:10 PM CDT Oxygen Saturation 98% 07/23/2023 1:10 PM CDT Inhaled Oxygen Concentration - - Weight 166.7 kg (367 lb 6.4 oz) 023 12:08 PM 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 OPERATOR Height 182.9 cm (6') 04/10/2022 12:08 PM PLODDING OPERATOR Body Mass Index 49.83 04/10/2022 12:08 PM PLODDING OPERATOR Plan of Treatment Health Maintenance Due Date Last Done Comments Depression screening for age 12+ 1968 BMI (ht and wt on same day) for age 18+ 1974 Hepatitis C screening for ag e 18-79 1974 Pneumococcal series for age 65+ (2 of 2 - PCV) 04/14/2001 04/14/2000 Colonoscopy through age 75 2001 Zoster (shingles) series for age 50+ (1 of 2) 2006 COVID-19 vaccine series ( season) 2022 05/12/2022, 04/29/2021, 06/28/2020, Additional history exists Influenza for age 65+ 10/10/2023 12/07/2016 , 12/09/2011, 10/02/2010, Additional history exists Tetanus booster 11/30/2023 11/29/2013, 09/11/2008 Lipids for age 45-75 07/19/2028 07/20/2023, 10/05/19 10 Tdap Completed 11/29/2013, 09/11/2008 Procedures The patient is currently admitted. The information in this section might not be complete until the patient is discharged. Procedure Name Priority Date/Time Associated Diagnosis Comments GLUCOSE METER Timed 07/23/2023 1:15 PM CDT BASIC METABOLIC PANEL Timed 07/23/2023 8:37 AM CDT GLUCOSE METER Timed 07/23/2023 6:35 AM CDT GLUCOSE METER Timed 07/22/2023 9:59 PM CDT GLUCOSE METER Timed 07/22/2023 5:50 PM CDT GLUCOSE METER Timed 07/22/2023 11:48 AM CDT GLUCOSE METER Timed 07/22/2023 6:54 AM CDT GLUCOSE METER Timed 07/21/2023 10:15 PM CDT GLUCOSE METER Timed 07/21/2023 8:32 PM CDT GLUCOSE METER Timed 07/21/2023 5:43 PM CDT GLUCOSE METER Timed 07/21/2023 12:03 PM CDT GLUCOSE METER Timed 07/21/2023 8:19 AM CDT HEPATIC FUNCTION PANEL ULI 07/21/2023 6:12 AM CDT POTASSIUM Early AM 07/21/2023 6:12 AM CDT MAGNESIUM Early AM 07/21/2023 6:[address] HEAD BRAIN WO STAT 07/21/2023 3:12 AM CDT SCAN-CARDIAC STRIP 07/21/2023 3: 06 AM CDT SCAN-CARDIAC STRIP 07/21/2023 3: 05 AM CDT GLUCOSE METER Timed 07/21/2023 2:31 AM CDT GLUCOSE METER Timed 07/21/2023 1:51 AM CDT GLUCOSE METER Timed 07/20/2023 9:37 PM CDT GLUCOSE METER Timed 07/20/2023 5:14 PM CDT ECHO TTE COMPLETE W CONTRAST W BUBBLE Routine 07/20/2023 3:40 PM CDT SCAN-CARDIAC STRIP 07/20/2023 2: 33 PM CDT EKG 12 LEAD STAT 07/20/2023 1:[address] ANGIO HEAD NECK CAROTID STROKE PROTOCOL FANNY CANDIDAT STAT 07/20/2023 1:[address] HEAD STROKE PROTOCOL WITHOUT CONTRAST STAT 07/20/2023 1:09 PM CDT GLUCOSE METER Timed 07/20/2023 12:52 PM CDT PRO-BNP ULI 07/20/2023 11:42 AM CDT POTASSIUM Early AM 07/20/2023 11:42 AM CDT GLUCOSE METER Timed 07/20/2023 10:12 AM CDT LIPID PANEL ULI 07/20/2023 8:39 AM CDT CBC W PLT NO DIFF Early AM 07/20/2023 8:3 9 AM CDT MAGNESIUM Early AM 07/20/2023 8:39 AM CDT CREATININE Early AM 07/20/2023 8:39 AM CDT SODIUM Early AM 07/20/2023 8:[address] HEAD BRAIN WO ULI 07/20/2023 6:49 AM CDT CONTINUOUS VIDEO EEG MONITORING Routine 07/20/2023 6:24 AM CDT from Last 3 Months Results * (ABNORMAL) GLUCOSE METER (07/23/2023 1:15 PM CDT) Only the most recent of17 resultswithin the time period is included. GLUCOSE METER 190(H) 65 - 100 mg/dL 07/23/2023 1:16 PM CDT [facility] Blood BLOOD SPECIMEN / Unknown 07/23/2023 1:15 PM CDT 07/23/2023 1:16 PM CDT John Paul Darling MD [facility] [address] [place] [address], * (ABNORMAL) Basic metabolic panel TODAY (07/23/2023 8:37 AM CDT) SODIUM 139 136 - 145 mmol/L 07/23/2023 9:24 AM CDT [facility] POTASSIUM 4.2 3.5 - 5.1 mmol/L 07/23/2023 9:24 AM CDT [facility] CHLORIDE 104 98 - 107 mmol/L 07/23/2023 9:24 AM CDT [facility] CO2,TOTAL 25 22 - 29 mmol/L 07/23/2023 9:24 AM T [facility] ANION GAP 10 5 - 18 07/23/2023 9:24 AM T [facility] GLUCOSE 183(H) 70 - 99 mg/dL 07/23/2023 9:24 AM CDT [facility] CALCIUM 9.0 8.8 - 10.2 mg/dL 07/23/2023 9:24 AM T [facility] BUN 14 8 - 23 mg/dL 07/23/2023 9:24 AM T [facility] CREATININE 0.94 0.70 - 1.20 mg/dL 07/23/2023 9:24 AM [facility] BUN/CREAT RATIO 15 10 - 20 9:24 AM [facility] eGFR 89(L) >90 mL/min/1.7 3m2 07/23/2023 9:24 AM T [facility] Comment:As of 2021, eG FR is calculated by the CKD-EPI creatinine equation without race adjustment. ??eGFR can be influenced by muscle mass, exercise, and diet. ??The reported eGFR is an estimation only and is only applicable if the renal function is stable. Blood BLOOD SPECIMEN / Unknown Non-Lab Venipuncture / Unknown 07/23/2023 8:37 AM CDT 07/23/2023 8:49 AM CDT John Paul Darling MD CHEMISTRY [facility] [address] [place] [address], * POTASSIUM (07/21/2023 6:12 AM CDT) Only the most recent of2 resultswithin the time period is included. POTASSIUM 4.1 3.5 - 5.1 mmol/L 07/21/2023 7:03 AM CDT [facility] Blood BLOOD SPECIMEN / Unknown Venipuncture / Unknown 07/21/2023 6:12 AM CDT 07/21/2023 6:34 AM CDT Nilam Guy RN CHEMISTRY Performing Organization Address City/[facility] Co de Phone Number [facility] [address] [place] [address], * MAGNESIUM (07/21/2023 6:12 AM CDT) Only the most recent of2 resultswithin the time period is included. MAGNESIUM 1.9 1.6 - 2.4 mg/dL 07/21/2023 7:03 AM CDT [facility] Blood BLOOD SPECIMEN / Unknown Venipuncture / Unknown 07/21/2023 6:12 AM CDT 07/21/2023 6:34 AM CDT Nilam Guy RN CHEMISTRY Performing Organization Address [facility] de Phone Number [facility] [address] [place] [address], * HEPATIC FUNCTION PANEL (07/21/2023 6:12 AM CDT) ALBUMIN 4.2 4.0 - 4.9 g/dL 07/22/2023 2:09 PM CDT [facility] PROTEIN,TOTAL 7.1 6.0 - 8.0 g/dL 07/22/2023 2:09 PM CDT [facility] BILIRUBIN,TOTAL 0.6 0.0 - 1.2 mg/dL 07/22/2023 2:09 PM CDT [facility] BILIRUBIN,DIRECT <0.2 0.0 - 0.3 mg/dL 07/22/2023 2:09 PM CDT [facility] BILIRUBIN,INDIRE CT 07/22/2023 2:09 PM CDT [facility] Comment:Unable to calculate, Direct Bili <0.2 ALK PHOSPHATASE 62 40 - 129 IU/L 07/22/2023 2:09 PM CDT [facility] ALT (SGPT) 13 10 - 50 IU/L 07/22/2023 2:09 PM CDT [facility] AST (SGOT) 22 10 - 50 IU/L 07/22/2023 2:09 PM CDT [facility] Blood BLOOD SPECIMEN / Unknown Venipuncture / Unknown 07/21/2023 6:12 AM CDT 07/21/2023 6:34 AM CDT Na MCDANIELS CHEMISTRY [facility] [address] [place] [address], * CT HEAD BRAIN WO (07/21/2023 3:12 AM CDT) Only the most recent of2 resultswithin the time period is included. Anatomical Region Laterality Modality HEAD, BRAIN Computed Tomogra phy 07/21/2023 3:23 AM CDT Impressions 07/21/2023 3:23 AM CDT 1. No evidence of acute infarction, intracranial hemorrhage, or mass-effect seen. Dictated by Tristan Castro MD @ 07/21/2023 3:23:00 AM Please note that all CT scans at this facility use dose modulation, iterative reconstruction, and/or weight-based dosing when appropriate to reduce radiation dose to as low as reasonably achievable. Dictated by: Tristan Castro MD @ 07/21/2023 03:23:05 (Electronically Signed) Narrative 07/21/2023 3:23 AM CDT For Patients: ??As a result of the 21st Century Cures Act, medical imaging exams and procedure reports are released immediately into your electronic medical record. ??You may view this report before your referring provider. ??If you have questions, please contact your health care provider. INDICATION: Mental status change, unknown cause Headache, new or worsening TECHNIQUE: CT Head without i.v. contrast. Coronal and sagittal reformats were obtained. COMPARISON: 07/20/2023 FINDINGS: CSF space: Unremarkable for age. Brain: A small chronic lacunar infarct is present in the right iveth without interval change. Encephalomalacia is noted along the medial left frontal parietal lobe. No mass-effect or midline shift is seen. Mild diffuse cortical atrophy is noted. Calvarium: The visualized paranasal sinuses are well aerated. The mastoid air cells are clear. The visualized orbits are grossly unremarkable. The calvarium is unremarkable in appearance with no fractures identified. Procedure Note Tristan Castro MD - 07/21/2023 For Patients: As a result of the Cures Act, medical imagingexams and procedure reports are released immediately into your electronicmedical record. You may view this report before your referring provider.If you have questions, please contact your health care provider. INDICATION: Mental status change, unknown cause Headache, new or worsening TECHNIQUE: CT Head without i.v. contrast. Coronal and sagittal reformatswere obtained. COMPARISON: 07/20/2023 FINDINGS: CSF space: Unremarkable for age. Brain: A small chronic lacunar infarct is present in the right ponswithout interval change. Encephalomalacia is noted along the medial leftfrontal parietal lobe. No mass-effect or midline shift is seen. Milddiffuse cortical atrophy is noted. Calvarium: The visualized paranasal sinuses are well aerated. The mastoidair cells are clear. The visualized orbits are grossly unremarkable. Thecalvarium is unremarkable in appearance with no fractures identified. IMPRESSION: 1. No evidence of acute infarction, intracranial hemorrhage, ormass-effect seen. Dictated by Tristan Castro MD @ 07/21/2023 3:23:00 AM Please note that all CT scans at this facility use dose modulation,iterative reconstruction, and/or weight-based dosing when appropriate toreduce radiation dose to as low as reasonably achievable. Dictated by: Tristan Castro MD @ 07/21/2023 03:23:05 (Electronically Signed) Nimo Bahena MD CT * SCAN-CARDIAC STRIP (07/21/2023 3:06 AM CDT) Scanner OTHER * SCAN-CARDIAC STRIP (07/21/2023 3:05 AM CDT) Scanner OTHER * ECHO TTE COMPLETE W CONTRAST W BUBBLE (07/20/2023 3:40 PM CDT) AORTIC VALVE MEAN PG 3 mmHg EJECTION FRACTION 56 % LVEDD 3.9 cm EJECTION FRACTION 55 - 60% Anatomical Region Laterality Modality Ultrasound 07/20/2023 2:40 PM CDT Narrative 07/20/2023 4:00 PM CDT ECHOCARDIOGRAM ANOOP RFANKS ?Accession#: ?? [id number] : ?1955 67 years Study Date: ?? 07/20/2023 2:40:05 PM Gender: M ? BP: ? 213/113 mmHg Height: 182.00 cm ? BSA: ?2.74 m? ? ? Weight: 166.00 kg ? Tech: ? DAKOTAH ?Referring MD: JOHN PAUL DARLING Site: ? [facility] Reading Location: [facility] Patient Location: Inpatient. Procedure: 2D w/ Bubbles, 2D w/ Contrast, Color Doppler and Spectral Doppler. Indication for study: Heart Failure, HTN, and TIA. Cardiac Rhythm: Irregular.Study quality: Technically limited. Final Impressions: 1. Technically limited exam. 2. Normal LV size, moderately increased wall thickness, estimated EF of 55 - 60%. 3. RV is not well-visualized: likely enlarged with decreased systolic function. 4. Indeterminate pattern of LV diastolic filling. 5. The aortic valve is sclerotic and trileaflet, no stenosis and no regurgitation. 6. No significant valve disease detected. 7. The inferior vena cava is dilated, respiratory size variation less than 50%. 8. Negative bubble study. 9. Echo contrast was administered to enhance visualization of all left ventricular segments. Chamber Sizes and Function Normal left ventricular size, moderately increased wall thickness, normal global systolic function with an estimated EF of 55 - 60%. Left atrial size is not well visualized. Right ventricular cavity size is not well visualized, global systolic RV function is not well visualized. The right atrium is not well visualized. The pulmonary artery is not well visualized. The sinus of Valsalva is normal sized. The ascending aorta is normal sized. Valves, RV Pressures and Diastolic Function The aortic valve is sclerotic and trileaflet, no stenosis and no regurgitation. The mitral valve is normal in structure, trace mitral regurgitation. Mitral annular calcification is present. Indeterminate pattern of LV diastolic filling. The tricuspid valve is not well visualized. Tricuspid regurgitation is trace regurgitation. The pulmonic valve is not well visualized. Trace pulmonary regurgitation. Masses, Effusion, Shunts There is no pericardial effusion. The inferior vena cava is dilated, respiratory size variation less than 50%. Agitated saline injection showed no right to left shunt at rest or following Valsalva manuever. No left to right shunting was detected by limited color flow Doppler interrogation of the interatrial septum. MEASUREMENTS AND CALCULATIONS 2-D Measurements and LV Function: LVID (d) 3.9 cm LV FS% (2D) ?? 38 % LVID (s) 2.4 cm LVOT diameter 2.4 cm IVS (d) ??1.4 cm HR ?82 bpm LVPW (d) 1.5 cm LA Vol index ??19 ml/m2 Ao Sinus 3.6 cm RV Max 4C (d) 4.2 cm Asc Ao ?? 3.9 cm Diastology: Mitral ?Tissue Doppler E Peak 0.8 m/s ??e', Septum ? 0.08 m/s DT ? 169 msec e', Lateral ?0.10 m/s ?E/e' Average ?? 8.73 Aortic Valve: Vmax ? 1.1 m/s ??LIAM (V) ?? 2.20 cm? ? ? VTI ?0.20 m ?? LIAM (I) ?? 2.25 cm? ? ? LVOT V max 0.5 m/s ??Max PG ?5 mmHg LVOT VTI ?? 0.10 m ?? Mean PG ?? 3 mmHg SV ? 46 ml ?Dim Index 0.50 SV index ?? 17 ml/m? ? ? CO ?3.7 l/min ?CI ?1.4 l/min/m? ? ? Mitral Valve: MVA ?4.5 cm? ? ? MV P 1/2 49 msec Tricuspid Valve and estimated PA pressures: TAPSE 0.9 cm Contrast documentation: 2 ml diluted Definity, lot #[id number] was administered peripherally to enhance visualization of all left ventricular segments. . This study was interpreted by an [facility] accredited facility. ??Final ?? Procedure Note Claude Avila MD - 07/20/2023 ECHOCARDIOGRAM ANOOP FRANKS : 1955 67 years Study Date: 07/20/2023 2:40:05 PM Gender: M BP: 213/113 mmHg Height: 182.00 cm BSA: 2.74 m? ? ? Weight: 166.00 kg Tech: DAKOTAH Referring MD: JOHN PAUL DARLING Site: [facility] Reading Location: [facility] Patient Location: Inpatient. Procedure: 2D w/ Bubbles, 2D w/ Contrast, Color Doppler and SpectralDoppler. Indication for study: Heart Failure, HTN, and TIA. Cardiac Rhythm: Irregular.Study quality: Technically limited. Final Impressions: 1. Technically limited exam. 2. Normal LV size, moderately increased wall thickness, estimated EF of55 - 60%. 3. RV is not well-visualized: likely enlarged with decreased systolicfunction. 4. Indeterminate pattern of LV diastolic filling. 5. The aortic valve is sclerotic and trileaflet, no stenosis and noregurgitation. 6. No significant valve disease detected. 7. The inferior vena cava is dilated, respiratory size variation lessthan 50%. 8. Negative bubble study. 9. Echo contrast was administered to enhance visualization of all leftventricular segments. Chamber Sizes and Function Normal left ventricular size, moderately increased wall thickness, normalglobal systolic function with an estimated EF of 55 - 60%. Left atrialsize is not well visualized. Right ventricular cavity size is not wellvisualized, global systolic RV function is not well visualized. The rightatrium is not well visualized. The pulmonary artery is not wellvisualized. The sinus of Valsalva is normal sized. The ascending aorta isnormal sized. Valves, RV Pressures and Diastolic Function The aortic valve is sclerotic and trileaflet, no stenosis and noregurgitation. The mitral valve is normal in structure, trace mitralregurgitation. Mitral annular calcification is present. Indeterminatepattern of LV diastolic filling. The tricuspid valve is not wellvisualized. Tricuspid regurgitation is trace regurgitation. The pulmonicvalve is not well visualized. Trace pulmonary regurgitation. Masses, Effusion, Shunts There is no pericardial effusion. The inferior vena cava is dilated,respiratory size variation less than 50%. Agitated saline injection showedno right to left shunt at rest or following Valsalva manuever. No left toright shunting was detected by limited color flow Doppler interrogation ofthe interatrial septum. MEASUREMENTS AND CALCULATIONS 2-D Measurements and LV Function: LVID (d) 3.9 cm LV FS% (2D) 38 % LVID (s) 2.4 cm LVOT diameter 2.4 cm IVS (d) 1.4 cm HR 82 bpm LVPW (d) 1.5 cm LA Vol index 19 ml/m2 Ao Sinus 3.6 cm RV Max 4C (d) 4.2 cm Asc Ao 3.9 cm Diastology: Mitral Tissue Doppler E Peak 0.8 m/s e', Septum 0.08 m/s DT 169 msec e', Lateral 0.10 m/s E/e' Average 8.73 Aortic Valve: Vmax 1.1 m/s LIAM (V) 2.20 cm? ? ? VTI 0.20 m LIAM (I) 2.25 cm? ? ? LVOT V max 0.5 m/s Max PG 5 mmHg LVOT VTI 0.10 m Mean PG 3 mmHg SV 46 ml Dim Index 0.50 SV index 17 ml/m? ? ? CO 3.7 l/min CI 1.4 l/min/m? ? ? Mitral Valve: MVA 4.5 cm? ? ? MV P 1/2 49 msec Tricuspid Valve and estimated PA pressures: TAPSE 0.9 cm Contrast documentation: 2 ml diluted Definity, lot #[id number] was administeredperipherally to enhance visualization of all left ventricular segments. . This study was interpreted by an [facility] accredited facility. Final John Paul Darling MD ECHO ORD * SCAN-CARDIAC STRIP (07/20/2023 2:33 PM CDT) Scanner OTHER * 12 Lead EKG - SYSTEMS ANALYST DEVELOPER (07/20/2023 1:43 PM CDT) Interpretation Atrial fibrillation Left axis deviation Low voltage QRS Cannot rule out Anterior infarct (cited on or before 12-OCT-2009) Abnormal ECG When compared with ECG of 28-APR-2018 13:13, Vent. rate has decreased BY ??69 BPM Questionable change in initial forces of Septal leads BEYOND NOW Ventricular Rate 67 BPM BEYOND NOW Atrial Rate BPM BEYOND NOW P-R Interval ms BEYOND NOW QRS Duration 98 ms BEYOND NOW QT 402 ms BEYOND NOW QTc 424 ms BEYOND NOW P [place] degrees BEYOND NOW R [place] -36 degrees BEYOND NOW T [place] 26 degrees BEYOND NOW 07/20/2023 1:43 PM CDT 07/21/2023 12:22 PM CDT John Paul Darling MD EKG ORD BEYOND NOW [place], [place] * CT ANGIO HEAD NECK CAROTID STROKE PROTOCOL FANNY CANDIDAT (07/20/2023 1:21 PM CDT) Anatomical Region Laterality Modality BRAIN, NECK Computed Tomogra phy 07/20/2023 1:40 PM CDT Addenda Addendum by Ortiz Morrow MD on 07/21/2023 9:56 AM CDT For Patients: ??As a result of the Century Cures Act, medical imaging exams and procedure reports are released immediately into your electronic medical record. ??You may view this report before your referring provider. ?? If you have questions, please contact your health care provider. CLINICAL HISTORY: Stroke. TECHNIQUE: Standard helical CT image acquisition through the head following the administration of intravenous contrast was performed. 3D and MIP reconstructions were performed at a separate workstation and permanently archived. COMPARISON: MRA head and neck dated 10/09/2009. FINDINGS: There is short-segment occlusion/near occlusion of an M3 branch of the posterior division of the left MCA. Intracranial atherosclerotic disease, most notably involving the carotid siphons, but without resulting flow-limiting luminal stenosis. No evidence of cerebral aneurysm. No findings to suggest an arterial-venous shunting lesion. IMPRESSION: Short-segment occlusion/near occlusion of an M3 branch of the posterior division of the left MCA. Please note that all CT scans at this facility use dose modulation, iterative reconstruction, and/or weight-based dosing when appropriate to reduce radiation dose to as low as reasonably achievable. Dictated by Ortiz Morrow MD @ 07/21/2023 9:56:33 AM (Electronically Signed) Impressions 07/21/2023 9:52 AM CDT 1. Patent cervical arterial vasculature without hemodynamically significant luminal stenosis. 2. Approximately 3cm hypodense nodule in the left lobe of the thyroid gland. Further assessment with thyroid ultrasound is recommended on a nonurgent basis. Please note that all CT scans at this facility use dose modulation, iterative reconstruction, and/or weight-based dosing when appropriate to reduce radiation dose to as low as reasonably achievable. Dictated by Ortiz Morrow MD @ 07/21/2023 9:52:21 AM (Electronically Signed) Narrative 07/21/2023 9:52 AM CDT For Patients: ??As a result of the 21st Century Cures Act, medical imaging exams and procedure reports are released immediately into your electronic medical record. ??You may view this report before your referring provider. ??If you have questions, please contact your health care provider. CLINICAL HISTORY: Stroke. TECHNIQUE: Standard helical CT image acquisition through the neck was performed after intravenous contrast bolus enhancement. 3D and MIP reconstructions were performed at a separate workstation and permanently archived. COMPARISON: CTA head and neck dated 10/09/2009. FINDINGS: The origins of the great vessels from the aortic arch are patent. ??The common carotid arteries are patent. No significant luminal stenoses of the proximal ICAs by NASCET criteria. The more distal cervical segments of the ICAs are patent. The origins and cervical segments of the vertebral arteries are patent. There is an approximately 3cm hypodense nodule in the left lobe of the thyroid gland. There is extensive subcutaneous edema within the visualized upper neck. Procedure Note Ortiz Morrow MD - 07/21/2023 For Patients: As a result of the Century Cures Act, medical imagingexams and procedure reports are released immediately into your electronicmedical record. You may view this report before your referring provider.If you have questions, please contact your health care provider. CLINICAL HISTORY: Stroke. TECHNIQUE: Standard helical CT image acquisition through the neck was performed afterintravenous contrast bolus enhancement. 3D and MIP reconstructions wereperformed at a separate workstation and permanently archived. COMPARISON: CTA head and neck dated 10/09/2009. FINDINGS: The origins of the great vessels from the aortic arch are patent. Thecommon carotid arteries are patent. No significant luminal stenoses of theproximal ICAs by NASCET criteria. The more distal cervical segments of theICAs are patent. The origins and cervical segments of the vertebralarteries are patent. There is an approximately 3cm hypodense nodule in the left lobe of thethyroid gland. There is extensive subcutaneous edema within the visualized upper neck. IMPRESSION: 1. Patent cervical arterial vasculature without hemodynamicallysignificant luminal stenosis. 2. Approximately 3cm hypodense nodule in the left lobe of the thyroidgland. Further assessment with thyroid ultrasound is recommended on anonurgent basis. Please note that all CT scans at this facility use dose modulation,iterative reconstruction, and/or weight-based dosing when appropriate toreduce radiation dose to as low as reasonably achievable. Dictated by Ortiz Morrow MD @ 07/21/2023 9:52:21 AM (Electronically Signed) Eder Brownlee MD CT * CT HEAD STROKE PROTOCOL WITHOUT CONTRAST (07/20/2023 1:09 PM CDT) Anatomical Region Laterality Modality BRAIN Computed Tomogra phy 07/20/2023 1:20 PM CDT Narrative 07/20/2023 1:20 PM CDT For Patients: ??As a result of the Century Cures Act, medical imaging exams and procedure reports are released immediately into your electronic medical record. ??You may view this report before your referring provider. ??If you have questions, please contact your health care provider. Indication: Follow-up ischemia/cerebrovascular disease Technique: Volumetric multidetector CT images of the head were obtained without the administration of low osmolar intravenous contrast. Comparison: CT head July 20, 2023 6:47 a.m. ??and CT head May 03, 2018 Findings: There is no intra-axial or extra-axial fluid collection. There is no mass effect or midline shift. Stable global cortical atrophy with sulcal widening and ex vacuo dilatation of the lateral ventricles. Again seen is focal encephalomalacia of the mesial left posterior frontal lobe stable from comparison. Old lacunar changes of the basal ganglia and right carlito iveth are again seen. Questionable additional stable encephalomalacia of the mesial inferior left cerebellum from comparison. There is moderate chronic small vessel disease change within the subcortical and periventricular white matter similar to previous exam. Otherwise, the brain parenchyma is stable in attenuation and villarreal-white differentiation. The orbits and their contents are grossly within normal limits. There is demonstration of extensive prominence of the occipital tubercle with marked focal soft tissue thickening and phlegmon changes similar to remote comparison exam which may represent sequela of prior trauma and/or inflammatory change. Otherwise, the bony calvarium is grossly intact. The paranasal sinuses are clear. Again seen is fluid within the right mastoid air cells with sclerotic changes likely representing sequela of mastoiditis. Impression: Overall, stable appearance of age-related, chronic small-vessel disease, and remote ischemic changes of the brain without evidence of new acute intracranial abnormality. A negative head report was sent to Dr. Brownlee at 1:19 p.m. July 20, 20[address] Please note that all [address] scans at this facility use dose modulation, iterative reconstruction, and/or weight-based dosing when appropriate to reduce radiation dose to as low as reasonably achievable. Dictated by Eidson Tirado MD @ 07/20/2023 1:20:58 PM (Electronically Signed) Procedure Note Edison Tirado MD - 07/20/2023 For Patients: As a result of the Cures Act, medical imagingexams and procedure reports are released immediately into your electronicmedical record. You may view this report before your referring provider.If you have questions, please contact your health care provider. Indication: Follow-up ischemia/cerebrovascular disease Technique: Volumetric multidetector CT images of the head were obtained without theadministration of low osmolar intravenous contrast. Comparison: CT head July 20, 2023 6:[address] head May 03, 2018 Findings: There is no intra-axial or extra-axial fluid collection. There is no mass effect or midline shift. Stable global cortical atrophy with sulcal widening and ex vacuodilatation of the lateral ventricles. Again seen is focal encephalomalacia of the mesial left posterior frontallobe stable from comparison. Old lacunar changes of the basal ganglia andright carlito iveth are again seen. Questionable additional stableencephalomalacia of the mesial inferior left cerebellum from comparison.There is moderate chronic small vessel disease change within thesubcortical and periventricular white matter similar to previous exam.Otherwise, the brain parenchyma is stable in attenuation and villarreal-whitedifferentiation. The orbits and their contents are grossly within normal limits. There is demonstration of extensive prominence of the occipital tuberclewith marked focal soft tissue thickening and phlegmon changes similar toremote comparison exam which may represent sequela of prior trauma and/orinflammatory change. Otherwise, the bony calvarium is grossly intact. The paranasal sinuses are clear. Again seen is fluid within the right mastoid air cells with scleroticchanges likely representing sequela of mastoiditis. Impression: Overall, stable appearance of age-related, chronic small-vessel disease,and remote ischemic changes of the brain without evidence of new acuteintracranial abnormality. A negative head report was sent to Dr. Brownlee at 1:19 p.m. July 20, 20[address] Please note that all CT scans at this facility use dose modulation,iterative reconstruction, and/or weight-based dosing when appropriate toreduce radiation dose to as low as reasonably achievable. Dictated by Edison Tirado MD @ 07/20/2023 1:20:58 PM (Electronically Signed) Eder Brownlee MD CT * (ABNORMAL) PRO-BNP (07/20/2023 11:42 AM CDT) Pathologist [facility] PRO-BNP 941(H) <125 pg/mL 07/20/2023 2:21 PM CDT [facility] Blood BLOOD SPECIMEN / Unknown Venipuncture / Unknown 07/20/2023 11:42 AM CDT 07/20/2023 11:51 AM CDT Narrative [facility] - 07/20/2023 2:21 PM CDT The following cut-points have been suggested for the use of proBNP for the diagnostic evaluation of heart failure (HF) in patient with acute dyspnea. Patients with eGFR >= 60 Diagnosis (rule in CHF) ? <50 Years Old ?450 pg/mL 50 - 75 Years Old ?900 pg/mL >75 Years Old ? 1800 pg/mL Exclusion (rule out CHF) Age Independent ?300 pg/mL A cutoff of 1200 pg/mL for patients with an eGFR <60 yields a diagnostic sensitivity of 89% and specificity of 72% for acute congestive heart failure. ? John Paul Darling MD SEND OUTS [facility] [address] [place] [address], * (ABNORMAL) CBC W PLT NO DIFF (07/20/2023 8:39 AM CDT) Pathologist [facility] WHITE BLOOD COUNT 3.3(L) 4.5 - 11.0 thou/cu mm 07/20/2023 9:13 AM CDT [facility] RED BLOOD COUNT 5.79 4.30 - 5.90 mil/cu mm 07/20/2023 9:13 AM CDT [facility] HEMOGLOBIN 16.5 13.5 - 17.5 g/dL 07/20/2023 9:13 AM CDT [facility] HEMATOCRIT 51.0 37.0 - 53.0 % 07/20/2023 9:13 AM CDT [facility] MCV 88 80 - 100 fL 07/20/2023 9:13 AM CDT [facility] MCH 28.5 26.0 - 34.0 pg 07/20/2023 9:13 AM CDT [facility] MCHC 32.4 32.0 - 36.0 g/dL 07/20/2023 9:13 AM CDT [facility] RDW 13.3 11.5 - 15.5 % 07/20/2023 9:13 AM CDT [facility] PLATELET COUNT 164 140 - 440 thou/cu mm 07/20/2023 9:13 AM CDT [facility] MPV 12.2(H) 6.5 - 11.0 fL 07/20/2023 9:13 AM CDT [facility] NRBC 0.0 % 07/20/2023 9:13 AM CDT [facility] ABS NRBC 0.0 thou /cu mm 07/20/2023 9:13 AM CDT [facility] Blood BLOOD SPECIMEN / Unknown Venipuncture / Unknown 07/20/2023 8:39 AM CDT 07/20/2023 8:48 AM CDT Ruben Dillard MD [facility] [address] [place] [address], * SODIUM (07/20/2023 8:39 AM CDT) SODIUM 138 136 - 145 mmol/L 07/20/2023 9:31 AM CDT [facility] Blood BLOOD SPECIMEN / Unknown Venipuncture / Unknown 07/20/2023 8:39 AM CDT 07/20/2023 8:48 AM CDT Ruben Dillard MD CHEMISTRY Performing Organization Address [facility] de Phone Number [facility] [address] [place] [address], * (ABNORMAL) CREATININE (07/20/2023 8:39 AM CDT) eGFR 79(L) >90 mL/min/1.7 3m2 07/20/2023 9:31 AM CDT [facility] Comment:As of 2021, eG FR is calculated by the CKD-EPI creatinine equation without race adjustment. ??eGFR can be influenced by muscle mass, exercise, and diet. ??The reported eGFR is an estimation only and is only applicable if the renal function is stable. CREATININE 1.04 0.70 - 1.20 mg/dL 07/20/2023 9:31 AM CDT [facility] Blood BLOOD SPECIMEN / Unknown Venipuncture / Unknown 07/20/2023 8:39 AM CDT 07/20/2023 8:48 AM CDT Ruben Dillard MD CHEMISTRY Performing Organization Address [facility] Co de Phone Number [facility] [address] [place] [address], [place] * LIPID PANEL (07/20/2023 8:39 AM CDT) CHOLESTEROL,TOTAL 145 100 - 199 mg/dL 07/20/2023 9:31 AM CDT [facility] Comment: Cholesterol, Total Reference Ranges Desirable <200 mg/dL Borderline 200-239 mg/dL High >=240 mg/dL TRIGLYCERIDES 91 <150 mg/dL 07/20/2023 9:31 AM CDT [facility] [employer] [facility] HDL CHOLESTEROL 51 >40 mg/dL 9:31 AM CDT [facility] NON-HDL CHOLESTEROL 94 <145 mg/dl 07/20/2023 9:31 AM CDT [facility] CHOL/HDL RATIO 2.84 <4.50 07/20/2023 9:31 AM CDT [facility] LDL CHOLESTEROL 76 <=130 mg/dL 07/20/2023 9:31 AM CDT [facility] VLDL CHOLESTEROL 18 <=30 mg/dL 07/20/19 9:31 AM CDT [facility] Blood BLOOD SPECIMEN / Unknown Venipuncture / Unknown 07/20/2023 8:39 AM CDT 07/20/2023 8:48 AM CDT John Paul Darling MD [facility] [address] [place] [address], * CONTINUOUS VIDEO EEG MONITORING (07/20/2023 6:24 AM CDT) Narrative Senthil Caba MD - 07/20/2023 6:24 AM CDT Senthil Caba MD ? 07/21/2023 10:40 AM [facility], [address] [place], [place] ??[address] Ph: ??[phone] SPECIAL NEURODIAGNOSTIC PROCEDURE - ELECTROENCEPHALOGRAM - EEG Video EEG Report Patient Name: ??Anoop Franks : ?[id number] Study Date: ?07/20/2023 Study Number: ?? VBA Duration: ? [id number], [id number], [id number], [id number] (9 Hours 47 Minutes) Admit Date: ?07/20/2023 Clinical Note: 67 y.o. male with history of seizures who is transferred from [facility] where he presented with a history of several months of focal motor seizures. ??EEG monitoring to assess his presentation further and monitor for ictal or interictal abnormalities. ?? Condition of Recording: This is a digital EEG with continuous video recording. ??It utilizes the 21-lead modified international 10/20 system for scalp recordings. ??It also uses video recording to clinically correlate epileptiform abnormalities and improve localization for target clinical events. ??Physician access to data was available throughout the recording period. A daily report, as below, was generated and updated at least once every 24 hour period. Activation Procedures: ??None. Neuroactive Medications: ??Keppra. Results: ?? Background: ??Background activity during wakefulness reveals a 10-15 uV-amplitude, 9 Hz posterior dominant rhythm. ??It appears symmetrical, synchronous, and reactive to eye opening. ??Lower amplitude frequencies are noted over the frontal hernandez creating an appropriate anterior-posterior amplitude-frequency gradient. Sleep: ??Stage I and stage II of sleep were identified. ??Stage II sleep is notable for symmetric sleep spindles, vertex sharp transients, and K complexes. EKG: ??A resting heart rate in the 80s is noted. Interictal Findings: ??None. Ictal Events: ??No events of twitching or focal motor movements were seen or reported. ??Alexx did have an episode with aphasia noted at 1233 which was clearly different from his baseline. ?? Onset is not definitive, however, no seizure activity is seen on EEG. ?? Impression: ??Normal awake and asleep EEG. ??A clinical event was captured with a differential of cerebrovascular event vs surface negative focal seizure. ?? Clinical Correlation: A normal EEG does not rule out the diagnosis of epilepsy. ??A clinical event was captured that could be a focal seizure without reflection to surface EEG. ??Clinical correlation is recommended. Senthil Caba MD [facility] This continuous video EEG study was completed on 07/20/2023, with a total recording duration of 9 hours and 47 minutes. Ruben iDllard MD NEUROLOGY ORD from Last 3 Months Additional Health Concerns Infection Onset Date Last Indicated Resolved Time MDRO Clearance Comment:Infection Control Note: Hx of MRSA, surveillance criteria met, no need for further testing or isolation precautions. Do not delete or resolve the Infection Flag. 04/06/2022 04/06/2022 Advance Directives * Full Code (Latest Code Status on File) Date Activated Date Inactivated Comments 07/20/2023 3:56 AM Question Answer Comments Code Status Discussion: Reviewed Preferences * Full Code Date Activated Date Inactivated Comments 04/10/2022 11:38 AM 04/10/2022 5:41 PM Question Answer Comments Code Status Discussion: Not Discussed * Full Code Date Activated Date Inactivated Comments 04/24/2018 10:17 PM 05/05/2018 5:22 PM * Full Code Date Activated Date Inactivated Comments 10/12/2009 11:41 AM 10/16/2009 5:41 PM * Full Code Date Activated Date Inactivated Comments 10/04/2009 6:30 AM 10/09/2009 3:50 PM Care Teams Records Tech Relationship Specialty Start Date End Date Isaac Logan MD PCP - General Family Practice 04/01/16
== END 2023-07-20 02:06 | disposition home or self-care (01) ==
LOC: AMB 07-23 15:43
PROVIDERS: PCP Family Medicine; Visit Provider Student in an Organized Health Care Education/Training Program
DX: G40.909 Epilepsy, unspecified, not intractable, without status epilepticus (principal); I48.91 Unspecified atrial fibrillation
CPT/HCPCS: A0425; A0427

== ENCOUNTER 2023-09-27 12:05 | Outpatient (CLI) | payer MEDICARE, BC, SELFPAY | END 2023-09-27 12:06 | disposition home or self-care (01) | LOC: AMB 09-29 22:19 | PROVIDERS: PCP Family Medicine; Visit Provider Student in an Organized Health Care Education/Training Program | DX: R41.82 Altered mental status, unspecified (principal) | CPT/HCPCS: A0425; A0429 ==

== ENCOUNTER 2023-09-27 12:38 | Emergency (ER) | payer MEDICARE, BC, SELFPAY ==
[2023-09-27] VITALS (60 sets, daily range): BP systolic 107–156; BP diastolic 73–111; PULSE 73–88; RESP 20–24; TEMP 36.4; O2SAT 90–100
--- NOTE | 2023-09-27 12:51 | CRLHL7_ITS ---
For Patients: As a result of the Century Cures Act, medical imaging exams and procedure reports are released immediately into your electronic medical record. You may view this report before your referring provider. If you have questions, please contact your health care provider. INDICATION: Right-sided numbness. Delay in response. Slurred speech. TECHNIQUE: Head CT without contrast. COMPARISON: MRI brain dated 09/09/2022. FINDINGS: There is redemonstrated left parasagittal frontoparietal encephalomalacia, compatible with a remote infarct. Otherwise, mild diffuse parenchymal volume loss with commensurate ex vacuo dilatation of the ventricles and sulci. There are nonspecific low attenuation white matter changes consistent with chronic microvascular disease. No sign of mass, hemorrhage, or midline shift. No skull fractures. IMPRESSION: No acute or significant findings. Please note that all CT scans at this facility use dose modulation, iterative reconstruction, and/or weight-based dosing when appropriate to reduce radiation dose to as low as reasonably achievable. Dictated by Ar Tim MD @ 09/27/2023 1:03:04 PM (Electronically Signed)
--- NOTE | 2023-09-27 13:01 | CRLHL7_ITS ---
For Patients: As a result of the Century Cures Act, medical imaging exams and procedure reports are released immediately into your electronic medical record. You may view this report before your referring provider. If you have questions, please contact your health care provider. Indication: Worsening right-sided weakness and aphasia. Technique: Multisequence multiplanar MRI of the brain without the use of intravenous contrast. Comparison: MRI brain dated 08/01/2023. Findings: New diffusion restriction within the left frontal centrum semiovale. Slight interval increase in size of larger area the diffusion restriction centered in the left parietal lobe. Mild associated T2/FLAIR hyperintensity. Stable chronic infarcts involving the parasagittal left frontal and parietal lobes and right carlito iveth. Punctate focus of susceptibility within the left mesial temporal lobe potentially related to prior microhemorrhage. Similar mild-moderate diffuse parenchymal volume loss. Flow voids of the larger intracranial arteries are preserved. Normal calvarial bone marrow signal intensity. 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 Unchanged opacification of the right mastoid air cells and petrous apex. Impression: 1. New diffusion restriction within the left frontal centrum semiovale consistent with acute or early subacute ischemia. 2. Slight interval increase in size of the area of diffusion restriction within the left parietal lobe, most consistent evolution of subacute ischemia. 3. No evidence of hemorrhagic conversion. 4. Stable chronic infarcts within the parasagittal left frontal and parietal lobes as well as the right carlito iveth. 5. Similar mild-moderate diffuse parenchymal volume loss and chronic small-vessel ischemic changes. 6. Unchanged opacification of the right mastoid air cells and petrous apex. Findings were discussed with Dr. Barron on 09/27/2023 at 5:08 p.m.. Dictated by Elvis Montaño MD @ 09/27/2023 5:16:22 PM (Electronically Signed)
[2023-09-27 13:20] LABS: Basophils Percent Auto 0.5 % (0.0-3.0); Eosinophils Percent Auto 1.4 % (0.0-7.0); Hemoglobin* 16.1 gm/dL (13.5-17.5); Lymphocytes Percent Auto 22.5 % (20-44); Mean Corpuscular HGB Conc 32 gm/dL (32-36); Mean Corpuscular Hemoglobin 28 pg (26-34); Mean Corpuscular Volume 88 fL (80-100); Monocytes Percent Auto 11.5 % (0.0-11.0); Neutrophils Percent Auto 64.1 % (42.0-72.0); Platelet Count* 187 K/uL (140-440); RDW Coefficient of Variation % 13.9 % (11.5-15.5); Red Blood Count 5.82 m/uL (4.30-5.90); White Blood Count* 4.36 K/uL (4.50-11.00)
[2023-09-27 13:22] LABS: Albumin* 4.7 g/dL (3.3-5.0); Chloride* 105 mmol/L (96-114); Sodium* 141 mmol/L (135-149)
[2023-09-27 13:23] LABS: Potassium* 4.3 mmol/L (3.6-5.1)
[2023-09-27 13:25] LABS: Alkaline Phosphatase* 61 U/L (40-150); Anion Gap 8 mEq/L (7-15); Aspartate Amino Transferase* 25 U/L (12-35); Bilirubin Direct* 0.3 mg/dL (0.0-0.5); Bilirubin Total* 0.7 mg/dL (0.1-1.5); Carbon Dioxide* 28 mmol/L (20-32); Estimated Glomerular Filt Rate 83 ml/min; Total Protein* 7.4 g/dL (6.0-8.3)
[2023-09-27 13:26] LABS: Alanine Aminotransferase* 16 U/L (4-50); Blood Urea Nitrogen* 13 mg/dL (7-30); Calcium* 9.2 mg/dL (8.4-10.6); Glucose* 166 mg/dL (60-115)
[2023-09-27 13:28] LABS: C Reactive Protein* 0.5 mg/dL (0.5-1.0)
[2023-09-27 13:30] LABS: Slide Review Reflex No
--- NOTE | 2023-09-27 14:04 | ED_ITS ---
HPI - General Adult General Date Seen: 09/27/23 Chief complaint: Neuro Symptoms/Altered Deficit Stated complaint: possible stroke Time Seen by Provider: 09/27/23 12:41 Source: patient, EMS, RN notes reviewed and old records reviewed Mode of arrival: EMS Limitations: other History of Present Illness HPI narrative: Patient is a 67-year-old male brought in by EMS after his sister called 911. He has a recent significant medical history of an MCA territory stroke, had been seen here mid July with somewhat atypical symptoms of intermittent speech problems, facial twitching and a seizure history, was thought possibly to be having uncontrolled seizures and was transferred to [facility] for neurology care. While there he deteriorated, had an MRI which shown to have an MCA distribution stroke. This was felt to be embolic related to his atrial fibrillation. He was already on Eliquis that time, aspirin was added, he had aphasia and right-sided weakness related to the stroke and was [facility]. He went home from there on Wednesday, he says he is living independently. He does have residual speech difficulties and right-sided weakness, but his sister checked on him today and felt they were worse this morning than they were yesterday, so she called 911. Medics noted that he was somewhat slow to answer questions, the checked a blood sugar which was 261, he was not noted to be significantly hypertensive. Patient told me on arrival that he did not feel that he was significantly worse than usual, but when I talked with him later in his ER stay he said that he did feel like he was worse because his right leg was twitching more. I did note a little facial twitching when I 1st saw him on arrival which has since stopped. He takes Keppra 1000 mg b.i.d. for his seizures. He is anticoagulated on Eliquis and aspirin. He denies headache, chest pain, palpitations, denies feeling sick otherwise, no fevers, vomiting or diarrhea, urinary symptoms, or new pain. He does smell somewhat of urine. Related Data Home Medications ?Medication ?Instructions ?Recorded ?Confirmed insulin detemir U-100 100 unit/mL 22 unit subcut QAM 09/09/22 07/19/23 (3 mL) subcutaneous pen (Levemir FlexPen) sennosides 8.6 mg-docusate sodium 2 tab-cap PO BID PRN constipation 09/09/22 07/19/23 50 mg tablet (Stool Softener-Laxative) Previous Rx's ?Medication ?Instructions ?Recorded tadalafil 20 mg tablet 20 mg PO Q OTHER DAY PRN sexual 06/05/22 activity #6 tabs meclizine 25 mg tablet 25 mg PO .Q6 PRN dizziness #30 tabs 09/11/22 blood sugar diagnostic (Easy Touch #50 ea 03/08/23 Test Strip) blood-glucose meter (Blood Glucose #1 ea 03/08/23 Monitoring kit) pen needle, diabetic 32 gauge x #100 ea 03/10/2302/11 (Novofine 32) furosemide 40 mg tablet 40 mg PO BID #180 tabs 05/20/23 magnesium oxide 400 mg (241.3 mg 400 mg PO DAILY #30 tabs 06/18/23 magnesium) tablet apixaban 5 mg tablet (Eliquis) 5 mg PO BID #180 tabs 06/28/23 empagliflozin 25 mg tablet 25 mg PO QAM #90 tabs 06/28/23 (Jardiance) lancets 23 gauge (Easy Touch #100 ea 06/28/23 Safety Lancets) levetiracetam 1,000 mg tablet See Rx Instructions .Route 06/28/23 .COMPLEX #225 tabs metformin 1,000 mg tablet 1,000 mg PO BIDWMEAL #180 tabs 06/28/23 metoprolol tartrate 50 mg tablet 50 mg PO BID #180 tabs 06/28/23 omeprazole 20 mg capsule,delayed 20 mg PO DAILY #90 caps 06/28/23 release tizanidine 4 mg tablet 2 - 4 mg (0.5 - 1 x 4 mg) PO Q8H 06/30/23 PRN for muscle spasm #36 tabs Allergies Allergy/AdvReac Type Severity Reaction Status Date / Time No Known Allergies Allergy Unknown Verified 07/19/23 18:49 Review of Systems Status of ROS: Reports: 10 or more systems reviewed and unremarkable except as noted in History and below [facility] Medical History Erectile dysfunction ?N52.9 - Male erectile dysfunction, unspecified (ICD-10) Gross hematuria ?R31.0 - Gross hematuria (ICD-10) Sebaceous cyst ?L72.3 - Sebaceous cyst (ICD-10) Edema ?R60.9 - Edema, unspecified (ICD-10) Recurrent pancreatitis Tobacco use ?Z72.0 - Tobacco use (ICD-10) Mastoiditis ?H70.90 - Unspecified mastoiditis, unspecified ear (ICD-10) Surgical History History of tonsillectomy and adenoidectomy ?Z90.89 - Acquired absence of other organs (ICD-10) History of laminectomy ?Z98.890 - Other specified postprocedural states (ICD-10) History of esophageal surgery ?Z98.890 - Other specified postprocedural states (ICD-10) Social History Narrative: . Lives independently. Smoked 40-50 years, 1 pack every 3 days. Quit all alcohol almost a year ago per Dr. Logan's recommendation. Uses marajuana daily to help with sleep. DNR/DNI. What is your current living situation?: I presently have a place to live Problems where you live: mold Problems where you live details: Mold in the basement In the past 12 months, utilities in danger of being shut off: no In past 12 months, lack of transportation kept you from medical appts, meetings, work, or getting things needed for daily living: no In the past 12 mos, have been you worried that your food would run out before you had money to buy more?: sometimes true In the past 12 mos, the food you bought just didn't last and you didn't have money to buy more?: sometimes true Highest level of school completed/degree received: Associate degree: occupational, technical, vocational program Smoking Status: Former smoker Do you use any of these nicotine containing products: None Second hand tobacco smoke exposure: No How often do you have a drink containing alcohol: never How often do you have six or more drinks on one occasion: Never AUDIT-C Alcohol total score: 0 Non-prescribed substance use: marijuana (any form) Non-prescribed substance use details: daily Caffeine: Yes (6 cups daily) How often does anyone, including family, friends and others, physically hurt you : never How often does anyone, including family, friends and others, insult or talk down to you: never How often does anyone, including family, friends and others, threaten you with harm: never How often does anyone, including family, friends and others, scream or curse at you: never service: No Exam Narrative: Exam Narrative: Vital signs as noted above. In general, an alert, nontoxic male, looks older than his stated age. Head: Normocephalic, atraumatic. Eyes: Pupils are equal reactive. Extraocular movements are full. Conjunctivae are normal. ENT: Mucous membranes are moist. Neck: Supple without lymphadenopathy. Heart: Irregularly irregular, rate controlled. No significant murmur. Lungs: Clear bilaterally. No increased work of breathing, crackles or wheezes. Abdomen: Soft and nontender. Obese. Extremities: Some mild edema noted in bilateral lower extremities, pulses intact. Distal CMS intact. Neurologic: Exam on arrival prior to CT was brief, showed him to be alert, he was answering questions but generally with yes or no and not full sentences. Speech slightly dysarthric. He was able to move all 4 extremities although movement on the right side is more limited than on the left. Tongue protruding slightly from his mouth at rest. Affect: Normal. Skin: Warm and dry. Well perfused. Const: Vital Signs, click to edit/add: Vital Signs - 24 hr 09/27/23 17:15 09/27/23 17:30 09/27/23 17:32 Pulse Rate 82 81 80 Blood Pressure 130/93 H Pulse Oximetry 94 95 96 09/27/23 17:33 09/27/23 17:45 09/27/23 18:00 Pulse Rate 80 79 81 Blood Pressure Pulse Oximetry 96 96 96 09/27/23 18:01 09/27/23 18:09 09/27/23 18:15 Pulse Rate 76 76 80 Blood Pressure 140/100 H 141/101 H Pulse Oximetry 96 96 93 09/27/23 18:30 09/27/23 18:32 09/27/23 18:45 Pulse Rate 77 76 84 Blood Pressure 156/96 H Pulse Oximetry 96 92 94 09/27/23 19:00 09/27/23 19:02 09/27/23 19:03 Pulse Rate 79 79 80 Blood Pressure 156/89 H Pulse Oximetry 94 93 97 09/27/23 19:15 09/27/23 19:30 09/27/23 19:32 Pulse Rate 78 77 80 Blood Pressure 151/111 H Pulse Oximetry 93 99 99 09/27/23 19:45 09/27/23 20:00 09/27/23 20:02 Pulse Rate 76 81 81 Blood Pressure 141/94 H Pulse Oximetry 95 99 97 09/27/23 20:15 09/27/23 20:30 09/27/23 20:32 Pulse Rate 79 73 83 Blood Pressure 142/103 H Pulse Oximetry 97 96 95 09/27/23 20:45 Pulse Rate 82 Blood Pressure Pulse Oximetry 92 Documenting provider has reviewed patient's vital signs: yes Course Course ED Course: Patient was evaluated briefly and then went to CT for a noncontrast head CT which by my review did not show acute findings. Radiology read as follow s:FINDINGS: There is redemonstrated left parasagittal frontoparietal encephalomalacia, compatible with a remote infarct. Otherwise, mild diffuse parenchymal volume loss with commensurate ex vacuo dilatation of the ventricles and sulci. There are nonspecific low attenuation white matter changes consistent with chronic microvascular disease. No sign of mass, hemorrhage, or midline shift. No skull fractures. IMPRESSION: No acute or significant findings. Following CT I did talk with Dr. Nichole, on-call for Stroke Neurology at [facility]. Overall, his suspicion was greatest for either seizure or perhaps an underlying conditions such as infection that might be worsening his prior stroke symptoms, but did recommend an MRI to rule out an acute stroke. I think patient has improved since arrival here, his speech is easier to understand and he speaking in more complete sentences after an hour so in the ER. He did not receive any anti seizure medicine acutely, I have not seen any further twitching. Labs thus far show a white blood cell count of 4.4, hemoglobin of 16, metabolic panel shows a normal sodium normal potassium, normal renal function. Blood sugar here was 166. LFTs unremarkable, CRP 0.5. COVID and urinalysis are pending. MRI of the brain is ordered and pending at this time. MRI discussed with radiologist, read as follows:Findings: New diffusion restriction within the left frontal centrum semiovale. Slight interval increase in size of larger area the diffusion restriction centered in the left parietal lobe. Mild associated T2/FLAIR hyperintensity. Stable chronic infarcts involving the parasagittal left frontal and parietal lobes and right carlito iveth. Punctate focus of susceptibility within the left mesial temporal lobe potentially related to prior microhemorrhage. Similar mild-moderate diffuse parenchymal volume loss. Flow voids of the larger intracranial arteries are preserved. Normal calvarial bone marrow signal intensity. 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 Unchanged opacification of the right mastoid air cells and petrous apex. Impression: 1. New diffusion restriction within the left frontal centrum semiovale consistent with acute or early subacute ischemia. 2. Slight interval increase in size of the area of diffusion restriction within the left parietal lobe, most consistent evolution of subacute ischemia. 3. No evidence of hemorrhagic conversion. 4. Stable chronic infarcts within the parasagittal left frontal and parietal lobes as well as the right carlito iveth. 5. Similar mild-moderate diffuse parenchymal volume loss and chronic small- vessel ischemic changes. 6. Unchanged opacification of the right mastoid air cells and petrous apex. Discussed these findings with Dr. Moreno, now on-call for Neurology. Given new ischemic event since July despite adequate anticoagulation and question of possible ongoing seizure contributing to symptoms, we decided he would be best served by transfer back up to the [facility] where he can have continuous video EEG and Neurology consult. He has been otherwise stable here. At this time not requiring additional seizure medications. Signed out to Dr. Sosa as bed delay maybe up to 8 hours. Vital Signs Vital signs: Initial Vital Signs Pulse Oximetry 98 09/27/23 12:51 Vital Signs Pulse Oximetry 98 09/27/23 12:51 Temperature 97.5 F L 09/27/23 12:56 Pulse Rate 82 09/27/23 20:45 Respiratory Rate 20 09/27/23 14:45 Blood Pressure 142/103 H 09/27/23 20:32 Pulse Oximetry 92 09/27/23 20:45 Oxygen Delivery Method Room Air 09/27/23 12:56 Medical Decision Making Lab Data Labs: Lab Results 09/27/23 09/27/23 09/27/23 Range/Units 12:57 13:13 15:29 WBC 4.36 L (4.50-11.00) K/uL RBC 5.82 (4.30-5.90) m/uL Hgb 16.1 (13.5-17.5) gm/dL Hct 51.0 (37.0-53.0) % MCV 88 (80-100) fL MCH 28 (26-34) pg MCHC 32 (32-36) gm/dL RDW Coeff of Ramona 13.9 (11.5-15.5) % Plt Count 187 (140-440) K/uL Neut % (Auto) 64.1 (42.0-72.0) % Lymph % (Auto) 22.5 (20-44) % Bertie % (Auto) 11.5 H (0.0-11.0) % Eos % (Auto) 1.4 (0.0-7.0) % Baso % (Auto) 0.5 (0.0-3.0) % Neut # (Auto) 2.80 (1.7-7.0) K/uL Lymph # (Auto) 1.00 (0.90-2.90) K/uL Bertie # (Auto) 0.50 (0.00-0.90) K/UL Eos # (Auto) 0.10 (0.00-0.50) K/uL Baso # (Auto) 0.00 (0.00-0.30) K/uL Abs Immat Gran (auto) 0.00 (0.00-0.30) K/uL Imm/Tot Granulo (auto) 0.0 % Sodium 141 (135-149) mmol/L Potassium 4.3 (3.6-5.1) mmol/L Chloride 105 (96-114) mmol/L Carbon Dioxide 28 (20-32) mmol/L Anion Gap 8 (7-15) mEq/L BUN 13 (7-30) mg/dL Creatinine 1.0 (0.5-1.5) mg/dL Estimated GFR 83 ml/min Glucose 166 H (60-115) mg/dL Calcium 9.2 (8.4-10.6) mg/dL Total Bilirubin 0.7 (0.1-1.5) mg/dL Direct Bilirubin 0.3 (0.0-0.5) mg/dL AST 25 (12-35) U/L ALT 16 (4-50) U/L Alkaline Phosphatase 61 (40-150) U/L C-Reactive Protein 0.5 (0.5-1.0) mg/dL Total Protein 7.4 (6.0-8.3) g/dL Albumin 4.7 (3.3-5.0) g/dL Urine Color Yellow (Yellow) Urine Appearance Clear (Clear) Urine pH 6.0 (5.0-8.5) Ur Specific [place] 1.015 (1.000-1.030) Urine Protein 2+ A (Negative) Urine Glucose (UA) 3+ A (Negative) Urine Ketones Negative (Negative) Urine Blood Negative (Negative) Urine Nitrite Negative (Negative) Urine Bilirubin Negative (Negative) Urine Urobilinogen 1.0 (0.2-1.0) Ur Leukocyte Esterase Negative (Negative) Urine RBC 0-2 (0-2) Urine WBC 0-2 (0-5) Ur Squamous Epith Cells None (None-Few) Urine Bacteria None (None) SARS-CoV-2 (PCR) Negative SARS-CoV-2 (Negative) Influenza Type A (PCR) Negative PCR FLU A (Negative) Influenza Type B (PCR) Negative PCR FLU B (Negative) RSV (PCR) Negative PCR RSV (Negative) Discharge Plan Discharge Patient Disposition: Xfer Other Discharge Location: [facility] Prescriptions: No Action Eliquis 5 mg tablet 5 mg PO BID Qty: 180 4RF Jardiance 25 mg tablet 25 mg PO QAM Qty: 90 3RF (DME) Easy Touch Safety Lancets 23 gauge misc See Rx Instructions .Route Qty: 100 4RF Rx Instructions: TEST Once DAILY levetiracetam 1,000 mg tablet See Rx Instructions .ROUTE .COMPLEX Qty: 225 3RF Dose Instruction: TAKE 1 TABLET BY MOUTH IN THE MORNING AND 1.5 TABLETS AT BEDTIME Rx Instructions: TAKE 1 TABLET BY MOUTH IN THE MORNING AND 1.5 TABLETS AT BEDTIME metformin 1,000 mg tablet 1,000 mg PO BIDWMEAL Qty: 180 3RF metoprolol tartrate 50 mg tablet 50 mg PO BID Qty: 180 3RF omeprazole 20 mg capsule,delayed release(DR/EC) 20 mg PO DAILY Qty: 90 3RF sennosides-docusate sodium [Stool Softener-Laxative] 8.6-50 mg Tablet 2 tab-cap PO BID PRN (Reason: constipation) Levemir FlexPen 100 unit/mL (3 mL) Insulin Pen 22 unit subcut QAM tadalafil 20 mg tablet 20 mg PO Q OTHER DAY PRN (Reason: sexual activity) Qty: 6 5RF meclizine 25 mg tablet 25 mg PO .Q6 PRN (Reason: dizziness) Qty: 30 2RF (DME) blood-glucose meter [Blood Glucose Monitoring] Kit See Rx Instructions .Route Qty: 1 0RF Rx Instructions: TEST BID (DME) Easy Touch Test Strip Strip See Rx Instructions .Route Qty: 50 4RF Rx Instructions: TEST TWICE DAILY (DME) pen needle, diabetic [Novofine 32] 32 gauge x 1/4 needle See Rx Instructions .Route Qty: 100 3RF Rx Instructions: ONCE DAILY furosemide 40 mg tablet 40 mg PO BID Qty: 180 1RF magnesium oxide 400 mg (241.3 mg magnesium) tablet 400 mg PO DAILY Qty: 30 6RF tizanidine 4 mg tablet 2 - 4 mg PO Q8H PRN (Reason: for muscle spasm) Qty: 36 0RF Stand Alone Forms: MyHealth Info Instructions
[2023-09-27 14:06] LABS: PCR FLU A Negative PCR FLU A (Negative); PCR FLU B Negative PCR FLU B (Negative); PCR RSV Negative PCR RSV (Negative); SARS PCR* Negative SARS-CoV-2 (Negative)
--- NOTE | 2023-09-27 14:14 | ED.NURSE ---
Pt is alert and oriented X4 at this time. Difficulty with finding words is observed. Mouth is appearing to have tremors at this time.
[2023-09-27 15:38] LABS: Appearance Urine Clear (Clear); Bilirubin Urine Negative (Negative); Blood Urine Negative (Negative); Color Urine Yellow (Yellow); Glucose Urine 3+ (Negative); Ketones Urine Negative (Negative); Leukocyte Esterase Urine Negative (Negative); Nitrite Urine Negative (Negative); Protein Urine 2+ (Negative); Specific Gravity Urine 1.015 (1.000-1.030)
[2023-09-27 15:52] LABS: RBC Urine 0-2 (0-2); WBC Urine 0-2 (0-5)
--- NOTE | 2023-09-27 16:40 | ED.NURSE ---
Pt to MRI imaging at 1420
--- OUTSIDE RECORDS SUMMARY | 2023-09-27 18:11 | XMS_ITS | Data Portability ---
Author Organization [place] [facility] Address [address] [place] [address] Assessment No assessment recorded. Plan of Treatment Reminders Order Date Submit Date Provider Last Modified By Organization Details Last Modified Time Details Appointments None recorded. Lab urinalysis, dipstick 2022 023 [email or web address] [id number] [facility], [address], [place], [address], 3 11:36:38 Referral None recorded. Procedures None [...] Available [facility] [address], [place], [address], 03/26/2022 11:36:14 03/26/19 23 03/26/2022 urina lysis , dipst ick pH-Status 6.0 Not Available [facility] [address], [place], [address], 03/26/2022 11:36:14 03/26/19 23 03/26/2022 urina lysis , dipst ick Nitrates-Sta tus negati ve Not Available [facility] [address], [place], [address], 03/26/2022 11:36:14 03/26/19 23 03/26/2022 urina lysis , dipst ick Blood-Status Large Not Available [facility] [address], [place], [address], 03/26/2022 11:36:14 03/26/19 23 03/26/2022 urina lysis , dipst ick Leuko-Status Negati ve Not Available [facility] [address], [place], [address], 03/26/2022 11:36:14 Result Notes None recorded. Problems Name Status Onset Date Resolution Date Notes Provider Name and Address Organization Details Recorded Time Malignant tumor of prostate Active 05/06/19 17 C61 : Malignant neoplasm of prostate Not [facility] 07/27/2019 02:07:27 Carcinoma of prostate Active 03/26/19 23 Baron Burt MD [address] [place] [address],[address], [address], [facility] 03/26/2022 11:52:55 Blood in urine Active 03/26/19 23 Baron Burt MD [address] [place] [address],[address], [address], [facility] 03/26/2022 11:55:16 Problem Notes None recorded. Procedures Surgical History Date Name Laterality Status Provider Name and Address Organization Details Recorded Time procedure on back completed Silvana yeung [facility] 03/26/2022 11:36:06 Imaging Results None recorded. [...] Updated DateTime 03/26/2022 182.88 cm 52.9 kg/m2 988298.02 g Silvana Mckeon [facility] 03/26/2022 11:34:15 Social History Question Answer Notes LastModified by Organizat ion Details LastModified Time Tobacco Smoking Status Former Smoker Silvana yeung [facility] 03/26/2022 11:35:06 What Is Your Level Of Alcohol Consumption? None Information not available 03/26/2022 What Is Your Level Of Caffeine Consumption? Moderate [email or web address] Information not available 03/26/2022 What Was The Date Of Your Most Recent Tobacco Screening? 03/26/2022 Information not available 03/26/2022 Do You Use Any Illicit Or Recreational Drugs? No [email or web address] Information not available 03/26/2022 Sex: Unknown Functional Status None recorded. Mental Status None recorded. Family History Nothing Reported. Medical History Condition Response GERD/Acid Reflux Y Diabetes Y High Blood Pressure Y Cancer Y Immunizations Vaccine Type Date Status Provider Name and Address Organization Details Recorded Time pneumococcal polysaccharide PPV23 04/14/2000 completed Silvana yeung [facility] 03/26/2022 11:28:45 Past Encounters Encounter ID Performer Location Encounter Start Date Encounter Closed Date Diagnosis/Indication Diagnosis SNOMED-CT Code [id number] Baron Burt MD [facility] [address] [place], [place] [address]e. [place] [address] 03/26/2022 11:11:02 03/30/2022 13:49:57 Blood in urine [id number] Carcinoma of prostate 25 [id number] Health Concerns Section Related Observation LastModified by Organization Detai ls LastModified Time None Recorded Concern Status LastModified by Organization Details LastModified Time None Recorded Advance Directives Directive None Recorded Payers Encounter Date Sequence Insurance Name Policy Number Policy Perdomo Covered Member ID Perdomo Member ID Guarantor Name 03/26/2022 1 [place] redeal[place] Anoop Myers [id number] 5 Anoop Myers Notes Date Note Type Note Provider Name and Address Organization Details Recorded Time 03/26/2022 text/html HPI Notes: New patient referred for painless gross hematuria. He was originally referred to me in 2014 for a PSA of 10.6. Biopsy showed Laure 3+3 prostate cancer and he was initially on active surveillance but PSA shena to 12.8 and he had an MRI showing a PI-RADS 4 lesion. Targeted biopsies showed Laure 4+4 prostate cancer. He completed external beam radiation in 2017 along with 2 years of androgen deprivation therapy. He has been lost to follow-up in our clinic since 04/06/2017. I reviewed the most recent clinic notes from Dr. Isaac Logan dated 02/13/[address] abdomen and pelvis with IV contrast report from [facility] dated 02/13/2022. This shows normal kidneys bilaterally [...] 20 mg as needed. Baron Burt MD [address], [place], [address], [facility] 03/26/2022 11:56:15
--- OUTSIDE RECORDS SUMMARY | 2023-09-27 18:11 | XMS_ITS | Clinical Summary ---
Author Organization [employer] [facility] Address [place], [place] [address] Care Team Providers Care Translation Director Name Role Phone Isaac Logan MD Primary Care Provider [phone] [facility], [place] Unavailable Allergies No known active allergies Medications Medication Sig Dispensed Refills Start Date End Date Status metFORMIN (GLUCOPHAGE) 1,000 mg tabletIndications: Type 2 diabetes mellitus with stage 2 chronic kidney disease, without long-term current use of insulin (HC) Take 1 tablet by mouth 2 times daily with meals. 30 tablet 05/04/2018 Active Eliquis 5 mg tablet Take 5 mg by mouth two times daily. 07/12/2023 Active levETIRAcetam (KEPPRA) 750 mg tabletIndications: Complex partial seizure disorder (HC) Take 2 Tablets (1,500 mg) by mouth two times daily. 07/26/2023 Active insulin aspart, U-100, (NOVOLOG FLEXPEN) 100 unit/mL (3 mL) penIndications:Typ e 2 diabetes mellitus with stage 2 chronic kidney disease, without long-term current use of insulin (HC) Give subcutaneous TID with meals per blood glucose (mg/dL). Don't give corrective dose for PRN, post-prandial or nocturnal glucose checks unless ordered. Blood Glucose.....Dose <70...............S ee Hypoglycemia Protocol 70-149..........No insulin, give prandial insulin, if ordered 150-199........1 unit 200-249........2 units 250-299........3 units 300-349........4 units 350-399........5 units 400 or greater....6 units & call MD 07/26/2023 Active aspirin (ECOTRIN) 81 mg enteric coated tabletIndications: Acute ischemic left MCA stroke (HC) Take 1 Tablet (81 mg) by mouth once daily with a meal. 08/20/2023 Active furosemide (LASIX) 20 mg tabletIndications: Congestive heart failure, unspecified HF chronicity, unspecified heart failure type (HC),HTN (hypertension) Take 1 Tablet (20 mg) by mouth once daily in the morning. Hold for systolic blood pressure less than 100. 08/20/2023 Active insulin detemir U-100 (LEVEMIR) 100 unit/mL (3 mL) penIndications:Typ e 2 diabetes mellitus with stage 2 chronic kidney disease, without long-term current use of insulin (HC) Inject 15 units subcutaneous once daily in the evening. 08/18/2023 Active Jardiance 25 mg tabletIndications: Congestive heart failure, unspecified HF chronicity, unspecified heart failure type (HC),Type 2 diabetes mellitus with stage 2 chronic kidney disease, without long-term current use of insulin (HC) Take 1 Tablet (25 mg) by mouth once daily. 08/20/2023 Active magnesium oxide (MAG-OX 400) 400 mg tabletIndications: Atrial fibrillation, unspecified type (HC) Take 1 Tablet (400 mg) by mouth once daily. 08/20/2023 Active metoprolol tartrate (LOPRESSOR) 50 mg tabletIndications: HTN (hypertension),Per sistent atrial fibrillation (HC) Take 1 Tablet (50 mg) by mouth two times daily. Hold for systolic blood pressure less than 100 or heart rate less than 55 beats per minute. 08/18/2023 Active omeprazole (PRILOSEC) 20 mg Delayed-Release capsuleIndications :Gastroesophageal reflux disease, unspecified whether esophagitis present Take 1 Capsule (20 mg) by mouth once daily before a meal. 08/20/2023 Active acetaminophen (TYLENOL) 325 mg tabletIndications: Acute ischemic left MCA stroke (HC) Take 2 Tablets (650 mg) by mouth every 4 hours if needed for Pain or Headache. Max acetaminophen dose: 4000mg in 24 hrs. 08/18/2023 Active artificial tears, peg 400 0.4%-propylene glycol 0.3%, (SYSTANE) ophthalmicIndicati ons:Acute ischemic left MCA stroke (HC) Place 2 Drops into both eyes 4 times daily if needed for Dry Eyes. 08/18/2023 Active polyethylene glycol (MIRALAX; GLYCOLAX) 17 g per packet packetIndications: Acute ischemic left MCA stroke (HC) Mix 17 g (1 Packet) in liquid then take by mouth once daily if needed for Constipation. 08/18/2023 Active memantine (NAMENDA) 10 mg tabletIndications: Expressive aphasia Take 1 Tablet (10 mg) by mouth once daily. For 71 days. Last dose on 10/29/23, then stop. 08/20/2023 Active lamoTRIgine (LAMICTAL) 25 mg tabletIndications: Complex partial seizure disorder (HC) Take 1 Tablet (25 mg) by mouth two times daily for 2 days. THEN starting 08/21/23, take 2 Tablets (50 mg) by mouth two times daily for 14 days. THEN starting 09/04/23, take 3 Tablets (75 mg) by mouth two times daily for 7 days. THEN starting 09/11/23, take 4 tablets (100 mg) by mouth twice daily and STAY at this dose. 08/19/2023 Active rosuvastatin (CRESTOR) 40 mg tabletIndications: Cerebrovascular accident (CVA), unspecified mechanism (HC) Take 1 Tablet (40 mg) by mouth at bedtime. 90 Tablet 09/21/2023 2023 Active Active Problems Problem Noted Date Diagnosed Date Acute ischemic left MCA stroke 07/26/2023 Expressive aphasia 07/21/2023 History of CVA (cerebrovascular [...] Encounters Date Type Department Care Team Description 09/27/2023 11:59 PM CDT Hospital Encounter [facility] [address] [facility] [address] [facility], U Hospitalist Svc 09/24/2023 Transcribe Orders [facility] [address] [place] [address] Candice Fowler NP 09/23/2023 2:00 PM CDT Ancillary Procedure [facility] [address] [place] [address] Arrived 09/23/2023 1:45 PM CDT Orders Only [facility] [address] [place] [address] Lab, [facility] 09/23/2023 Travel 09/21/2023 11:30 AM CDT Office Visit [facility] [address] [place] [address] Nasreen Rod MBBS CV General Cardiology New (NEW PT ESTABLISHING CARE: /DX:Chronic diastolic congestive heart failure, atrial fibrillation, hypertension. Needs establish care with cardiology. Recent hospitalization for stroke. /Please send office visit notes to patient's primary care provider who will be following outpatient. ///PCP: Isaac Logan MD//) 09/21/2023 Travel 09/16/2023 11:00 AM CDT Office Visit [facility] [address] [place] [address] Barbara Lux NP Follow Up 09/16/2023 Travel 09/16/2023 Telephone [facility] [address] [place] [phone] Barbara Lux NP Failed Appointment 09/15/2023 Telephone [facility] [address] [place] [phone] Barbara Lux NP Appointment Reminder 08/13/2023 Telephone [facility] [address] [place] [address] Genoveva Watkins NP Hospital F/U 07/26/2023 4:39 PM CDT - 08/19/2023 3:42 PM CDT Hospital Encounter [facility] [address] [place] [address] Corey Suazo DO Acute ischemic left MCA stroke (HC) (Primary Dx); Obstructive sleep apnea; Vision impairment; Congestive heart failure, unspecified HF chronicity, unspecified heart failure type (HC); HTN (hypertension); Atrial fibrillation, unspecified type (HC); History of CVA (cerebrovascular accident); Type 2 diabetes mellitus with stage 2 chronic kidney disease, without long-term current use of insulin (HC); Persistent atrial fibrillation (HC); Gastroesophageal reflux disease, unspecified whether esophagitis present; Expressive aphasia; Complex partial seizure disorder (HC) Discharge Disposition: Fdc Facility 07/20/2023 3:16 AM CDT - 07/26/2023 4:30 PM CDT Hospital Encounter [facility] [address] [place] [address] [facility], MD Lisset Patiño, MD Kalyani Snell Craig Lyman, MD Seizure (HC) (Primary Dx); Complex partial seizure disorder (HC); History of CVA (cerebrovascular accident); HTN (hypertension); Type 2 diabetes mellitus with stage 2 chronic kidney disease, without long-term current use of insulin (HC) Discharge Disposition: Rehab Facility or Unit from Last 3 Months Immunizations Name Administration [...] Comments:1/2 PPD Alcohol Use Standard Drinks/Week Comments Not Currently 0 (1 standard drink = 0.6 oz [...] Sign Reading Time Taken Comments Blood Pressure 98/50 09/21/2023 11:21 AM CDT Pulse 65 09/21/2023 11:21 AM CDT Temperature 36.5 ??C (97.7 ??F) 08/19/2023 7:16 AM CD T Respiratory Rate 18 08/19/2023 7:16 AM CDT Oxygen Saturation 95% 09/21/2023 11:21 AM CDT Inhaled Oxygen Concentration - - Weight 152 kg (335 lb) 09/16/2023 11:19 AM CDT Height 182.9 cm (6') 09/21/2023 11:21 AM CDT Body Mass Index 45.43 09/16/2023 11:19 AM CDT Plan of Treatment Upcoming Encounters Date Type Department Care Team (Late st Contact Info) Description 11/01/2023 1:30 PM CDT Office Visit [facility] [address] [place] [phone] Gt Mauro PA [address] [place] [address] 11/22/2023 10:45 AM CDT Office Visit [facility] [address] [place] [address] Corey Suazo, [address] [place] [address] Health Maintenance Due Date Last Done Comments Depression screening for age 12+ 1967 Hepatitis C screening for ag e 18-79 [...] history exists Tetanus booster 11/30/2023 11/29/2013, 09/11/2008 BMI (ht and wt on same day) for age 18+ 09/15/2024 09/16/2023 Lipids for age 45-75 07/19/2028 07/20/2023, 10/05/19 10 Tdap Completed 11/29/2013, 09/11/2008 AAA screening age 65-74 Completed 09/23/2023, 04/06 Procedures Procedure Name Priority Date/Time Associated Diagnosis Comments CT CHEST ABDOMEN PELVIS W Routine 09/23/2023 3:14 PM CDT Acute ischemic left MCA stroke (HC) CREATININE,ISTAT Routine 09/23/2023 2:53 PM CDT Observation or evaluation for suspected condition EKG 12 LEAD Routine 09/21/2023 11:11 AM CDT Paroxysmal atrial fibrillation (HC) GLUCOSE METER Timed 08/19/2023 12:03 PM CDT GLUCOSE METER Timed 08/19/2023 7:42 AM CDT GLUCOSE METER Timed 08/18/2023 9:16 PM CDT GLUCOSE METER Timed 08/18/2023 4:31 PM CDT GLUCOSE METER Timed 08/18/2023 11:59 AM CDT GLUCOSE METER Timed 08/18/2023 11:37 AM CDT GLUCOSE METER Timed 08/18/2023 7:45 AM CDT CREATININE Early AM 08/18/2023 5:43 AM CDT GLUCOSE METER Timed 08/17/2023 9:19 PM CDT GLUCOSE METER Timed 08/17/2023 4:31 PM CDT GLUCOSE METER Timed 08/17/2023 12:08 PM CDT GLUCOSE METER Timed 08/17/2023 8:08 AM CDT POTASSIUM Early AM 08/17/2023 6:24 AM CDT SODIUM Early AM 08/17/2023 6:24 AM CDT CREATININE Early AM 08/17/2023 6:24 AM CDT GLUCOSE METER Timed 08/16/2023 9:22 PM CDT GLUCOSE METER Timed 08/16/2023 4:32 PM CDT GLUCOSE METER Timed 08/16/2023 11:08 AM CDT GLUCOSE METER Timed 08/16/2023 7:29 AM CDT CREATININE Timed 08/16/2023 5:06 AM CDT GLUCOSE METER Timed 08/15/2023 9:09 PM CDT GLUCOSE METER Timed 08/15/2023 4:52 PM CDT GLUCOSE METER Timed 08/15/2023 11:46 AM CDT GLUCOSE METER Timed 08/15/2023 7:45 AM CDT GLUCOSE METER Timed 08/14/2023 9:34 PM CDT GLUCOSE METER Timed 08/14/2023 4:56 PM CDT GLUCOSE METER Timed 08/14/2023 12:18 PM CDT GLUCOSE METER Timed 08/14/2023 7:46 AM CDT GLUCOSE METER Timed 08/13/2023 9:05 PM CDT GLUCOSE METER Timed 08/13/2023 4:44 PM CDT GLUCOSE METER Timed 08/13/2023 12:11 PM CDT GLUCOSE METER Timed 08/13/2023 7:31 AM CDT GLUCOSE METER Timed 08/12/2023 9:24 PM CDT GLUCOSE METER Timed 08/12/2023 8:38 PM CDT GLUCOSE METER Timed 08/12/2023 5:03 PM CDT GLUCOSE METER Timed 08/12/2023 11:36 AM CDT GLUCOSE METER Timed 08/12/2023 7:55 AM CDT GLUCOSE METER Timed 08/11/2023 11:02 PM CDT GLUCOSE METER Timed 08/11/2023 5:10 PM CDT GLUCOSE METER Timed 08/11/2023 11:59 AM CDT GLUCOSE METER Timed 08/11/2023 7:49 AM CDT GLUCOSE METER Timed 08/11/2023 7:39 AM CDT GLUCOSE METER Timed 08/10/2023 9:16 PM CDT CO2,TOTAL ULI 08/10/2023 5:56 PM CDT GLUCOSE METER Timed 08/10/2023 4:56 PM CDT GLUCOSE METER Timed 08/10/2023 12:03 PM CDT GLUCOSE METER Timed 08/10/2023 8:03 AM CDT GLUCOSE METER Timed 08/09/2023 8:55 PM CDT GLUCOSE METER Timed 08/09/2023 4:40 PM CDT CREATININE Timed 08/09/2023 12:53 PM CDT GLUCOSE METER Timed 08/09/2023 12:05 PM CDT GLUCOSE METER Timed 08/09/2023 8:53 AM CDT GLUCOSE METER Timed 08/08/2023 9:37 PM CDT GLUCOSE METER Timed 08/08/2023 4:23 PM CDT GLUCOSE METER Timed 08/08/2023 11:36 AM CDT GLUCOSE METER Timed 08/08/2023 7:46 AM CDT GLUCOSE METER Timed 08/07/2023 9:19 PM CDT GLUCOSE METER Timed 08/07/2023 4:41 PM CDT GLUCOSE METER Timed 08/07/2023 11:53 AM CDT GLUCOSE METER Timed 08/07/2023 7:46 AM CDT GLUCOSE METER Timed 08/06/2023 9:17 PM CDT GLUCOSE METER Timed 08/06/2023 4:19 PM CDT GLUCOSE METER Timed 08/06/2023 11:47 AM CDT GLUCOSE METER Timed 08/06/2023 7:38 AM CDT GLUCOSE METER Timed 08/05/2023 9:17 PM CDT GLUCOSE METER Timed 08/05/2023 4:27 PM CDT GLUCOSE METER Timed 08/05/2023 12:15 PM CDT GLUCOSE METER Timed 08/05/2023 7:53 AM CDT GLUCOSE METER Timed 08/04/2023 8:59 PM CDT GLUCOSE METER Timed 08/04/2023 5:15 PM CDT GLUCOSE METER Timed 08/04/2023 11:41 AM CDT GLUCOSE METER Timed 08/04/2023 7:58 AM CDT GLUCOSE METER Timed 08/03/2023 9:02 PM CDT GLUCOSE METER Timed 08/03/2023 4:54 PM CDT GLUCOSE METER Timed 08/03/2023 12:12 PM CDT GLUCOSE METER Timed 08/03/2023 8:12 AM CDT GLUCOSE METER Timed 08/02/2023 9:02 PM CDT GLUCOSE METER Timed 08/02/2023 4:52 PM CDT GLUCOSE METER Timed 08/02/2023 12:19 PM CDT GLUCOSE METER Timed 08/02/2023 7:23 AM CDT T4,FREE ULI 08/02/2023 6:18 AM CDT TSH ULI 08/02/2023 6:18 AM CDT CREATININE Timed 08/02/2023 6:18 AM CDT MR HEAD BRAIN WO Routine 08/01/2023 9:59 PM CDT GLUCOSE METER Timed 08/01/2023 8:48 PM CDT GLUCOSE METER Timed 08/01/2023 5:34 PM CDT GLUCOSE METER Timed 08/01/2023 11:40 AM CDT GLUCOSE METER Timed 08/01/2023 6:57 AM CDT GLUCOSE METER Timed 07/31/2023 9:10 PM CDT GLUCOSE METER Timed 07/31/2023 8:[address] ANGIO HEAD AND NECK CAROTID STAT 07/31/2023 5:[address] HEAD BRAIN WO STAT 07/31/2023 5:22 PM CDT GLUCOSE METER Timed 07/31/2023 4:47 PM CDT XR FOOT 3 VIEWS RIGHT PORTABLE Routine 07/31/2023 1:45 PM CDT XR ANKLE 3 VIEWS RIGHT PORTABLE Routine 07/31/2023 1:37 PM CDT GLUCOSE METER Timed 07/31/2023 12:19 PM CDT GLUCOSE METER Timed 07/31/2023 7:23 AM CDT GLUCOSE METER Timed 07/30/2023 10:57 PM CDT GLUCOSE METER Timed 07/30/2023 8:29 PM CDT GLUCOSE METER Timed 07/30/2023 4:29 PM CDT GLUCOSE METER Timed 07/30/2023 12:10 PM CDT GLUCOSE METER Timed 07/30/2023 8:15 AM CDT GLUCOSE METER Timed 07/30/2023 7:41 AM CDT GLUCOSE METER Timed 07/29/2023 9:37 PM CDT GLUCOSE METER Timed 07/29/2023 5:16 PM CDT GLUCOSE METER Timed 07/29/2023 11:42 AM CDT GLUCOSE METER Timed 07/29/2023 7:55 AM CDT GLUCOSE METER Timed 07/29/2023 7:34 AM CDT GLUCOSE METER Timed 07/28/2023 9:24 PM CDT GLUCOSE METER Timed 07/28/2023 4:34 PM CDT GLUCOSE METER Timed 07/28/2023 12:09 PM CDT GLUCOSE METER Timed 07/28/2023 7:39 AM CDT GLUCOSE METER Timed 07/27/2023 9:03 PM CDT GLUCOSE METER Timed 07/27/2023 4:37 PM CDT GLUCOSE METER Timed 07/27/2023 11:29 AM CDT GLUCOSE METER Timed 07/27/2023 7:39 AM CDT MAGNESIUM Early AM 07/27/2023 5:46 AM CDT WHITE BLOOD COUNT Early AM 07/27/2023 5:4 6 AM CDT BASIC METABOLIC PANEL Early AM 07/27/2023 5:46 AM CDT GLUCOSE METER Timed 07/26/2023 9:00 PM CDT GLUCOSE METER Timed 07/26/2023 5:08 PM CDT GLUCOSE METER Timed 07/26/2023 12:10 PM CDT GLUCOSE METER Timed 07/26/2023 8:00 AM CDT GLUCOSE METER Timed 07/25/2023 9:44 PM CDT GLUCOSE METER Timed 07/25/2023 7:27 PM CDT GLUCOSE METER Timed 07/25/2023 1:03 PM CDT GLUCOSE METER Timed 07/25/2023 7:16 AM CDT GLUCOSE METER Timed 07/24/2023 9:19 PM CDT GLUCOSE METER Timed 07/24/2023 5:07 PM CDT GLUCOSE METER Timed 07/24/2023 11:49 AM CDT CONTINUOUS VIDEO EEG MONITORING Routine 07/24/2023 8:05 AM CDT GLUCOSE METER Timed 07/24/2023 7:44 AM CDT LEVETIRACETAM (KEPPRA) Timed 07/24/2023 4:58 AM CDT GLUCOSE METER Timed 07/23/2023 9:54 PM CDT GLUCOSE METER Timed 07/23/2023 5:34 PM CDT MR HEAD BRAIN WO Routine 07/23/2023 4:01 PM CDT GLUCOSE METER Timed 07/23/2023 1:15 PM CDT [...] CDT from Last 3 Months Results * CT CHEST ABDOMEN PELVIS W (09/23/2023 3:14 PM CDT) Anatomical Region Laterality Modality Abdomen, Pelvis, AORTA, LIVER, SPLEEN, CHEST Computed Tomography 09/25/2023 10:2 7 PM CDT Impressions 09/25/2023 10:27 PM CDT 1. No evidence for metastatic disease. 2. 1.9 cm left thyroid lobe nodule. Recommend routine thyroid ultrasound for further evaluation, if not previously performed. Please note that all CT scans at this facility use dose modulation, iterative reconstruction, and/or weight-based dosing when appropriate to reduce radiation dose to as low as reasonably achievable. Dictated by Ruben Cooper MD @ 09/25/2023 10:27:34 PM (Electronically Signed) Narrative 09/25/2023 10:27 PM CDT For Patients: ??As a result of the 21st Century Cures Act, medical imaging exams and procedure reports are released immediately into your electronic medical record. ??You may view this report before your referring provider. ??If you have questions, please contact your health care provider. INDICATION: Metastatic disease evaluation. TECHNIQUE: CT chest, abdomen and pelvis acquired with IV contrast. COMPARISON: CT abdomen and pelvis 04/06/2016. FINDINGS: CHEST Lungs and pleura: Lungs are clear. No suspicious nodules or infiltrates. ??No effusions, thickening, or pneumothorax. Heart and vasculature: Heart size is mildly enlarged. Thoracic aorta and pulmonary artery are normal in caliber. Heavy coronary artery calcification Lymph node/mediastinum: No mediastinal, hilar, or axillary adenopathy. Chest wall: Mild anasarca. Thyroid: 1.9 cm left thyroid lobe nodule. Bones: No suspicious bone lesions. Multilevel thoracic spondylosis with findings compatible with diffuse idiopathic skeletal hyperostosis. ABDOMEN AND PELVIS: Liver: Normal in caliber and attenuation. No masses. Gallbladder and bile ducts: Unremarkable. Pancreas: Unremarkable. Spleen: Normal in caliber. No masses. Adrenal glands: Unremarkable. No masses. Kidneys: Normal in caliber. No suspicious masses. GI tract: Normal in caliber and appearance. No sign of mass or inflammation. Normal appendix. Vasculature: Normal caliber abdominal aorta with mild atherosclerotic calcification. Mesenteric arteries are patent. Lymph nodes: No lymphadenopathy. Omentum/peritoneum/retroperitoneum/abdominal wall: No masses. Mild anasarca. No free air or significant free fluid. Pelvic organs: Unremarkable. Bones: No suspicious bone lesions. Procedure Note Ruben Cooper MD - 09/25/2023 For Patients: As a result of the Century Cures Act, medical imagingexams and procedure reports are released immediately into your electronicmedical record. You may view this report before your referring provider.If you have questions, please contact your health care provider. INDICATION: Metastatic disease evaluation. TECHNIQUE: CT chest, abdomen and pelvis acquired with IV contrast. COMPARISON: CT abdomen and pelvis 04/06/2016. FINDINGS: CHEST Lungs and pleura: Lungs are clear. No suspicious nodules or infiltrates.No effusions, thickening, or pneumothorax. Heart and vasculature: Heart size is mildly enlarged. Thoracic aorta andpulmonary artery are normal in caliber. Heavy coronary arterycalcification Lymph node/mediastinum: No mediastinal, hilar, or axillary adenopathy. Chest wall: Mild anasarca. Thyroid: 1.9 cm left thyroid lobe nodule. Bones: No suspicious bone lesions. Multilevel thoracic spondylosis withfindings compatible with diffuse idiopathic skeletal hyperostosis. ABDOMEN AND PELVIS: Liver: Normal in caliber and attenuation. No masses. Gallbladder and bile ducts: Unremarkable. Pancreas: Unremarkable. Spleen: Normal in caliber. No masses. Adrenal glands: Unremarkable. No masses. Kidneys: Normal in caliber. No suspicious masses. GI tract: Normal in caliber and appearance. No sign of mass orinflammation. Normal appendix. Vasculature: Normal caliber abdominal aorta with mild atheroscleroticcalcification. Mesenteric arteries are patent. Lymph nodes: No lymphadenopathy. Omentum/peritoneum/retroperitoneum/abdominal wall: No masses. Mildanasarca. No free air or significant free fluid. Pelvic organs: Unremarkable. Bones: No suspicious bone lesions. IMPRESSION: 1. No evidence for metastatic disease. 2. 1.9 cm left thyroid lobe nodule. Recommend routine thyroid ultrasoundfor further evaluation, if not previously performed. Please note that all CT scans at this facility use dose modulation,iterative reconstruction, and/or weight-based dosing when appropriate toreduce radiation dose to as low as reasonably achievable. Dictated by Ruben Cooper MD @ 09/25/2023 10:27:34 PM (Electronically Signed) Barbara Lux NP CT * (ABNORMAL) CREATININE,ISTAT (09/23/2023 2:53 PM CDT) CREATININE, POCT 1.20(H) 0.57 - 1.11 mg/dL 09/23/2023 2:56 PM CDT [facility] Comment:Caution: Patients ta cruz Hydroxyurea have falsely increased iStat Creatinine results. Verify creatinine results ordering a Creatinine (86946.2) eGFR 67(L) >90 mL/min/1.7 3m2 09/23/2023 2:56 PM CDT [facility] Comment:As of 2021, eG FR is calculated by the CKD-EPI creatinine equation without race adjustment. eGFR can be influenced by muscle mass, exercise, and diet. The reported eGFR is an estimation only and is only applicable if the renal function is stable. Blood BLOOD SPECIMEN / Unknown 09/23/2023 2:53 PM CDT 09/23/2023 2:56 PM CDT Barbara Lux NP CHEMISTRY [facility] [address] [place] [address], [place] [phone] * EKG 12 LEAD (09/21/2023 11:11 AM CDT) Only the most recent of2 resultswithin the time period is included. Interpretation Atrial fibrillation Low voltage QRS Abnormal ECG Ventricular Rate 80 BPM Atrial Rate BPM P-R Interval ms QRS Duration 82 ms QT 392 ms QTc 452 ms P Stafford degrees R Stafford -24 degrees T Stafford 49 degrees 09/21/2023 11:1 1 AM CDT 09/21/2023 4:19 PM CDT Nasreen Rod MBDAKSHA EKG ORD * (ABNORMAL) GLUCOSE METER (08/19/2023 12:03 PM CDT) Only the most recent of132 resultswithin the time period is included. Pathologist [facility] GLUCOSE METER 219(H) 65 - 100 mg/dL 08/19/2023 12:04 PM CDT [facility] Blood BLOOD SPECIMEN / Unknown 08/19/2023 12:03 PM CDT 08/19/2023 12:04 PM CDT Corey Suazo DO CHEMISTRY Performing Organization Address City/[facility]/ZIP Co de Phone Number [facility] [address] [place] [id number], [place] * (ABNORMAL) Creatinine AM (08/18/2023 5:43 AM CDT) Only the most recent of6 resultswithin the time period is included. eGFR 73(L) >90 mL/min/1.7 3m2 08/18/2023 7:18 AM CDT [facility] Comment:As of 2021, eG FR is calculated by the CKD-EPI creatinine equation without race adjustment. ??eGFR can be influenced by muscle mass, exercise, and diet. ??The reported eGFR is an estimation only and is only applicable if the renal function is stable. CREATININE 1.11 0.70 - 1.20 mg/dL 08/18/2023 7:18 AM CDT [facility] Blood BLOOD SPECIMEN / Unknown Butterfly / Unknown 08/18/2023 5:43 AM CDT 08/18/2023 6:27 AM CDT Senthil Mon MD CHEMISTRY Performing Organization Address City/[facility] Co de Phone Number [facility] [address] [place] [address], [place] * SODIUM (08/17/2023 6:24 AM CDT) Only the most recent of2 resultswithin the time period is included. SODIUM 138 136 - 145 mmol/L 08/17/2023 7:36 AM CDT [facility] Blood BLOOD SPECIMEN / Unknown Butterfly / Unknown 08/17/2023 6:24 AM CDT 08/17/2023 6:55 AM CDT Senthil Mon MD CHEMISTRY Performing Organization Address [facility] de Phone Number [facility] [address] [place] [address], [place] * POTASSIUM (08/17/2023 6:24 AM CDT) Only the most recent of3 resultswithin the time period is included. POTASSIUM 4.4 3.5 - 5.1 mmol/L 08/17/2023 7:36 AM CDT [facility] Blood BLOOD SPECIMEN / Unknown Butterfly / Unknown 08/17/2023 6:24 AM CDT 08/17/2023 6:55 AM CDT Senthil Mon MD CHEMISTRY Performing Organization Address City/[facility] Co de Phone Number [facility] [address] [address], [place] * CO2,TOTAL (08/10/2023 5:56 PM CDT) CO2,TOTAL 25 22 - 29 mmol/L 08/10/2023 6:48 PM CDT [facility] Blood BLOOD SPECIMEN / Unknown Venipuncture / Unknown 08/10/2023 5:56 PM CDT 08/10/2023 6:18 PM CDT Alcides Auguste MD CHEMISTRY Performing Organization Address [facility] Co de Phone Number [facility] [address] [place] [address], * (ABNORMAL) TSH (08/02/2023 6:18 AM CDT) TSH 4.57(H) 0.27 - 4.20 uIU/mL 08/02/2023 11:48 AM CDT [facility] Blood BLOOD SPECIMEN / Unknown Venipuncture / Unknown 08/02/2023 6:18 AM CDT 08/02/2023 6:37 AM CDT Narrative [facility] - 08/02/2023 11:48 AM CDT In Adults, TSH values between 5.00 and 10.00 uIU/ml do not necessarily indicate the presence of Hypothyroidism. Correlation with clinical findings such as presence of goiter and/or Thyroperoxidase (TPO) Antibody may be helpful. For more information please refer to ANKITA 2004; 291: 228-238. Lisset Corona CHEMISTRY Performing Organization Address [facility] Co de Phone Number [facility] [address] [address], [place] * T4,FREE (08/02/2023 6:18 AM CDT) T4,FREE 1.45 0.93 - 1.70 ng/dL 08/02/2023 1:07 PM CDT [facility] Blood BLOOD SPECIMEN / Unknown Venipuncture / Unknown 08/02/2023 6:18 AM CDT 08/02/2023 6:37 AM CDT Lisset Corona CHEMISTRY [facility] [address] [place] [address], [place] * MR BRAIN WO CONTRAST (08/01/2023 9:59 PM CDT) Only the most recent of2 resultswithin the time period is included. Anatomical Region Laterality Modality BRAIN, HEAD Magnetic Resonan ce 08/02/2023 8:17 AM CDT Impressions 08/02/2023 8:17 AM CDT 1. Expected interval evolution of the adlok-nu-bdkojcos subacute infarction involving the left parietal and left temporal lobes. No new acute infarction. 2. 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 3. Large right mastoid effusion. Dictated by Baron Tolbert MD @ 08/02/2023 8:17:46 AM (Electronically Signed) Narrative 08/02/2023 8:17 AM CDT For Patients: ??As a result of the Cures Act, medical imaging exams and procedure reports are released immediately into your electronic medical record. ??You may view this report before your referring provider. ??If you have questions, please contact your health care provider. Indication Aphasia. TECHNIQUE: Multiplanar multisequence noncontrast MR images of the brain. COMPARISON: MRI brain 07/23/2023. FINDINGS: Expected interval evolution of the gkoeo-ve-elxqofnx subacute infarction involving the left parietal and left temporal lobes. No new acute infarction. Cshk-ur-rgunkomf diffuse cerebral volume loss. No midline shift. Patchy FLAIR hyperintensity in the supratentorial white matter, typical for myfk-mt-dprcimyl chronic microvascular ischemic changes. Stable chronic infarctions involving the parasagittal left frontal and left parietal lobes as well as the right carlito iveth. No recent intracranial hemorrhage or pathologic extra-axial fluid collection. The major arterial flow voids of the skullbase are preserved. Asymmetric enlargement of the right lobe. The paranasal sinuses are well aerated. Large right mastoid effusion. Procedure Note Baron Tolbert MD - 08/02/2023 For Patients: As a result of the Cures Act, medical imagingexams and procedure reports are released immediately into your electronicmedical record. You may view this report before your referring provider.If you have questions, please contact your health care provider. Indication Aphasia. TECHNIQUE: Multiplanar multisequence noncontrast MR images of the brain. COMPARISON: MRI brain 07/23/2023. FINDINGS: Expected interval evolution of the ybbpt-fn-qejwghiy subacute infarctioninvolving the left parietal and left temporal lobes. No new acute infarction. Fnpj-cs-xqqhskbj diffuse cerebral volume loss. No midline shift. PatchyFLAIR hyperintensity in the supratentorial white matter, typical rirwjlw-ss-tcvawtpv chronic microvascular ischemic changes. Stable chronicinfarctions involving the parasagittal left frontal and left parietallobes as well as the right carlito iveth. No recent intracranial hemorrhage orpathologic extra-axial fluid collection. The major arterial flow voids of the skullbase are preserved. Asymmetricenlargement of the right lobe. The paranasal sinuses are well aerated.Large right mastoid effusion. IMPRESSION: 1. Expected interval evolution of the zfhsg-ly-oxjsfzfa subacuteinfarction involving the left parietal and left temporal lobes. No newacute infarction. 2. Chronic infarctions involving the parasagittal left frontal and leftparietal lobes as well as the right hemipons. 3. Large right mastoid effusion. Dictated by Baron Tolbert MD @ 08/02/2023 8:17:46 AM (Electronically Signed) Precious Hinojosa MD MR * CT ANGIO HEAD AND NECK CAROTID (07/31/2023 5:25 PM CDT) Anatomical Region Laterality Modality BRAIN, NECK Computed Tomogra phy 07/31/2023 6:13 PM CDT Addenda Addendum by Ortiz Morrow MD on 07/31/2023 7:59 PM CDT For Patients: ??As a result of the Cures Act, medical imaging exams and procedure reports are released immediately into your electronic medical record. ??You may view this report before your referring provider. ?? If you have questions, please contact your health care provider. CLINICAL HISTORY: Increased right-sided weakness. TECHNIQUE: Standard helical CT image acquisition through the head following the administration of intravenous contrast was performed. 3D and MIP reconstructions were performed at a separate workstation and permanently archived. COMPARISON: CTA head dated 07/20/2023. FINDINGS: No significant interval change in the occlusion/near occlusion of the M3 branch of the posterior division of the left MCA. Intracranial atherosclerotic disease, most pronounced in the carotid siphons, but without resulting flow-limiting luminal stenosis. No evidence of cerebral aneurysm. No findings to suggest an arterial-venous shunting lesion. IMPRESSION: Stable appearance of the short-segment occlusion/near occlusion of the M3 branch of the posterior division of the left MCA. Please note that all CT scans at this facility use dose modulation, iterative reconstruction, and/or weight-based dosing when appropriate to reduce radiation dose to as low as reasonably achievable. Dictated by Ortiz Morrow MD @ 07/31/2023 7:59:15 PM (Electronically Signed) Impressions 07/31/2023 7:53 PM CDT Patent cervical arterial vasculature without hemodynamically significant luminal stenosis. Please note that all CT scans at this facility use dose modulation, iterative reconstruction, and/or weight-based dosing when appropriate to reduce radiation dose to as low as reasonably achievable. Dictated by Ortiz Morrow MD @ 07/31/2023 7:53:20 PM (Electronically Signed) Narrative 07/31/2023 7:53 PM CDT For Patients: ??As a result of the Century Cures Act, medical imaging exams and procedure reports are released immediately into your electronic medical record. ??You may view this report before your referring provider. ??If you have questions, please contact your health care provider. CLINICAL HISTORY: Increased right-sided weakness. TECHNIQUE: Standard helical CT image acquisition through the neck was performed after intravenous contrast bolus enhancement. 3D and MIP reconstructions were performed at a separate workstation and permanently archived. COMPARISON: CTA head and neck dated 07/20/2023. FINDINGS: The origins of the great vessels [...] in the left lobe of the thyroid gland as seen on the comparison study. Again seen is extensive subcutaneous edema within the visualized neck. Procedure Note Ortiz Morrow MD - 07/31/2023 For Patients: As a result of the Cures Act, medical imagingexams and procedure reports are released immediately into your electronicmedical record. You may view this report before your referring provider.If you have questions, please contact your health care provider. CLINICAL HISTORY: Increased right-sided weakness. TECHNIQUE: Standard helical CT image acquisition through the neck was performed afterintravenous contrast bolus enhancement. 3D and MIP reconstructions wereperformed at a separate workstation and permanently archived. COMPARISON: CTA head and neck dated 07/20/2023. FINDINGS: The origins of the great vessels from the aortic arch are patent. Thecommon carotid arteries are patent. No significant luminal stenoses of theproximal ICAs by NASCET criteria. The more distal cervical segments of theICAs are patent. The origins and cervical segments of the vertebralarteries are patent. There is an approximately 3cm hypodense nodule in the left lobe of thethyroid gland as seen on the comparison study. Again seen is extensive subcutaneous edema within the visualized neck. IMPRESSION: Patent cervical arterial vasculature without hemodynamically significantluminal stenosis. Please note that all CT scans at this facility use dose modulation,iterative reconstruction, and/or weight-based dosing when appropriate toreduce radiation dose to as low as reasonably achievable. Dictated by Ortiz Morrow MD @ 07/31/2023 7:53:20 PM (Electronically Signed) Brenda Morgan Treat DO CT * CT Head without Contrast - COOK VEGETABLE (07/31/2023 5:22 PM CDT) Only the most recent of3 resultswithin the time period is included. Anatomical Region Laterality Modality HEAD, BRAIN Computed Tomogra phy 07/31/2023 5:56 PM CDT Narrative 07/31/2023 5:56 PM CDT For Patients: ??As a result of the Cures Act, medical imaging exams and procedure reports are released immediately into your electronic medical record. ??You may view this report before your referring provider. ??If you have questions, please contact your health care provider. Indication: Stroke Technique: Noncontrast head CT Comparison: MRI 07/23/2023, head CT 07/21/2023 Findings: Generalized parenchymal volume loss with periventricular hypo lucencies likely reflecting chronic small vessel ischemic change. Hypodensity in the left parietal lobe as seen on the most recent MRI measuring 2.5 centimeters reflecting area previously seen infarct. No acute intracranial hemorrhage. There is no significant mass effect. No midline shift. No hydrocephalus. Old area of chronic infarction in the parafalcine left frontal and parietal lobes. Skull and scalp are unremarkable. Impression: 1. Evolving infarct in the left parietal lobe as seen on the most recent MRI. No acute intracranial hemorrhage. No midline shift no significant mass effect. 2. Old chronic infarction in the parafalcine left frontal and parietal lobes. Please note that all CT scans at this facility use dose modulation, iterative reconstruction, and/or weight-based dosing when appropriate to reduce radiation dose to as low as reasonably achievable. Dictated by Nena Motta MD @ 07/31/2023 5:56:26 PM (Electronically Signed) Procedure Note Nena Motta MD - 07/31/2023 For Patients: As a result of the Cures Act, medical imagingexams and procedure reports are released immediately into your electronicmedical record. You may view this report before your referring provider.If you have questions, please contact your health care provider. Indication: Stroke Technique: Noncontrast head CT Comparison: MRI 07/23/2023, head CT 07/21/2023 Findings: Generalized parenchymal volume loss with periventricular hypo lucencieslikely reflecting chronic small vessel ischemic change. Hypodensity in theleft parietal lobe as seen on the most recent MRI measuring 2.5centimeters reflecting area previously seen infarct. No acute intracranialhemorrhage. There is no significant mass effect. No midline shift. Nohydrocephalus. Old area of chronic infarction in the parafalcine leftfrontal and parietal lobes. Skull and scalp are unremarkable. Impression: 1. Evolving infarct in the left parietal lobe as seen on the most recentMRI. No acute intracranial hemorrhage. No midline shift no significantmass effect. 2. Old chronic infarction in the parafalcine left frontal and parietallobes. Please note that all CT scans at this facility use dose modulation,iterative reconstruction, and/or weight-based dosing when appropriate toreduce radiation dose to as low as reasonably achievable. Dictated by Nena Motta MD @ 07/31/2023 5:56:26 PM (Electronically Signed) Corey Suazo DO CT * XR FOOT 3 VIEWS RIGHT PORTABLE (07/31/2023 1:45 PM CDT) Anatomical Region Laterality Modality FEET, FOOT R Digital Radiogra phy Impressions 07/31/2023 3:33 PM CDT Arterial calcifications. Plantar spurring No conventional radiographic sign for osteomyelitis Anatomic alignment No suspicious or acute bone lesion. Narrative 07/31/2023 3:33 PM CDT INDICATION Pain TECHNIQUE 3 views of the right foot Corey Suazo DO GENERAL IMAGING * XR ANKLE 3 VIEWS RIGHT PORTABLE (07/31/2023 1:37 PM CDT) Anatomical Region Laterality Modality ANKLES, ANKLE R Digital Radiogra phy Impressions 07/31/2023 3:31 PM CDT Chronic changes described above, no acute or suspicious bone or joint space abnormality. Narrative 07/31/2023 3:31 PM CDT INDICATION Pain TECHNIQUE Three-view right ankle Findings: No signs of an acute fracture. ??Anatomic alignment. The ankle mortise appears normal Bones are moderately demineralized and there are extensive arterial vascular calcifications. Small plantar spur. Corey Suazo DO GENERAL IMAGING * (ABNORMAL) WHITE BLOOD COUNT (07/27/2023 5:46 AM CDT) WHITE BLOOD COUNT 3.6(L) 4.5 - 11.0 thou/cu mm 07/27/2023 5:59 AM CDT [facility] NRBC 0.0 % 07/27/2023 5:59 AM CDT [facility] ABS NRBC 0.0 thou /cu mm 07/27/2023 5:59 AM CDT [facility] Blood BLOOD SPECIMEN / Unknown Butterfly / Unknown 07/27/2023 5:46 AM CDT 07/27/2023 5:52 AM CDT Mariluz Mckeon NP HEMATOLOGY Performing Organization Address [facility] Co de Phone Number [facility] [address] [place] [address], * MAGNESIUM (07/27/2023 5:46 AM CDT) Only the most recent of3 resultswithin the time period is included. MAGNESIUM 1.8 1.6 - 2.4 mg/dL 07/27/2023 6:28 AM CDT [facility] Blood BLOOD SPECIMEN / Unknown Butterfly / Unknown 07/27/2023 5:46 AM CDT 07/27/2023 5:52 AM CDT Mariluz Mckeon NP CHEMISTRY Performing Organization Address [facility] de Phone Number [facility] [address] [place] [address], [place] * (ABNORMAL) BASIC METABOLIC PANEL (07/27/2023 5:46 AM CDT) Only the most recent of2 resultswithin the time period is included. SODIUM 137 136 - 145 mmol/L 07/27/2023 6:28 AM CDT [facility] POTASSIUM 4.3 3.5 - 5.1 mmol/L 07/27/2023 6:28 AM CDT [facility] CHLORIDE 102 98 - 107 mmol/L 07/27/2023 6:28 AM CDT [facility] CO2,TOTAL 25 22 - 29 mmol/L 07/27/2023 6:28 AM CDT [facility] ANION GAP 10 5 - 18 07/27/2023 6:28 AM CDT [facility] GLUCOSE 179(H) 70 - 99 mg/dL 07/27/2023 6:28 AM CDT [facility] CALCIUM 9.0 8.8 - 10.2 mg/dL 07/27/2023 6:28 AM CDT [facility] BUN 17 8 - 23 mg/dL 07/27/2023 6:28 AM CDT [facility] CREATININE 0.90 0.70 - 1.20 mg/dL 07/27/2023 6:28 AM CDT [facility] BUN/CREAT RATIO 19 10 - 20 6:28 AM CDT [facility] eGFR >90 >90 mL/min/1.7 3m2 07/27/2023 6:28 AM CDT [facility] Comment:As of 2021, eG FR is calculated by the CKD-EPI creatinine equation without race adjustment. ??eGFR can be influenced by muscle mass, exercise, and diet. ??The reported eGFR is an estimation only and is only applicable if the renal function is stable. Blood BLOOD SPECIMEN / Unknown Butterfly / Unknown 07/27/2023 5:46 AM CDT 07/27/2023 5:52 AM CDT Mariluz Mckeon NP CHEMISTRY [facility] [address] [place] [address], * CONTINUOUS VIDEO EEG MONITORING (07/24/2023 8:05 AM CDT) Narrative Senthil Caba MD - 07/24/2023 8:05 AM CDT Senthil Caba MD ? 07/24/2023 ??1:02 PM [facility], [address] [place], [place] ??[address] Ph: ??[phone] SPECIAL NEURODIAGNOSTIC PROCEDURE - ELECTROENCEPHALOGRAM - EEG Video EEG Report Patient Name: ??Anoop Franks : ?1955 Study Date: ?07/24/2023 Study Number: ?? [id number] Duration: ? 2729-7273, 5110-8910 (9 Hours 52 Minutes) Admit Date: ?07/20/2023 Clinical Note: 67 y.o. 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 ??EEG monitoring to assess for ictal or interictal abnormalities. ?? Condition [...] hour period. Activation Procedures: ??None. Neuroactive Medications: ??Keppra, oxcarbazepine. Results: ?? Background: ??Background activity during wakefulness reveals a 15 uV-amplitude, 8-9 Hz background, better developed on the right, with slowing on the left maximal in the left temporal chain into the 3-4 Hz range. ??The EEG is reactive to eye opening. Sleep: Stage I and stage II of sleep were identified. ??Stage II sleep is notable for symmetric sleep spindles, vertex sharp transients, and K complexes. ?? EKG: ??A resting heart rate in the 60s-80s is noted. Interictal Findings: ??None. Ictal Events: ??None. Impression: ??Abnormal EEG due to focal slowing in the left hemisphere, maximal in the left temporal chain. Clinical Correlation: ??This EEG demonstrates focal abnormalities of the left hemisphere, maximal in the left temporal chain. ?? Focal abnormalities imply localized cortical dysfunction and may be related to structural, vascular, or other focal pathologies. ?? No seizures or interictal discharges. ??Clinical correlation is recommended. Senthil Caba MD [facility] This continuous video EEG study was completed from 07/23/2023 to 07/24/2023, with a total recording duration of 18 hours and 5 minutes. Lisset Corona NEUROLOGY ORD * LEVETIRACETAM (KEPPRA) (07/24/2023 4:58 AM CDT) LEVETIRACETAM (KEPPRA) 42.9 6.0 - 46.0 ug/mL 07/24/2023 12:04 PM CDT [facility] Blood BLOOD SPECIMEN / Unknown Butterfly / Unknown 07/24/2023 4:58 AM CDT 07/24/2023 5:[address] [facility] - 07/24/2023 12:04 PM CDT Reference Range is based on Trough Steady State in patients receiving recommended daily dose. ??The relationship between serum concentrations and toxicity is not known. Bivaracetam (Briviact??) interferes with measurements of levetiracetam (Keppra??) in the ARK Levetiracetam Assay Lisset Corona SEND OUTS [facility] [address] [place] [address], * HEPATIC FUNCTION PANEL (07/21/2023 6:12 AM CDT) ALBUMIN 4.2 4.0 - 4.9 g/dL 07/22/2023 2:09 PM CDT [facility] PROTEIN,TOTAL 7.1 6.0 - 8.0 g/dL 07/22/2023 2:09 PM CDT [facility] BILIRUBIN,TOTAL 0.6 0.0 - 1.2 mg/dL 07/22/2023 2:09 PM CDT [facility] BILIRUBIN,DIRECT <0.2 0.0 - 0.3 mg/dL 07/22/2023 2:09 PM CDT [facility] BILIRUBIN,INDIRE CT 07/22/2023 2:09 PM CDT [facility] Comment:Unable to calculate, Direct Bili <0.2 ALK PHOSPHATASE 62 40 - 129 IU/L 07/22/2023 2:09 PM CDT [facility] ALT (SGPT) 13 10 - 50 IU/L 07/22/2023 2:09 PM CDT [facility] AST (SGOT) 22 10 - 50 IU/L 07/22/2023 2:09 PM CDT [facility] Blood BLOOD SPECIMEN / Unknown Venipuncture / Unknown 07/21/2023 6:12 AM CDT 07/21/2023 6:34 AM CDT Na MCDANIELS CHEMISTRY [facility] [address] [place] [address], * SCAN-CARDIAC STRIP (07/21/2023 3:06 AM CDT) [...] Narrative 07/20/2023 4:00 PM CDT ECHOCARDIOGRAM ANOOP FRANKS ?Accession#: ?? [id number] : ?1955 67 years Study Date: ?? 07/20/2023 2:40:05 PM Gender: M ? BP: ? 213/113 mmHg Height: 182.00 cm ? BSA: ?2.74 m? ? ? Weight: 166.00 kg ? Tech: ? DAKOTAH ?Referring MD: JOHN PAUL DARLING Site: ? [facility] Reading Location: [facility] IP Patient Location: Inpatient. Procedure: 2D w/ Bubbles, [...] . This study was interpreted by an [facility] accredited facility. ??Final ?? Procedure Note Claude Avila MD - 07/20/2023 ECHOCARDIOGRAM ANOOP FRANKS : 1955 67 years Study Date: 07/20/2023 2:40:05 PM Gender: M BP: 213/113 mmHg Height: 182.00 cm BSA: 2.74 m? ? ? Weight: 166.00 kg Tech: DAKOTAH Referring MD: JOHN PAUL DARLING Site: [facility] Reading Location: [facility] Patient Location: Inpatient. Procedure: 2D w/ [...] . This study was interpreted by an [facility] accredited facility. Final John Paul Darling MD ECHO ORD * SCAN-CARDIAC STRIP (07/20/2023 2:33 PM CDT) Scanner OTHER * CT ANGIO HEAD NECK CAROTID STROKE [...] as low as reasonably achievable. Dictated by rOtiz Morrow MD @ 07/21/2023 9:52:21 AM (Electronically Signed) Eder Brownlee MD CT * CT HEAD STROKE PROTOCOL WITHOUT CONTRAST (07/20/2023 1:09 PM CDT) Anatomical Region Laterality Modality BRAIN Computed Tomogra phy 07/20/2023 1:20 PM CDT Narrative 07/20/2023 1:20 PM CDT For Patients: ??As a result of the Cures Act, medical imaging exams and procedure [...] For Patients: As a result of the 21st Century Cures Act, medical imagingexams and procedure [...] * (ABNORMAL) PRO-BNP (07/20/2023 11:42 AM CDT) PRO-BNP 941(H) <125 pg/mL 07/20/2023 2:21 PM CDT [facility] Blood BLOOD SPECIMEN / Unknown Venipuncture / Unknown 07/20/2023 11:42 AM CDT 07/20/2023 11:51 AM CDT Narrative [facility] - 07/20/2023 2:21 PM CDT The following [...] ? John Paul Darling MD [facility] [address] [place] [address], * (ABNORMAL) CBC W PLT NO DIFF (07/20/2023 8:39 AM CDT) [facility] WHITE BLOOD COUNT 3.3(L) 4.5 - 11.0 thou/cu mm 07/20/2023 9:13 AM CDT [facility] RED BLOOD COUNT 5.79 4.30 - 5.90 mil/cu mm 07/20/2023 9:13 AM CDT [facility] HEMOGLOBIN 16.5 13.5 - 17.5 g/dL 07/20/2023 9:13 AM CDT [facility] HEMATOCRIT 51.0 37.0 - 53.0 % 07/20/2023 9:13 AM CDT [facility] MCV 88 80 - 100 fL 07/20/2023 9:13 AM CDT [facility] MCH 28.5 26.0 - 34.0 pg 07/20/2023 9:13 AM CDT [facility] MCHC 32.4 32.0 - 36.0 g/dL 07/20/2023 9:13 AM T [facility] RDW 13.3 11.5 - 15.5 % 07/20/2023 9:13 AM T [facility] PLATELET COUNT 164 140 - 440 thou/cu mm 07/20/2023 9:13 AM T [facility] MPV 12.2(H) 6.5 - 11.0 fL 07/20/2023 9:13 AM CDT [facility] NRBC 0.0 % 07/20/2023 9:13 AM T [facility] ABS NRBC 0.0 thou /cu mm 07/20/2023 9:13 AM T [facility] Blood BLOOD SPECIMEN / Unknown Venipuncture / Unknown 07/20/2023 8:39 AM CDT 07/20/2023 8:48 AM CDT Ruben Dillard MD HEMATOLOGY [facility] [address] [place] [address], * LIPID PANEL (07/20/2023 8:39 AM CDT) [facility] CHOLESTEROL,TOTAL 145 100 - 199 mg/dL 07/20/2023 9:31 AM CDT [facility] Comment: Cholesterol, Total Reference Ranges Desirable <200 mg/dL Borderline 200-239 mg/dL High >=240 mg/dL TRIGLYCERIDES 91 <150 mg/dL 07/20/2023 9:31 AM CDT [facility] [facility] HDL CHOLESTEROL 51 >40 mg/dL 9:31 AM CDT [facility] NON-HDL CHOLESTEROL 94 <145 mg/dl 07/20/2023 9:31 AM CDT [facility] CHOL/HDL RATIO 2.84 <4.50 07/20/2023 9:31 AM CDT [facility] LDL CHOLESTEROL 76 <=130 mg/dL 07/20/2023 9:31 AM CDT [facility] VLDL CHOLESTEROL 18 <=30 mg/dL 07/20/19 9:31 AM T [facility] Blood BLOOD SPECIMEN / Unknown Venipuncture / Unknown 07/20/2023 8:39 AM CDT 07/20/2023 8:48 AM CDT John Paul Darling MD CHEMISTRY [facility] [address] [place] [address], * CONTINUOUS VIDEO EEG MONITORING (07/20/2023 6:24 AM CDT) Narrative Senthil Caba MD - 07/20/2023 6:24 AM CDT Senthil Caba MD ? 07/21/2023 10:40 AM [facility], [address] [place], [place] ??[address] Ph: ??[phone] SPECIAL NEURODIAGNOSTIC PROCEDURE - ELECTROENCEPHALOGRAM - EEG Video EEG Report Patient Name: ??Anoop Franks : ?[id number] Study Date: ?07/20/2023 Study Number: ?? [id number] Duration: ? 8719-3123, 8117-3181, [id number], [id number] (9 Hours 47 Minutes) Admit Date: ?07/20/2023 Clinical Note: 67 y.o. male with history of seizures who is transferred from [facility] where he presented with a history of [...] ??Clinical correlation is recommended. Senthil Caba MD [facility] This continuous video EEG study was completed on 07/20/2023, with a total recording duration of 9 hours and 47 minutes. Ruben Dillard MD NEUROLOGY ORD from Last 3 Months Additional Health Concerns Infection Onset Date Last Indicated MDRO Clearance Comment:Infection Control Note: Hx of MRSA, surveillance criteria met, no need for further testing or isolation precautions. Do not delete or resolve the Infection Flag. 04/06/2022 04/06/2022 Advance Directives * DNR (Latest Code Status on File) Date Activated Date Inactivated Comments 07/26/2023 7:12 PM 08/19/2023 5:53 PM DNR/DNI Question Answer Comments Code Status Discussion: Reviewed Preferences * Full Code Date Activated Date Inactivated Comments 07/26/2023 4:52 PM 07/26/2023 7:12 PM Question Answer Comments Code Status Discussion: Reviewed Preferences * Full Code Date Activated Date Inactivated Comments 07/20/2023 3:56 AM 07/26/2023 4:39 PM Question Answer Comments Code Status Discussion: Reviewed Preferences * Full Code Date Activated Date Inactivated Comments 04/10/2022 11:38 AM 04/10/2022 5:41 PM Question Answer Comments Code Status Discussion: Not Discussed * Full Code Date Activated Date Inactivated Comments 04/24/2018 10:17 PM 05/05/2018 5:22 PM Care Teams Translation Director Relationship Specialty Start Date End Date Isaac Logan MD PCP - General Family Practice 04/01/[address] [address] 09/24/23
--- NOTE | 2023-09-27 18:57 | ED.NURSE ---
Pt is alert to self, pt is unable to say where he is, or what the situation is. Pt is seeming to have a difficulty with word finding at this time.
--- NOTE | 2023-09-27 19:00 | ED.NURSE ---
Pt , Shamethia updated with pt status and disposition.
--- NOTE | 2023-09-27 19:41 | ED.NURSE ---
Pt repositioned onto right side
== END 2023-09-27 21:06 | disposition other institution (70) ==
LOC: ED 18:09
PROVIDERS: Emergency Provider Emergency Medicine; PCP Family Medicine
DX: R41.82 Altered mental status, unspecified (principal)
CPT/HCPCS: 36415; 70450; 70551; 80048; 80076; 81001; 85025; 86140; 87631; 93005; 94761; 99284; 99285; 99291

== ENCOUNTER 2023-09-27 20:55 | Outpatient (CLI) | payer MEDICARE, BC, SELFPAY | END 2023-09-27 20:56 | disposition home or self-care (01) | LOC: AMB 10-06 00:50 | PROVIDERS: PCP Family Medicine; Visit Provider Family Medicine | DX: I67.82 Cerebral ischemia (principal); I63.9 Cerebral infarction, unspecified | CPT/HCPCS: A0425; A0429 ==